=== PATIENT | male | born 1940 | race Caucasian/White ===

== ENCOUNTER 2019-10-05 22:07 | Observation (INO) ==
[2019-10-05] MEDS ORDERED: methylPREDNISolone 125 MG/2 ML VIAL IV STA (22:33)
[2019-10-05 22:54] LABS: Basophils # (auto) 0.03 K/uL (0-0.2); Basophils % (auto) 0.4 %; Eosinophils # (auto) 0.34 K/uL (0-0.5); Eosinophils % (auto) 4.2 %; Hematocrit (blood only) 42.7 % (42-52); Hemoglobin 13.8 g/dL (14.0-18.0); Immature Granulocytes # (auto) 0.03 K/uL (0.00-0.02); Immature Granulocytes % (auto) 0.4 %; Lymphocytes # (auto) 1.37 K/uL (1.2-3.4); Mean Corpuscular Hemoglobin 30.4 pg (25-34); Mean Corpuscular Hgb Conc 32.3 g/dL (32-36); Mean Corpuscular Volume 94.1 fL (80-100); Mean Platelet Volume 9.2 fL (7.4-10.4); Monocytes # (auto) 0.46 K/uL (0.11-0.59); Monocytes % (auto) 5.7 %; Neutrophils # (auto) 5.81 K/uL (1.4-6.5); Neutrophils % (auto) 72.3 %; Platelet Count 314 K/uL (130-400); RDW Coefficient of Variation 13.2 % (11.5-14.5); RDW Standard Deviation 45.2 fL (36.4-46.3); Red Blood Count 4.54 M/uL (4.7-6.1); White Blood Count 8.04 K/uL (4.8-10.8)
--- NOTE | 2019-10-05 23:06 | XRay Report ---
XR chest 1V portable CLINICAL HISTORY: Chest pain. COMPARISON STUDY: No previous studies for comparison. FINDINGS: Note is made of mild cardiomegaly. There is mild interstitial thickening. Right hilar promi nence is noted. A 1.1 cm nodular opacity within the left lower lung is noted. Multiple old right rib fractures are present. No consolidation is identified. There is suspected underlying emphysema. Multi level vertebroplasty within the thoracic spine is present. IMPRESSION: 1. Interstitial thickening. This may reflect mild pulmonary edema superimposed upon emphysema. 2. 1.1 cm nodular opacity within the left lower lung. PA and lateral chest radiographs are recommend ed. 3. Right hilar prominence, likely due to pulmonary vessels. However, this can be assessed on follow-u p chest radiograph. ACT 112: Negative or not required by law. Electronically signed by: Duglas Villafuerte M.D. 10/05/2019 11:05 PM
[2019-10-05 23:40] LABS: Partial Thromboplastin Time 25.8 Seconds (21.0-31.0); Prothrombin Time 10.4 Seconds (9.0-12.0)
[2019-10-05] MEDS ORDERED: SODIUM CHLORIDE 0.9% 1000ML 250 ML IV ONE (23:44)
[2019-10-05 23:49] LABS: Alanine Aminotransferase 25 U/L (12-78); Albumin Globulin Ratio 0.9 (0.9-2); Albumin Level 3.6 gm/dl (3.4-5.0); Alkaline Phosphatase 84 U/L (45-117); BUN Creatinine Ratio 16.9 (10-20); Bilirubin,Total 0.4 mg/dl (0.2-1); Blood Urea Nitrogen 22 mg/dl (7-18); Calcium 8.7 mg/dl (8.5-10.1); Carbon Dioxide 29 mmol/L (21-32); Chloride 106 mmol/L (98-107); Est GFR (African American) 62.2; Est GFR (Non-African American) 53.6; Globulin 4.1 gm/dl (2.5-4.0); Glucose 168 mg/dl (70-99); Lipase 90 U/L (73-393); Sodium 142 mmol/L (136-145); Total Protein 7.7 gm/dl (6.4-8.2); Troponin I < 0.015 ng/ml (0-0.045)
--- NOTE | 2019-10-05 23:57 | Emergency Department Note ---
Entered by Paras Kay acting as a scribe for History of Present Illness General Chief complaint: Shortness of Breath/Dyspnea Stated complaint: SOB Time Seen by Provider: 10/05/19 22:16 Source: patient History of Present Illness Onset (ago): hour(s) (this evening) Location: chest Pain Consistency: + constant Quality: + other (SOB) Relieved By: + other (steroids and breathing treatments) Associated symptoms: + denies other symptoms (diarrhea, pain or swelling to his legs, weight gain, trouble eating or drinking) and + other (bloated); no chest pain, no cough and no nausea/vomiting The patient is a 79 y/o male who presents to the ED w/ CC of constant shortness of breath beginning just after dinner this evening. The patient states he has a history of being short of breath, but it has never been this severe. He reports he felt baseline today, and he wears oxygen all the time for his history of COPD and possibly emphysema. The patient notes he ate more today than he normally does, and he feels very bloated. He states he uses an inhaler for his lung history, and he tried it today without relief. The patient reports he normally feels better after having steroids. He notes he came to the ED via EMS and was given two nebulizers in route, and it helped him. The patient states he has had his asthma since he was a child, and he has taken Metoprolol for a while. He reports he also has a history of a-fib and does not know when he is in a-fib. He notes he was evaluated in the [place] ED about a week ago for shortness of breath and a rapid heart rate. He states his symptoms were controlled and attributed to his a-fib at the time. The patient notes he also has a history of a leaky valve. He denies a history of CHF, DM, blood clots, and an [place]. He also denies coughing, chest pain, pain or swelling to his legs, weight gain, trouble eating or drinking, nausea, vomiting, and diarrhea. Home Medications Home Medications Medication Instructions Recorded Confirmed Type alprazolam 0.25 mg PO BID 10/05/19 10/05/19 History amitriptyline 0 mg PO DAILY 10/05/19 10/05/19 History aspirin [Aspirin Low Dose] 81 mg PO DAILY 10/05/19 10/05/19 History cyanocobalamin-cobamamide [B12] 1 kameron SUBLINGUAL DAILY 10/05/19 10/05/19 History fluticasone propionate [Flonase 1 spray INTRANASAL DAILY 10/05/19 10/05/19 History Allergy Relief] hydrochlorothiazide 12.5 mg PO DAILY 10/05/19 10/05/19 History lisinopril 0 mg PO DAILY 10/05/19 10/05/19 History metoprolol tartrate 50 mg PO BID 10/05/19 10/05/19 History mometasone [Asmanex Twisthaler] 2 inh INHALATION BID 10/05/19 10/05/19 History multivitamin 1 cap PO DAILY 10/05/19 10/05/19 History nitroglycerin [Nitrostat] 0.4 mg SUBLINGUAL DAILY PRN 10/05/19 10/05/19 History oxycodone-acetaminophen [Percocet] 1 tab PO TID 10/05/19 10/05/19 History pantoprazole [Protonix] 40 mg PO BID 10/05/19 10/05/19 History tamsulosin 0.4 mg PO DAILY 10/05/19 10/05/19 History tiotropium-olodaterol [Stiolto 2 puff INHALATION DAILY 10/05/19 10/05/19 History Respimat] Allergies Allergy/AdvReac Type Severity Reaction Status Date / Time No Known Allergies Allergy Unverified 10/05/19 22:53 Past Med/Surg History Medical History A-fib Asthma COPD (chronic obstructive pulmonary disease) Emphysema of lung Leaky heart valve Surgical History No pertinent past surgical history Family History Other Family history non-contributory Social History Feels Safe at Home: Yes Smoking Status: Never smoker Review of Systems See HPI for pertinent positives & negatives. and A total of 10 systems reviewed and were otherwise negative Physical Exam Vital Signs Vital Signs - 24 hr 10/05/19 22:11 10/05/19 22:15 10/05/19 22:34 Temperature 37.1 C Temperature Source Oral Pulse Rate 123 H Pulse Rate [Apical] Respiratory Rate Blood Pressure 173/104 H Blood Pressure [Right Arm] Blood Pressure Mean 127 Blood Pressure Mean [Right Arm] Pulse Oximetry 96 98 93 Oxygen Delivery Method Nasal Cannula Nasal Cannula Nasal Cannula Oxygen Flow Rate 5 5 5 Sepsis Recent Fever Within 48 Hours No Sepsis Action Taken by Nursing No Action Required 10/05/19 23:18 10/05/19 23:32 10/06/19 00:51 Temperature Temperature Source Pulse Rate Pulse Rate [Apical] 122 H 125 H 126 H Respiratory Rate 20 15 15 Blood Pressure Blood Pressure [Right Arm] 141/89 H 160/96 H 174/91 H Blood Pressure Mean Blood Pressure Mean [Right Arm] 106 117 118 Pulse Oximetry 96 98 95 Oxygen Delivery Method Nasal Cannula Nasal Cannula Nasal Cannula Oxygen Flow Rate 5 5 Sepsis Recent Fever Within 48 Hours Sepsis Action Taken by Nursing General: Non-ill appearing older male on supplemental oxygen. HEENT: Normal cephalic atraumatic. Pupils are equal round and reactive to light. Extraocular movements are intact. Oropharynx is pink with moist mucous membranes. No swelling of the mouth lips or tongue. Neck: Supple with a midline trachea. No meningeal signs or stiffness, no JVD or bruits. No Stridor. Chest: Clear to auscultation bilaterally. No wheezes or rhonchi. No increased work of breathing. Heart: Mildly tachycardic in the 120s with frequent ectopy. Abdomen: Soft nontender, nondistended without rebound guarding or rigidity. Extremities: No cyanosis clubbing or edema. No calf tenderness or asymmetry Spine/Back. Non tender to palpation. No CVA tenderness Skin: Good turgor without rashes. Neurologic exam: Cranial nerves two through 12 are intact. Motor and sensation are intact and symmetrical throughout. Course Course 2216: The patient was evaluated in room C10. A complete history and physical exam was performed. 2341: I reevaluated the patient. He is feeling slightly dizzy. His repeat EKG shows sinus rhythm. His vital signs are stable. His labs hemolyzed and are being redrawn. 0004: The patient is still tachycardic but feeling okay. I ordered a CT scan of the chest. 0054: Upon reevaluation, the patient is resting comfortably. I discussed laboratory and radiographic results with him. He verbalized agreement of the treatment plan. The patient will be evaluated for further management and care. 0100: I reviewed the patient's case with Dr. Allred, [facility]. He will evaluate the patient for further management. Administered Medications Ioversol (Optiray 320 125ml) 125 ml IV ONCE PRN PRN Reason: Interaction Checking Stop: 10/10/19 00:23 Last Admin: 10/06/19 00:25 Dose: 94 ml Documented by: [id number] Discontinued Medications Sodium Chloride (Nss 1000ml) 250 mls @ 999 mls/hr IV .Q16M ONE Stop: 10/05/19 23:59 Last Infusion: 10/06/19 00:28 Dose: 0 mls/hr Documented by: [id number] Admin: 10/05/19 23:53 Dose: 999 mls/hr Documented by: [id number] Methylprednisolone (Solumedrol) 125 mg IV NOW STA Stop: 10/05/19 22:34 Last Admin: 10/05/19 22:47 Dose: 125 mg Documented by: [id number] Medical Decision Making Differential Diagnosis Differential diagnosis includes: COPD exacerbation, CHF, arrhythmia, a-fib, infection, electrolyte or metabolic abnormalities. Medical Records Attestation: I reviewed the patient's medical records. Home Medications Current Medication List: was personally reviewed by me Laboratory Data Attestation: I reviewed the patient's lab results. Result diagrams: 10/05/19 22:45 10/05/19 23:15 Lab Results 10/05/19 10/05/19 10/05/19 Range/Units 22:45 22:45 22:45 WBC 8.04 (4.8-10.8) K/uL RBC 4.54 L (4.7-6.1) M/uL Hgb 13.8 L (14.0-18.0) g/dL Hct 42.7 (42-52) % MCV 94.1 (80-100) fL MCH 30.4 (25-34) pg MCHC 32.3 (32-36) g/dL RDW Std Deviation 45.2 (36.4-46.3) fL RDW Coeff of Nithya 13.2 (11.5-14.5) % Plt Count 314 (130-400) K/uL MPV 9.2 (7.4-10.4) fL Immature Gran % (Auto) 0.4 % Neut % (Auto) 72.3 % Lymph % (Auto) 17.0 % [place] % (Auto) 5.7 % Eos % (Auto) 4.2 % Baso % (Auto) 0.4 % Immature Gran # (Auto) 0.03 H (0.00-0.02) K/uL Neut # (Auto) 5.81 (1.4-6.5) K/uL Lymph # (Auto) 1.37 (1.2-3.4) K/uL [place] # (Auto) 0.46 (0.11-0.59) K/uL Eos # (Auto) 0.34 (0-0.5) K/uL Baso # (Auto) 0.03 (0-0.2) K/uL PT Cancelled INR Cancelled APTT Cancelled PTT Ratio Cancelled Sodium Cancelled Potassium Cancelled Chloride Cancelled Carbon Dioxide Cancelled Anion Gap Cancelled BUN Cancelled Creatinine Cancelled Est Cr Clr Drug Dosing Cancelled Est GFR ( Amer) Cancelled Est GFR (Non-Af Amer) Cancelled BUN/Creatinine Ratio Cancelled Glucose Cancelled Calcium Cancelled Magnesium Cancelled Total Bilirubin Cancelled AST Cancelled ALT Cancelled Alkaline Phosphatase Cancelled Troponin I Cancelled Total Protein Cancelled Albumin Cancelled Globulin Cancelled Albumin/Globulin Ratio Cancelled Lipase Cancelled 10/05/19 10/05/19 10/05/19 Range/Units 22:45 23:15 23:15 WBC (4.8-10.8) K/uL RBC (4.7-6.1) M/uL Hgb (14.0-18.0) g/dL Hct (42-52) % MCV (80-100) fL MCH (25-34) pg MCHC (32-36) g/dL RDW Std Deviation (36.4-46.3) fL RDW Coeff of Nithya (11.5-14.5) % Plt Count (130-400) K/uL MPV (7.4-10.4) fL Immature Gran % (Auto) % Neut % (Auto) % Lymph % (Auto) % [place] % (Auto) % Eos % (Auto) % Baso % (Auto) % Immature Gran # (Auto) (0.00-0.02) K/uL Neut # (Auto) (1.4-6.5) K/uL Lymph # (Auto) (1.2-3.4) K/uL [place] # (Auto) (0.11-0.59) K/uL Eos # (Auto) (0-0.5) K/uL Baso # (Auto) (0-0.2) K/uL PT 10.4 INR 1.0 APTT 25.8 PTT Ratio 1.0 Sodium 142 Potassium Chloride 106 Carbon Dioxide 29 Anion Gap 7.0 BUN 22 H Creatinine 1.28 Est Cr Clr Drug Dosing 38.0 Est GFR ( Amer) 62.2 Est GFR (Non-Af Amer) 53.6 BUN/Creatinine Ratio 16.9 Glucose 168 H Calcium 8.7 Magnesium Cancelled Total Bilirubin 0.4 AST ALT 25 Alkaline Phosphatase 84 Troponin I < 0.015 Total Protein 7.7 Albumin 3.6 Globulin 4.1 H Albumin/Globulin Ratio 0.9 Lipase 90 Imaging Data Radiologist's Impression: Radiology results as stated below per my review and the [facility] radiologist's interpretation: CTA CHEST: Soft tissues: Thoracic inlet, bilateral axilla are unremarkable. Severe kyphosis of the mid thoracic spine. Vertebroplasty/kyphoplasty changes are noted. Residual compression deformities of the lower thoracic and upper lumbar levels. Negative for any significant mediastinal lymphadenopathy. Small left and right hilar nodes are seen. There is atherosclerotic changes of the mitral valve, left greater than right coronary calcifications. Normal caliber of the pulmonary artery. Negative for pulmonary embolism. Negative for right ventricular strain. Upper abdomen: Normal Lungs: Extensive upper lung bullous and centrilobular emphysematous changes. 8 mm nodular opacity with small cavitation seen in the posterior right upper lobe and another 4 mm in the mid right upper lobe. Additional nodular scarring in the anterolateral periphery of the right middle lobe. Bilateral peripheral parenchymal pleural tags including in the right posterior upper lung. Left apical scarring is seen. Impression: 1. Negative for pulmonary embolism. 2. Extensive bilateral lung emphysematous changes with areas of nodular scarring. Right upper lung small nodular opacities are seen. Follow-up is suggested. 3. Severe kyphosis of the thoracolumbar spine with vertebroplasty/kyphoplasty changes. Residual compression deformities. Radiologist: Anita Chacon MD Study ready at 00:27 and initial results transmitted at 00:53 ECG Data Attestation: I personally reviewed and interpreted this ECG as follows: Indication: + SOB/dyspnea Rate (beats per minute): 123 Rhythm: + sinus tachycardia ECG ST segments: + Nonspecific ST abnormalities ECG Findings: + PVCs (Occasional), + LVH and + Other (Poor baseline, nonspecific T wave abnormalities) Comparison ECG Date: no prior available Additional Comments: REPEAT EKG IN THE SAME VISIT: Sinus tachycardia with a rate of 119. LVH. No ST elevation or ST depression. No change from the patient's initial EKG. Blood Pressure Blood Pressure Findings: Elevated blood pressure Blood Pressure Disposition: further management by hospitalist [facility] Narrative This patient comes in as described above. He has had some shortness of breath. He did receive albuterol nebs prior to arrival and was feeling quite a bit better. He still remains tachycardic. He denies any chest pain. He does have history of A. fib. On the monitor is difficult to say initially because he has a lot of ectopy but it appears to be's normal sinus rhythm. He has stable vital signs is normotensive with exception of some sinus tachycardia. He has had no swelling in his legs. He has no crackles on his lungs and if anything the lungs are diminished he was offered further nebs and declined he had 2 on route that could be causing some of his tachycardia chest x-ray shows some chronic changes he may have a mild congestive component. He has no pneumonia. EKG when repeated shows sinus tachycardia without any changes compared to EKG #1. He has no white count or fever to suggest infection. He is not anemic. He has no acute electrolyte or metabolic abnormalities. Troponin is negative. I did do a chest CTA there is no PE, there is no pneumonia. There is some chronic emphysematous changes. There is some small apical lesions in the body the report they do report a small cavitary component. I do not think this is likely TB but did put him on respiratory/airborne isolation. I have consulted Dr. Allred who to see him in the ER for further treatment and evaluation and admission/observation. Impression & Plan Acute exacerbation of chronic obstructive airways disease, Shortness of breath, Tachycardia, Lung nodule Discharge Plan Visit Data Chief Complaint: Shortness of Breath/Dyspnea Stated Complaint: SOB ED Provider: [place] D Discharge Problem: Acute exacerbation of chronic obstructive airways disease, Shortness of breath, Tachycardia, Lung nodule Patient Disposition: Being Evaluated by Hospitalist Forms Stand Alone Forms: My [facility] Prescriptions Prescriptions: No Action aspirin [Aspirin Low Dose] 81 mg Tablet,Delayed Release (Dr/Ec) 81 mg PO DAILY RF: 0 oxycodone-acetaminophen [Percocet] 5-325 mg Tablet 1 tab PO TID RF: 0 alprazolam 0.25 mg Tablet 0.25 mg PO BID RF: 0 tamsulosin 0.4 mg Capsule 0.4 mg PO DAILY RF: 0 amitriptyline 10 mg Tablet 0 mg PO DAILY RF: 0 pantoprazole [Protonix] 40 mg Tablet,Delayed Release (Dr/Ec) 40 mg PO BID RF: 0 metoprolol tartrate 50 mg Tablet 50 mg PO BID RF: 0 hydrochlorothiazide 12.5 mg Capsule 12.5 mg PO DAILY RF: 0 nitroglycerin [Nitrostat] 0.4 mg Tablet, Sublingual 0.4 mg sublingual DAILY PRN (Reason: Chest Pain) RF: 0 lisinopril 5 mg Tablet 0 mg PO DAILY RF: 0 multivitamin Capsule 1 cap PO DAILY RF: 0 fluticasone propionate [Flonase Allergy Relief] 50 mcg/actuation [place],Suspension 1 spray INTRANASAL DAILY RF: 0 Asmanex Twisthaler 110 mcg/ actuation (30) Aerosol Powdr Breath Activated 2 inh INHALATION BID RF: 0 B12 5,000-100 mcg Lozenge 1 kameron SUBLINGUAL DAILY RF: 0 Stiolto Respimat 2.5-2.5 mcg/actuation Mist 2 puff INHALATION DAILY RF: 0 Referrals Referrals: PCP,NO [Primary Care Provider] - The juvenalibe's documentation has been prepared under my direction and personally reviewed by me in its entirety. I confirm that the note above accurately reflects all work, treatment, procedures, and medical decision making performed by me.
[2019-10-06] MEDS ORDERED: OPTIRAY 320 125ml IV PRN (00:24)
[2019-10-06] MEDS ORDERED: FLUTICASONE PROPIONATE NA SPR 16 GM BTL STA (01:46)
[2019-10-06] MEDS ORDERED: NITROGLYCERIN SL 0.4 MG/TAB TAB SL PRN ×2 (02:59)
[2019-10-06] MEDS ORDERED: ACETAMINOPHEN 325 MG TAB PO PRN (02:59)
[2019-10-06] MEDS ORDERED: LEVALBUTEROL 1.25MG/0.5ML NEB INH PRN (02:59)
[2019-10-06] MEDS ORDERED: ONDANSETRON INJ 2 MG/ML 2 ML VIAL IV PRN (02:59)
[2019-10-06] MEDS ORDERED: IPRATROPIUM BROMIDE NEB SOLN 0.02% 2.5 ML VIAL INH PRN (02:59)
[2019-10-06] MEDS ORDERED: XOPENEX/ATROVENT 1.25mg/0.5MG NEB COMBO NEB PRN (02:59)
[2019-10-06] MEDS ORDERED: POLYETHYLENE (MIRALAX) 17 GM PACK PO PRN (02:59)
[2019-10-06] MEDS ORDERED: OXYCODONE/ACETAMINOPHEN 5mg/325mg TAB PO STA (03:14)
--- NOTE | 2019-10-06 04:16 | History and Physical Report ---
DATE OF ADMISSION: 10/06/2019 CHIEF COMPLAINT: Shortness of breath. HISTORY OF PRESENT ILLNESS: A 79-year-old male with past medical history significant for COPD, chronic respiratory failure on 5 liters oxygen all the time, recently found to have a leaky heart valve, history of atrial fibrillation, not on anticoagulation except for aspirin secondary to history of gastric ulcers, history of asthma, comes with shortness of breath. The patient from [facility], visiting the [facility], here for last couple of days. On the day after dinner, started feeling short of breath, this got progressively worse that is why he came to the ER. Currently, is saturating okay on his baseline 5 liters though he seems to be somewhat tachypneic. He was tachycardic and EKG shows sinus tachycardia. Denies any chest pain. Currently feeling better. Denies any cough, no headaches, felt dizzy. No blurred visions. No earache. Has some stuffed nose. No sore throat, no difficulty swallowing, no chest pain, no nausea, no vomiting, no abdominal pain. Normal bowel and bladder movements. No blood in the stools or black stools, no hematuria, no burning micturition, no swelling of the legs, no rash. Ambulates okay. Denies any exposure to TB or any outside travelling out of the country. ALLERGIES: No known drug allergies. PAST MEDICAL HISTORY: As mentioned above. PAST SURGICAL HISTORY: He has 2 lumbar laminectomies and one kyphoplasty, right hip surgery. MEDICATIONS: The patient is on alprazolam 0.25 mg b.i.d., amitriptyline 25 mg p.o. daily, aspirin 81 mg p.o. daily, cyanocobalamin 1000mcg sublingual daily, Flonase 1 spray daily, hydrochlorothiazide 12.5 daily, lisinopril 5 mg daily, metoprolol 50 mg p.o. b.i.d., Asmanex 2 inhalations b.i.d., multivitamin 1 capsule daily, nitroglycerin 0.4 mg sublingual p.r.n., Percocet 1 tablet p.o. t.i.d., Protonix 40 mg p.o. b.i.d., Flomax 0.4 mg daily, Stiolto Respimat 2 inhalation daily. FAMILY HISTORY: Noncontributory. SOCIAL HISTORY: Quit smoking 8 years ago. Prior to that smoked 1 pack a day. Alcohol rarely. Lives with his mother and the daughter. REVIEW OF SYMPTOMS: As per HPI. Rest of review of symptoms negative. PHYSICAL EXAMINATION: GENERAL: The patient is of moderate build, not in acute distress. VITAL SIGNS: Temperature 37.1, pulse 117, respiratory rate 20, blood pressure 148/75, oxygen 98% on 5 liters. HEENT: Pupils equal, round, reactive to light. Extraocular muscles intact. NECK: No JVD, no neck masses, no carotid bruits. CARDIOVASCULAR: S1, S2 heard. Tachycardia. No murmurs. RESPIRATORY SYSTEM: Normal AP diameter, tachypnea. Diminished breath sounds. No wheezing, no crackles. ABDOMEN: Soft, bowel sounds present. No distention. CENTRAL NERVOUS SYSTEM: Cranial nerves II-XII grossly intact. Nonfocal. EXTREMITIES: No edema, no erythema. LABORATORY DATA: WBC 8, hemoglobin 13.8, hematocrit 42.7, platelets 314. PT 10.4, INR 1, APTT 25.8. Sodium 142, chloride 106, [id number], BUN 22, creatinine 1.2, serum glucose 168, calcium 8.7, total bilirubin 0.4, ALT 25, alkaline phosphatase 84. Troponin I less than 0.015. Lipase 90. Chest x-ray, interstitial thickening is noted with mild pulmonary edema, superimposed on emphysema, 1.1 cm nodular opacity with left lung, PA and lateral chest radiographs are recommended, right hilar prominence likely due to pulmonary vessels, followup with repeat chest x-ray. CTA chest stat read negative for pulmonary embolism, extensive bilateral lung emphysematous changes with areas of nodular scarring, right upper lung small nodular opacities are seen. severe kyphosis of the thoracolumbar spine with vertebroplasty, kyphoplasty changes with compression deformities. EKG: Sinus tachycardia. PACs at the rate of 119. Left ventricular hypertrophy with repolarization abnormality. ASSESSMENT AND PLAN: This is a 79-year-old male with history of chronic obstructive pulmonary disease, chronic respiratory failure, presents with shortness of breath. 1. Shortness of breath: chronic obstructive pulmonary disease exacerbation: CTA negative for pulmonary embolism but showed nodular lesions, nebs and steroids given in the ER, will continue with IV Solu-Medrol 40 t.i.d., nebs with Xopenex, nebs around the clock and p.r.n. and p.o. doxycycline. We will consult pulmonary for nodular lesions with cavitations and follow the final report of the CAT scan. On isolation precautions. Monitor in tele floor. 2. History of atrial fibrillation: Currently in sinus rhythm. He says he follows with cardiology. He was not put on anticoagulation secondary to history of gastric ulcers. Currently on metoprolol 50 b.i.d. which we will continue and aspirin 81 mg p.o. daily. We will monitor. 3. Hypertension: Continue his lisinopril hydrochlorothiazide and Lopressor. Monitor the blood pressure. 4. Gastroesophageal reflux disease: Continue PPI. 5. BPH: Continue Flomax. 6. Deep venous thrombosis prophylaxis: SCDs. DISPOSITION: Monitor in tele floor. Level 1 full code, only if there is chance of recovery as per my discussion with the patient. PT and OT per discharge. Social Service to help with discharge planning. MITCH
--- NOTE | 2019-10-06 06:49 | CT Scan Report ---
CT ANGIOGRAM OF THE CHEST CLINICAL HISTORY: Atypical chest pain and shortness of breath. Possible pulmonary embolism. COMPARISON STUDY: Chest x-ray dated 10/05/2019 TECHNIQUE: Following the IV administration of 94 mL of Optiray-320, CT angiogram of the thorax was pe rformed from the thoracic inlet to the lung bases utilizing the pulmonary embolus protocol. Images ar e reviewed in the axial, sagittal, and coronal planes. IV contrast was administered without complicat ion. MIP imaging was performed. A dose lowering technique was utilized adhering to the principles of ALARA. CT DOSE: 323.73 mGy.cm FINDINGS: Hilar lymph nodes are the upper limits of normal in size. There is no pathologic mediastinal or axill perez lymphadenopathy There was no evidence of thoracic aortic dilatation. There were no pulmonary artery filling defects to indicate acute pulmonary embolism. No pleural effusions are visualized. There is severe pulmonary emphysema. There is a 1 cm pleural-based density within the lingula which c orresponds to the abnormality described on the recent chest x-ray. There is a 1 cm right upper lobe p ulmonary nodule. There is a 17 x 8 mm pleural-based opacity within the right lower lobe. There is no lobar consolidation. There are additional subpleural nodular parenchymal opacities, statistically rep resenting atelectasis or scar. A six-month follow-up CT scan is recommended. There are multiple thora cic vertebral body compression deformities. The patient is status post 3 level vertebroplasty. IMPRESSION: 1. No evidence of acute pulmonary embolism 2. Severe pulmonary emphysema 3. Multifocal subpleural nodular opacities, likely represent areas of atelectasis or scarring. Given the nonspecificity of the findings, a six-month follow-up CT scan is recommended. ACT 112: Negative or not required by law. Electronically signed by: Giovanni Vaca M.D. 10/06/2019 6:48 AM
[2019-10-06] MEDS ORDERED: IPRATROPIUM BROMIDE NEB SOLN 0.02% 2.5 ML VIAL INH SCH (07:00)
[2019-10-06] MEDS ORDERED: XOPENEX/ATROVENT 1.25mg/0.5MG NEB COMBO NEB SCH (07:00)
[2019-10-06] MEDS ORDERED: LEVALBUTEROL 1.25MG/0.5ML NEB INH SCH (07:00)
[2019-10-06 07:10] LABS: Hemoglobin 13.1 g/dL (14.0-18.0); Immature Granulocytes # (auto) 0.03 K/uL (0.00-0.02); Immature Granulocytes % (auto) 0.5 %; Lymphocytes # (auto) 0.31 K/uL (1.2-3.4); Lymphocytes % (auto) 4.8 %; Mean Corpuscular Hemoglobin 29.8 pg (25-34); Mean Corpuscular Volume 93.2 fL (80-100); Mean Platelet Volume 9.2 fL (7.4-10.4); Monocytes # (auto) 0.02 K/uL (0.11-0.59); Monocytes % (auto) 0.3 %; Neutrophils # (auto) 6.04 K/uL (1.4-6.5); Neutrophils % (auto) 94.4 %; Platelet Count 343 K/uL (130-400); RDW Coefficient of Variation 13.1 % (11.5-14.5); RDW Standard Deviation 44.9 fL (36.4-46.3)
[2019-10-06 07:30] LABS: BUN Creatinine Ratio 17.9 (10-20); Calcium 9.1 mg/dl (8.5-10.1); Creatinine Clr Calc Pharmacy 37.7 ml/min; Est GFR (African American) 67.2; Magnesium 1.9 mg/dl (1.8-2.4); Potassium 4.2 mmol/L (3.5-5.1)
[2019-10-06] MEDS ORDERED: STIOLTO~ORDER AWAITING ACTION SCH (08:00)
[2019-10-06] MEDS ORDERED: ASPIRIN 81 MG ECTAB PO SCH (09:00)
[2019-10-06] MEDS ORDERED: METOPROLOL TARTRATE 50 MG TAB PO SCH (09:00)
[2019-10-06] MEDS ORDERED: methylPREDNISolone 40 MG in SYRINGE 0 ML IV SCH (09:00)
[2019-10-06] MEDS ORDERED: DOXYCYCLINE HYCLATE 100 MG CAP PO SCH (09:00)
[2019-10-06] MEDS ORDERED: OXYCODONE/ACETAMINOPHEN 5mg/325mg TAB PO SCH (09:00)
[2019-10-06] MEDS ORDERED: ALPRAZolam 0.25 MG TABLET PO SCH (09:00)
[2019-10-06] MEDS ORDERED: MULTIVITAMIN TAB PO SCH (09:00)
[2019-10-06] MEDS ORDERED: hydroCHLOROthiazide 25 MG TAB PO SCH (09:00)
[2019-10-06] MEDS ORDERED: PANTOprazole 40 MG TAB PO SCH (09:00)
[2019-10-06] MEDS ORDERED: TAMSULOSIN HCL 0.4 MG CAP PO SCH (09:00)
[2019-10-06] MEDS ORDERED: CYANOCOBALAMIN (VITAMIN B-12) 2,500 MCG TAB.SUBL SL SCH (09:00)
[2019-10-06 09:18] LABS: Base Excess ABG 1.1 mEq/L (-9-1.8); HCO3 ABG 24 mmol/L (19-24); Oxygen Saturation ABG 92.5 % (90-95); PCO2 ABG 31 mmHg (35-46); PO2 ABG 58 mm/Hg (80-95)
[2019-10-06 09:20] LABS: Allen Test Pos (Pos)
--- NOTE | 2019-10-06 10:47 | Pulmonary Consultation ---
Date of Consultation October 06, 2019 Assessment & Plan (1) Acute exacerbation of chronic obstructive airways disease: --Acute on chronic hypoxic respiratory failure Likely secondary to COPD exacerbation Currently patient is not wheezing, and seems to be very comfortable back to his baseline Can transition IV Solu-Medrol to p.o. prednisone 40 mg for 3 days followed by 20 mg for 2 days. Continue with inhaled bronchodilators, Mucomyst, continue with doxycycline for total of 5 days. Patient does not need to be on respiratory isolation. At the time of discharge patient is to be on LAMA and Labe/ICS inhaler which she is already on. --Pulmonary nodule Right upper lobe To me this is most likely looks like atelectasis/scarring There is no previous CAT scan to compare The best thing will be to repeat a CAT scan in 3 to 6 months. CTA chest personally reviewed: There is no mediastinal lymphadenopathy, there is severe emphysema appreciated bilaterally. From pulmonary perspective patient is back to his baseline. Patient is to follow-up with his pulmonary doctor within 2 weeks of discharge. Pulmonary rehab will be beneficial for the patient. No further pulmonary recommendations. Recall if needed. (2) Shortness of breath: (3) Pulmonary nodule: History of Present Illness Attending Physician: Tania Griffith MD History of Present Illness 79-year-old pleasant male with past medical history of severe COPD on home oxygen 5 L nasal cannula, history of A. fib only on aspirin, GERD, BPH came to the hospital with complaints of shortness of breath that started after having a large meal. Patient states that usually he has small portion of meals and he knows that whenever he eats large meals he gets short of breath. He had a large meal on the [employer] dinner leading to shortness of breath. Patient has chronic cough but it has not changed in intensity or frequency. Patient brings up clear phlegm. Patient denies any chest pain, no dysuria, no diarrhea. No recent upper respiratory tract infection. No runny nose, no tearing from the eyes. No headache, no dizziness, no nausea or vomiting. Patient states that he is compliant with his inhalers at home. Patient denies any night sweats. No unintentional weight loss. No recent travel history. No history of exposure to TB. No personal history of TB. At the time of examination patient was saturating 93% on 3 L nasal cannula with a heart rate of 103 at rest. Social history: Greater than [id number] smoking history quit approximately 8 years ago, daily a glass of whiskey in the afternoon, no illicit drug use. 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 Has a dog and cat at home which he is not allergic to. Unsure whether he has exposure to asbestos. Denies any prior intubations for shortness of breath. No family history of lung cancer. Allergies Allergy/AdvReac Type Severity Reaction Status Date / Time No Known Allergies Allergy Unverified 10/05/19 22:53 Home Medications Home Medications Medication Instructions Recorded Confirmed Type alprazolam 0.25 mg PO BID 10/05/19 10/05/19 History amitriptyline 0 mg PO DAILY 10/05/19 10/05/19 History aspirin [Aspirin Low Dose] 81 mg PO DAILY 10/05/19 10/05/19 History cyanocobalamin-cobamamide [B12] 1 kaemron SUBLINGUAL DAILY 10/05/19 10/05/19 History fluticasone propionate [Flonase 1 spray INTRANASAL DAILY 10/05/19 10/05/19 History Allergy Relief] hydrochlorothiazide 12.5 mg PO DAILY 10/05/19 10/05/19 History lisinopril 0 mg PO DAILY 10/05/19 10/05/19 History metoprolol tartrate 50 mg PO BID 10/05/19 10/05/19 History mometasone [Asmanex Twisthaler] 2 inh INHALATION BID 10/05/19 10/05/19 History multivitamin 1 cap PO DAILY 10/05/19 10/05/19 History nitroglycerin [Nitrostat] 0.4 mg SUBLINGUAL DAILY PRN 10/05/19 10/05/19 History oxycodone-acetaminophen [Percocet] 1 tab PO TID 10/05/19 10/05/19 History pantoprazole [Protonix] 40 mg PO BID 10/05/19 10/05/19 History tamsulosin 0.4 mg PO DAILY 10/05/19 10/05/19 History tiotropium-olodaterol [Stiolto 2 puff INHALATION DAILY 10/05/19 10/05/19 History Respimat] Patient History Medical History A-fib Asthma COPD (chronic obstructive pulmonary disease) Emphysema of lung Leaky heart valve Surgical History No pertinent past surgical history Family History Other Family history non-contributory Social History Preferred Language: Italian Communication Ability: Effective 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 Required: No Beliefs That Will Affect Care: None Current Living Situation: Family Other Information That Helps Us Care for You: No Feels Safe at Home: Yes Safety Concerns: Feels Safe At This Time Smoking Status: Former smoker Tobacco Cessation Education Requested by Patient: No Hx Alcohol Use: Yes Alcohol type: hard liquor Hx Substance Use: No Review of Systems Review of Systems: All systems reviewed & are unremarkable except as noted in HPI & below Physical Exam Physical Exam: Constitutional: No acute distress HEENT: EOMI, PERRLA, Mallam Delphine 3 Respiratory system: Decreased air entry bilaterally, mild bilateral lower lobe crackles, no wheeze, no rhonchi CVS: S1-S2 positive, distant heart sounds Abdomen: Soft, nontender, nondistended, positive bowel sounds x4 Extremities: +2 pulses bilaterally radialis/ dorsalis pedis, no cyanosis, no edema Neuro: Awake alert oriented x3 Psych: Normal mood and affect G/U: No Parada Skin: no rashes, warm and dry Lymphatic: no cervical or axillary lymphadenopathy Results & Data Vital Signs (Past 12 Hours) Vital Signs Temp Pulse Pulse Resp BP Pulse Ox 10/06/19 07:52 108 H 18 97 10/06/19 07:41 36.5 C 111 H 108 H 20 151/60 H 97 10/06/19 03:12 36.5 C 105 H 18 196/93 H 100 10/06/19 02:16 114 H 20 169/97 H 100 10/06/19 01:40 117 H 20 148/75 H 98 10/06/19 00:51 126 H 15 174/91 H 95 10/05/19 23:32 125 H 15 160/96 H 98 10/05/19 23:18 122 H 20 141/89 H 96 10/06/19 06:51 10/06/19 06:51 10/06/19 08:59 ABG pH 7.50 H ABG pCO2 31 L ABG pO2 58 L ABG HCO3 24 ABG O2 Saturation 92.5 ABG Base Excess 1.1 PG Care Time/CCT Total # of Minutes Spent Total Time Spent with Patient: Total time spent is greater than 50% in coordination of care (as documented) at patient's floor/unit and/or counseling patient:
--- NOTE | 2019-10-06 12:46 | Discharge Summary ---
Date of Service October 06, 2019 Admission HPI Per Admitting Provider [facility], [place] History and Physical Report Signed Patient: HERMILO FARAH IVAdmit Date: 10/06/19 MR#: [id number] Phy: Tania Griffith MD Acct ID:[id number] Phy: PCP,NO Date: 1940Fam Phy: Age: 79Location: 2S Sex: M Room/Bed: [facility] cc: ~ DICTATED BY: Jose Guadalupe Allred MD DATE OF ADMISSION: 10/06/2019 CHIEF COMPLAINT: Shortness of breath. HISTORY OF PRESENT ILLNESS: A 79-year-old male with past medical history significant for COPD, chronic respiratory failure on 5 liters oxygen all the time, recently found to have a leaky heart valve, history of atrial fibrillation, not on anticoagulation except for aspirin secondary to history of gastric ulcers, history of asthma, comes with shortness of breath. The patient from [facility], visiting the [facility], here for last couple of days. On the day after dinner, started feeling short of breath, this got progressively worse that is why he came to the ER. Currently, is saturating okay on his baseline 5 liters though he seems to be somewhat tachypneic. He was tachycardic and EKG shows sinus tachycardia. Denies any chest pain. Currently feeling better. Denies any cough, no headaches, felt dizzy. No blurred visions. No earache. Has some stuffed nose. No sore throat, no difficulty swallowing, no chest pain, no nausea, no vomiting, no abdominal pain. Normal bowel and bladder movements. No blood in the stools or black stools, no hematuria, no burning micturition, no swelling of the legs, no rash. Ambulates okay. Denies any exposure to TB or any outside travelling out of the country. Principal Diagnosis COPD exacerbation Discharge Exam Constitutional WD/WN, vitals as above no acute distress Eyes PERRL, conjunctivae normal, anicteric sclerae ENMT external ear and nose normal, oropharynx normal Neck trachea midline, no thyromegaly Respiratory no cough Auscultation: + diminished lung sounds; no rales and no wheezes Cardiovascular RRR, no murmur, no edema Gastrointestinal (Abdomen) normal bowel sounds, soft, nontender, no hepatosplenomegaly Musculoskeletal no cyanosis or clubbing, extremities motor strength 5/5 Skin no rashes, warm and dry Neurologic PERRL, EOMI, accommodation nl, no face palsy, no dysarthria Psychiatric A+Ox3, euthymic affect Discharge Data Allergies Allergy/AdvReac Type Severity Reaction Status Date / Time No Known Allergies Allergy Unverified 10/05/19 22:53 Consultations 10/06/19 00:59 ED Decision to Admit Stat 10/06/19 02:59 Consult Case Management - Discharge Planning Routine 10/06/19 08:00 Consult Pulmonology Routine Ordered Studies 10/06/19 00:04 CT angio chest PE protocol Urgent Hospital Course (1) Acute exacerbation of chronic obstructive airways disease: At baseline patient has advanced COPD/chronic respiratory failure on 5 L home oxygen continuous Admitted with hypoxia, shortness of breath Respiratory status improved to baseline after nebulizer treatment IV steroids Chest x-ray: interstitial thickening is noted with mild pulmonary edema, superimposed on emphysema, 1.1 cm nodular opacity with left lung, CTA chest :negative for pulmonary embolism, extensive bilateral lung emphysematous changes with areas of nodular scarring, right upper lung small nodular opacities are seen. Outpatient repeat surveillance CT chest in 3 to 6 months recommended Patient input from pulmonology And appears to be at his baseline respiratory status, okay to be discharged from hospital, with prednisone taper Patient will be continuing to use his home inhalers, [facility] copy of the chart given to patient on discharge To be discharged home Hypertension: BP stable patient is continued with lisinopril hydrochlorothiazide and Lopressor: Home meds (2) Pulmonary nodule: Incidental finding in CT chest with contrast: 1 cm right upper lobe pulmonary nodule. There is a 17 x 8 mm pleural-based opacity within the right lower lobe. There is no lobar consolidation. There are additional subpleural nodular parenchymal opacities, statistically representing atelectasis or scar. A six-month follow-up CT scan is recommended. CODE STATUS: Full code Disposition: Stable to be discharged home today Total Time Total Time Spent Total Time Spent (In Minutes): Approximately 35 minutes Total Time Includes: Examination of the Patient, Discharge Planning and Medication Reconciliation Discharge Plan Discharge Items Patient Disposition: Home - Self-Care Reason For Visit: SOB Discharge Diagnosis: COPD exacerbation Activity: Resume your previous activity Non-emergency contact: Primary Care Provider Call non-emergency contact if: you have any medication questions Follow-up/Referrals: PCP,NO [Primary Care Provider] - Diet: Heart Healthy Addtl Attending Provider Instructions: HOSPITAL FOLLOW UP WITH FAMILY PHYSICIAN [facility] [place] WITH IN A WEEK PLEASE CALL TO MAKE AN APPOINTMENT CT CHEST WITH CONTRAST DONE AT [facility] SHOWS PLEURAL BASED NODULE , REPEAT CT CHEST IN 3-6 MONTHS IS RECOMMENDED FOR SURVILLANCE Pending Studies at Discharge: Yes Studies:: CT CHEST WITH CONTRAST IN 3-6 MONTHS FOR EVALUATION OF PULMONARY NODULE Stand-Alone Forms: My [facility] [email or web address], Smoking Cessation Medications and DC Order Prescriptions: New doxycycline hyclate 100 mg Capsule 100 mg PO BID 4 Days Qty: 8 RF: 0 prednisone 20 mg tablet 40 mg PO DAILY 5 Days Qty: 8 RF: 0 Continued aspirin [Aspirin Low Dose] 81 mg Tablet,Delayed Release (Dr/Ec) 81 mg PO DAILY RF: 0 oxycodone-acetaminophen [Percocet] 5-325 mg Tablet 1 tab PO TID RF: 0 alprazolam 0.25 mg Tablet 0.25 mg PO BID RF: 0 tamsulosin 0.4 mg Capsule 0.4 mg PO DAILY RF: 0 amitriptyline 10 mg Tablet 0 mg PO DAILY RF: 0 pantoprazole [Protonix] 40 mg Tablet,Delayed Release (Dr/Ec) 40 mg PO BID RF: 0 metoprolol tartrate 50 mg Tablet 50 mg PO BID RF: 0 hydrochlorothiazide 12.5 mg Capsule 12.5 mg PO DAILY RF: 0 nitroglycerin [Nitrostat] 0.4 mg Tablet, Sublingual 0.4 mg sublingual DAILY PRN (Reason: Chest Pain) RF: 0 lisinopril 5 mg Tablet 0 mg PO DAILY RF: 0 multivitamin Capsule 1 cap PO DAILY RF: 0 fluticasone propionate [Flonase Allergy Relief] 50 mcg/actuation [place],Suspension 1 spray INTRANASAL DAILY RF: 0 Asmanex Twisthaler 110 mcg/ actuation (30) Aerosol Powdr Breath Activated 2 inh INHALATION BID RF: 0 B12 5,000-100 mcg Lozenge 1 kameron SUBLINGUAL DAILY RF: 0 Stiolto Respimat 2.5-2.5 mcg/actuation Mist 2 puff INHALATION DAILY RF: 0 Discharge Orders: Discharge Order (Routine); Ordered 10/06/19 Ordered By: Tania Griffith Admission Data Admit Date/Time: 10/06/19 01:44 Attending Provider: Tania Griffith Admit Provider: Jose Guadalupe Allred Primary Care Provider: PCP,NO Other Providers: Jose Guadalupe Allred ; Ethan Magaña Other Interventions: Discharge Summary Assessment (RN) Last Done: 10/06/19 13:36 DC Date/Time DO NOT enter until pt leaves facility: 10/06/19 14:18
[2019-10-07] MEDS ORDERED: FLUTICASONE PROPIONATE NA SPR 16 GM BTL SCH (09:00)
--- NOTE | 2019-10-14 13:27 | Coding Query ---
To promote full compliance with coding requirements relating to patient care, provider participation is requested in all cases of special education director uncertainty. Please assist us with the question(s) below: Coding Question(s): The diagnosis(es) below was documented in the Pulmonary Consultation, then subsequently fell off all further documentation. Please indicate if it is still a possible diagnosis or ruled out. Physician's Response(s): ACUTE ON CHRONIC HYPOXIC RESPIRATORY FAILURE (regarding the Acute part) ( ) Diagnosed and POA ( ) Diagnosed and not POA ( ) Ruled out ( ) Other (please specify) MTDD
== END 2019-10-06 14:18 | disposition home or self-care (01) ==
LOC: ED 22:07 → 2S 10-06 01:44 → INTOOBSV 10-06 01:44 → 2S 10-06 02:17

== ENCOUNTER 2022-02-02 18:31 | Inpatient (IN) ==
--- NOTE | 2022-02-02 18:40 | Emergency Department Note ---
Impression & Plan Hypoxemia, Abdominal pain, Acute dyspnea, Nausea & vomiting, Closed L1 vertebral fracture ED Provider Note NAME: HERMILO FARAH IV AGE: 81 SEX: M : 1940 ARRIVES VIA: Walk-In INFORMANT: Patient, ED PROVIDER(S): Ian Alanis MD Chief Complaint: Abdominal pain, vomiting HPI: Patient presents with complaint of upper abdominal pain associated vomiting. The patient has also had associated shortness of breath and does have a history of COPD. Patient placement 15 years ago and does wear chronic oxygen therapy. Patient does take his inhalers in the morning but this did not much improve his shortness of breath. Patient has no chest pain or cough. Patient denies any leg swelling. Patient denies any recent changes in medications or trauma to the abdomen. Patient states he had a recent bowel movement denies any dysuria hematuria. Patient denies any known sick contacts or recent travel. Patient had an echo completed in January 2021 which showed slightly decreased EF at 40% with normal LV cavity and wall thickness. Mild dilatation of the left and right atrium with normal aortic root. There was moderate mitral regurg. Aortic valve is mildly thickened with mild aortic insufficiency. ROS: See HPI for pertinent positives and negatives. A total of 10 systems were reviewed and otherwise negative. Past medical history: See below Surgical history: See below Social history: See below Physical Exam: GENERAL: Tachypneic, mildly ill in appearance, wearing glasses, nasal cannula in place. EYE EXAM: Normal conjunctiva. PERRL, no anisocoria and EOM's grossly intact w/o pain. OROPHARYNX: Dry mucus membranes. Grossly normal dentition. NECK: Supple, no nuchal rigidity, no adenopathy, non-tender. No signs of meningismus. LUNGS: Decreased breath sounds throughout, tachypnea noted with accessory muscle use. HEART: Tachycardic and regular, no MRG. ABDOMEN: Abdomen soft, epigastric pain without lower abdominal pain, normo- active bowel sounds, no masses, no rebound or guarding. BACK: No CVA TTP. SKIN: No rashes and no bruising. UPPER EXTREMITIES: Upper extremities are grossly normal. LOWER EXTREMITIES: Grossly normal, no edema. Negative Homans' sign bilaterally. NEURO EXAM: A&O x3, cranial nerves II-XII grossly intact, normal speech, moves all 4 extremities on command w/o issue. Differential diagnoses: Reactive airway disease, pneumonia, pneumothorax, COPD, CHF, infections, cardiac ischemia, pulmonary embolism, musculoskeletal, gastrointestinal, as well as other pathologies. Appendicitis, testicular torsion, infections, diverticulitis, UTI, obstruction, mesenteric ischemia, ao rtic pathology, inflammatory bowel disease, renal colic, PUD, pancreatitis, biliary pathology, hernia, volvulus, constipation, as well as other pathologies. Course: Patient was seen and evaluated the bedside. Full history physical exam was performed. Imaging Studies: See Below CT abdomen pelvis did show an L1 fracture. Cardiac monitoring: An order was placed for continuous cardiac monitoring. The monitor shows a rate of 105 with tachycardic and regular rhythm. MDM: Patient had blood work routine obtained along with CT abdomen pelvis. I did place patient on BiPAP as patient had significant respiratory difficulty and was hypoxemic on his baseline 5 L. Blood work showed mild leukopenia with anemia and thrombocytopenia. Patient's kidney function unremarkable. VBG showed chronic hypercarbia with normal pH. Patient's BNP was elevated. Patient did go to CAT scan and did receive some fentanyl for some back discomfort. The patient's troponin was not elevated. MRSA screen negative COVID flu and RSV negative. Pro-Reymundo is not elevated. The patient did receive an empiric dose of antibiotics as a precaution. The patient CT did show L1 fracture which may be contributory to her symptoms. The patient did have improvement in his overall symptoms. Patient was eventually taken off BiPAP as he was not tolerating it well. The patient states that he was feeling improved. I did speak with the on-call hospitalist JACKSON Kent and the patient was admitted by Dr. Kinney. Critical Care: I have personally spent 37 minutes of critical care time in direct management of this patient. This includes bedside care, interpretation of diagnostic studies, and testing, discussion with consultants, patient, and family members, and other require inpatient management activities. This 37 minutes is in excess of all separately billable procedures. Past Med/Surg History Medical History A-fib Anxiety and depression BPH (benign prostatic hyperplasia) Chronic kidney disease STAGE 3 COPD (chronic obstructive pulmonary disease) Degenerative disc disease Emphysema of lung Glaucoma History of restless legs syndrome Hx of gastric ulcer Hypertension Leaky heart valve FOLLOWS DR. Layne ([facility]) On home oxygen therapy 4-5L NC O2 CONT. Pernicious anemia HX OF Poor circulation "IN FINGERS" PER DAUGHTER Rheumatoid arthritis Sciatica Surgical History H/O eye surgery LASER FOR GLAUCOMA History of colonoscopy History of esophagogastroduodenoscopy (EGD) History of herniorrhaphy History of kyphoplasty History of lumbar laminectomy History of nasal septoplasty History of tonsillectomy and adenoidectomy History of tooth extraction Family History Other Family history non-contributory No family history of adverse response to anesthesia Denies family history of Kidney disease Social History Smoking Status: Former smoker Second Hand Exposure: Yes (IN THE PAST); Hx Alcohol Use: Yes Alcohol type: hard liquor Hx Substance Use: No Preferred Language: Arabic Communication Ability: Effective Oncology Social Worker Required: No Beliefs That Will Affect Care: None Current Living Situation: Family Current Living Situation Comment: Moved from [facility] to live w/ daughter 07/01 current occupational status: 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 Feels Safe at Home: Yes Assistive Devices: Oxygen - Continuous Allergies Allergies Allergy/AdvReac Type Severity Reaction Status Date / Time No Known Allergies Allergy Verified 02/02/22 19:12 Home Meds Home Medications Medication Instructions Recorded Confirmed calcium carbonate 500 mg-vitamin 1 tab PO QAM 01/16/21 02/02/22 D3 5 mcg (200 unit) tablet (Calcium 500 + D) furosemide 20 mg tablet 20 mg PO QAM 01/16/21 02/02/22 hydroxychloroquine 200 mg tablet 200 mg PO QAM 01/16/21 02/02/22 hydroxyzine HCl 10 mg tablet 10 mg PO BID PRN 01/16/21 02/02/22 metoprolol succinate 100 mg 100 mg PO HS 01/16/21 02/02/22 tablet,extended release 24 hr mometasone 1 inh INHALATION PM 01/16/21 02/02/22 oxycodone-acetaminophen 5 mg-325 1 tab PO QID PRN 01/16/21 02/02/22 mg tablet (Percocet) pantoprazole 40 mg tablet,delayed 40 mg PO QAM 01/16/21 02/02/22 release prednisone 5 mg tablet 5 mg PO QAM 01/16/21 02/02/22 tamsulosin 0.4 mg capsule 0.4 mg PO HS 01/16/21 02/02/22 multivitamin 1 tab PO QAM 03/15/21 02/02/22 tiotropium 2.5 mcg-olodaterol 2.5 2 puff INHALATION DAILY 03/15/21 02/02/22 mcg/actuation mist for inhalation (Stiolto Respimat) azithromycin 250 mg tablet 250 mg PO 3XWK 05/09/21 02/02/22 cyanocobalamin (vitamin B-12) 1,000 mcg PO QAM 05/09/21 02/02/22 1,000 mcg capsule naloxone 4 mg/actuation nasal 4 mg INTRANASAL UD PRN 05/09/21 02/02/22 spray (Narcan) nitroglycerin 0.4 mg sublingual 0.4 mg SUBLINGUAL UD PRN 05/09/21 02/02/22 tablet magnesium oxide 420 mg tablet 420 mg PO QAM 09/11/21 02/02/22 olodaterol 2.5 mcg/actuation mist 2.5 mcg INHALATION DAILY PRN 02/02/22 02/02/22 for inhalation Results & Data (ED) Vital Signs Vital Signs - 24 hr 02/02/22 18:34 02/02/22 19:32 02/02/22 19:44 Temperature 37.9 C H Temperature Source Oral Pulse Rate 106 H 95 H 98 H Pulse Rate [Apical] 96 H Pulse Rhythm Regular Regular Pulse Rhythm [Apical] Regular Pulse Strength Normal Pulse Strength [Apical] Normal Respiratory Rate 20 22 16 Respiratory Effort / Characteristics Non-Labored Spontaneous Non-Labored Spontaneous Non-Labored Spontaneous Respiratory Depth Normal Normal Normal Respiratory Pattern Regular Regular Regular Blood Pressure 128/68 Blood Pressure [Right Arm] 146/87 H Blood Pressure Mean 88 Blood Pressure Mean [Right Arm] 106 Blood Pressure Position Sitting Blood Pressure Position [Right Arm] Lying Pulse Oximetry 95 100 100 Oxygen Delivery Method Nasal Cannula BiPAP Oxygen Flow Rate 5 Fraction of Inspired Oxygen 50 Sepsis Recent Fever Within 48 Hours No Sepsis New/Unexplained Change in Mental Status No Sepsis Action Taken by Nursing No Action Required 02/02/22 20:03 02/02/22 21:00 02/02/22 22:00 Temperature 37.2 C Temperature Source Oral Pulse Rate Pulse Rate [Apical] 92 H 105 H Pulse Rhythm Pulse Rhythm [Apical] Regular Pulse Strength Pulse Strength [Apical] Normal Respiratory Rate 16 20 Respiratory Effort / Characteristics Non-Labored Spontaneous Non-Labored Spontaneous Respiratory Depth Normal Respiratory Pattern Regular Blood Pressure Blood Pressure [Right Arm] 125/77 Blood Pressure Mean Blood Pressure Mean [Right Arm] 93 Blood Pressure Position Blood Pressure Position [Right Arm] Lying Pulse Oximetry 94 100 Oxygen Delivery Method BiPAP BiPAP Oxygen Flow Rate Fraction of Inspired Oxygen Sepsis Recent Fever Within 48 Hours Sepsis New/Unexplained Change in Mental Status Sepsis Action Taken by Long Term Medications Current Medication List: was personally reviewed by me Laboratory Data Attestation: I reviewed the patient's lab results. Result diagrams: 02/02/22 19:20 02/02/22 19:20 Lab Results 02/02/22 02/02/22 02/02/22 Range/Units 19:20 19:20 19:20 WBC 3.97 L (4.8-10.8) K/uL RBC 3.86 L (4.7-6.1) M/uL Hgb 12.3 L (14.0-18.0) g/dL Hct 37.3 L (42-52) % MCV 96.6 (80-100) fL MCH 31.9 (25-34) pg MCHC 33.0 (32-36) g/dL RDW Std Deviation 48.5 H (36.4-46.3) fL RDW Coeff of Nithya 13.7 (11.5-14.5) % Plt Count 127 L (130-400) K/uL MPV 10.4 (7.4-10.4) fL Immature Gran % (Auto) 0.3 % Neut % (Auto) 79.5 % Lymph % (Auto) 7.6 % [place] % (Auto) 11.8 % Eos % (Auto) 0.3 % Baso % (Auto) 0.5 % Neut # (Auto) 3.16 (1.4-6.5) K/uL Lymph # (Auto) 0.30 L (1.2-3.4) K/uL [place] # (Auto) 0.47 (0.11-0.59) K/uL Eos # (Auto) 0.01 (0-0.5) K/uL Baso # (Auto) 0.02 (0-0.2) K/uL Immature Gran # (Auto) 0.01 (0.00-0.02) K/uL VBG pH VBG pCO2 VBG pO2 VBG HCO3 VBG O2 Saturation VBG Base Excess Barometric Pressure Sodium 135 L (136-145) mmol/L Potassium 4.0 (3.5-5.1) mmol/L Chloride 97 L (98-107) mmol/L Carbon Dioxide 28 (21-32) mmol/L Anion Gap 10 (3-11) BUN 28 H (6-23) mg/dl Creatinine 1.28 (0.6-1.4) mg/dl Est Cr Clr Drug Dosing Not Reportable Est GFR ( Amer) 61.3 ml/min Est GFR (Non-Af Amer) 52.9 ml/min BUN/Creatinine Ratio 21.9 H (10-20) Glucose 84 (70-99(Fasting)) mg/dl Lactate 1.7 (0.4-2.0) mmol/L Calcium 9.1 (8.5-10.1) mg/dl Total Bilirubin 0.7 (0.2-1.0) mg/dl AST 28 (13-39) U/L ALT 18 (7-52) U/L Alkaline Phosphatase 38 (34-104) U/L Troponin I High Sens 17.5 (0-20) pg/ml B-Natriuretic Peptide (0-100) pg/ml Total Protein 6.6 (6.0-8.3) gm/dl Albumin 4.1 (3.4-5.0) gm/dl Globulin 2.5 (2.5-4.0) gm/dl Albumin/Globulin Ratio 1.6 (0.9-2) Lipase 11 (11-82) U/L Procalcitonin (0-0.5) ng/ml Nasal Screen MRSA (PCR) (Negative) SARS-CoV-2 (PCR) (Negative) Influenza Type A (PCR) (Neg) Influenza Type B (PCR) (Neg) RSV (RT-PCR) (Neg) 02/02/22 02/02/22 02/02/22 Range/Units 19:20 19:20 19:20 WBC (4.8-10.8) K/uL RBC (4.7-6.1) M/uL Hgb (14.0-18.0) g/dL Hct (42-52) % MCV (80-100) fL MCH (25-34) pg MCHC (32-36) g/dL RDW Std Deviation (36.4-46.3) fL RDW Coeff of Nithya (11.5-14.5) % Plt Count (130-400) K/uL MPV (7.4-10.4) fL Immature Gran % (Auto) % Neut % (Auto) % Lymph % (Auto) % [place] % (Auto) % Eos % (Auto) % Baso % (Auto) % Neut # (Auto) (1.4-6.5) K/uL Lymph # (Auto) (1.2-3.4) K/uL [place] # (Auto) (0.11-0.59) K/uL Eos # (Auto) (0-0.5) K/uL Baso # (Auto) (0-0.2) K/uL Immature Gran # (Auto) (0.00-0.02) K/uL VBG pH Cancelled VBG pCO2 Cancelled VBG pO2 Cancelled VBG HCO3 Cancelled VBG O2 Saturation Cancelled VBG Base Excess Cancelled Barometric Pressure Cancelled Sodium (136-145) mmol/L Potassium (3.5-5.1) mmol/L Chloride (98-107) mmol/L Carbon Dioxide (21-32) mmol/L Anion Gap (3-11) BUN (6-23) mg/dl Creatinine (0.6-1.4) mg/dl Est Cr Clr Drug Dosing Est GFR ( Amer) ml/min Est GFR (Non-Af Amer) ml/min BUN/Creatinine Ratio (10-20) Glucose (70-99(Fasting)) mg/dl Lactate (0.4-2.0) mmol/L Calcium (8.5-10.1) mg/dl Total Bilirubin (0.2-1.0) mg/dl AST (13-39) U/L ALT (7-52) U/L Alkaline Phosphatase (34-104) U/L Troponin I High Sens (0-20) pg/ml B-Natriuretic Peptide 793 H (0-100) pg/ml Total Protein (6.0-8.3) gm/dl Albumin (3.4-5.0) gm/dl Globulin (2.5-4.0) gm/dl Albumin/Globulin Ratio (0.9-2) Lipase (11-82) U/L Procalcitonin 0.17 (0-0.5) ng/ml Nasal Screen MRSA (PCR) (Negative) SARS-CoV-2 (PCR) (Negative) Influenza Type A (PCR) (Neg) Influenza Type B (PCR) (Neg) RSV (RT-PCR) (Neg) 02/02/22 02/02/22 02/02/22 Range/Units 19:20 19:35 20:03 WBC (4.8-10.8) K/uL RBC (4.7-6.1) M/uL Hgb (14.0-18.0) g/dL Hct (42-52) % MCV (80-100) fL MCH (25-34) pg MCHC (32-36) g/dL RDW Std Deviation (36.4-46.3) fL RDW Coeff of Nithya (11.5-14.5) % Plt Count (130-400) K/uL MPV (7.4-10.4) fL Immature Gran % (Auto) % Neut % (Auto) % Lymph % (Auto) % [place] % (Auto) % Eos % (Auto) % Baso % (Auto) % Neut # (Auto) (1.4-6.5) K/uL Lymph # (Auto) (1.2-3.4) K/uL [place] # (Auto) (0.11-0.59) K/uL Eos # (Auto) (0-0.5) K/uL Baso # (Auto) (0-0.2) K/uL Immature Gran # (Auto) (0.00-0.02) K/uL VBG pH 7.37 VBG pCO2 52 H VBG pO2 22 VBG HCO3 30 VBG O2 Saturation < 60.0 VBG Base Excess 3.4 Barometric Pressure 732.6 Sodium (136-145) mmol/L Potassium (3.5-5.1) mmol/L Chloride (98-107) mmol/L Carbon Dioxide (21-32) mmol/L Anion Gap (3-11) BUN (6-23) mg/dl Creatinine (0.6-1.4) mg/dl Est Cr Clr Drug Dosing Est GFR ( Amer) ml/min Est GFR (Non-Af Amer) ml/min BUN/Creatinine Ratio (10-20) Glucose (70-99(Fasting)) mg/dl Lactate (0.4-2.0) mmol/L Calcium (8.5-10.1) mg/dl Total Bilirubin (0.2-1.0) mg/dl AST (13-39) U/L ALT (7-52) U/L Alkaline Phosphatase (34-104) U/L Troponin I High Sens (0-20) pg/ml B-Natriuretic Peptide (0-100) pg/ml Total Protein (6.0-8.3) gm/dl Albumin (3.4-5.0) gm/dl Globulin (2.5-4.0) gm/dl Albumin/Globulin Ratio (0.9-2) Lipase (11-82) U/L Procalcitonin (0-0.5) ng/ml Nasal Screen MRSA (PCR) Negative (Negative) SARS-CoV-2 (PCR) NEGATIVE (Negative) Influenza Type A (PCR) Negative (Neg) Influenza Type B (PCR) Negative (Neg) RSV (RT-PCR) Negative (Neg) Administered Medications Discontinued Medications Albuterol (Albut/Ipratrop 3mg/0.5mg Neb 3 Ml Vial) 12 ml INH ONE STA Stop: 02/02/22 18:47 Last Admin: 02/02/22 20:01 Dose: 12 ml Documented by: [id number] Fentanyl Citrate (Fentanyl Citrate 100 Mcg/2 Ml Vial) 25 mcg IV NOW STA Stop: 02/02/22 20:35 Last Admin: 02/02/22 20:40 Dose: 25 mcg Documented by: [id number] Sodium Chloride (Nss 1000ml) 1,000 mls @ 999 mls/hr IV .Q1H1M STA Stop: 02/02/22 19:46 Last Infusion: 02/02/22 20:58 Dose: 0 mls/hr Documented by: [id number] Admin: 02/02/22 19:45 Dose: 999 mls/hr Documented by: [id number] Piperacillin Sod/Tazobactam Sod (Zosyn) 4.5 gm in 120 mls @ 240 mls/hr IV NOW ONE Stop: 02/02/22 19:15 Last Infusion: 02/02/22 20:57 Dose: 0 mls/hr Documented by: [id number] Admin: 02/02/22 20:10 Dose: 240 mls/hr Documented by: [id number] Acetaminophen (Ofirmev) 1,000 mg in 100 mls @ 400 mls/hr IV NOW STA Stop: 02/02/22 19:04 Last Infusion: 02/02/22 20:29 Dose: 0 mls/hr Documented by: [id number] Admin: 02/02/22 19:45 Dose: 400 mls/hr Documented by: [id number] Methylprednisolone (Methylprednisolone 125 Mg/2 Ml Vial) 125 mg IV NOW STA Stop: 02/02/22 18:47 Last Admin: 02/02/22 19:45 Dose: 125 mg Documented by: [id number] Imaging Data Radiologist's Impression: Chest X-Ray 02/02/22 18:47 XR chest 1V portable CLINICAL HISTORY: SOB, decreased air movement b/l COMPARISON STUDY: Chest radiograph and chest CT January 16, 2021. FINDINGS: There is no pneumothorax or pleural effusion. Mild cardiomegaly is unchanged. No evidence for pulmonary edema. No consolidation to suggest pneumonia. Multiple old right rib fractures are present. There is emphysema. Multilevel vertebroplasties within the thoracic are present. IMPRESSION: No acute cardiopulmonary findings. No change in appearance of the chest. ACT 112: Negative or not required by law. Electronically signed by: Duglas Villafuerte M.D. 02/02/2022 7:18 PM Discharge Plan Visit Data Chief Complaint: Vomiting Stated Complaint: VOMITING, FEVER, CHEST DISCOMFORT ED Provider: Ian Alanis Discharge Problem: Hypoxemia, Abdominal pain, Acute dyspnea, Nausea & vomiting, Closed L1 vertebra l fracture Discharge Problem: Abdominal pain Qualifiers: Abdominal location: epigastric Qualified Code(s): R10.13 - Epigastric pain Nausea & vomiting Qualifiers: Vomiting type: unspecified Qualified Code(s): R11.2 - Nausea with vomiting, unspecified Closed L1 vertebral fracture Qualifiers: Encounter type: initial encounter Fracture morphology: unspecified fracture morphology Qualified Code(s): S32.019A - Unspecified fracture of first lumbar vertebra, initial encounter for closed fracture
[2022-02-02] MEDS ORDERED: methylPREDNISolone 125 MG/2 ML VIAL IV STA (18:46)
[2022-02-02] MEDS ORDERED: PIPERACILLIN/TAZOBACTAM 4.5 GM/120 ML BAG IV ONE (18:46)
[2022-02-02] MEDS ORDERED: ALBUT/IPRATROP 3MG/0.5MG NEB 3 ML VIAL INH STA (18:46)
[2022-02-02] MEDS ORDERED: PIPERACILL/TAZOBAC CONSULT ACTIVE PRN (18:46)
[2022-02-02] MEDS ORDERED: SODIUM CHLORIDE 0.9% 1000ML 1,000 ML IV STA (18:46)
[2022-02-02] MEDS ORDERED: ACETAMINOPHEN 1,000 MG/100 ML VIAL IV STA (18:50)
--- NOTE | 2022-02-02 19:21 | XRay Report ---
XR chest 1V portable CLINICAL HISTORY: SOB, decreased air movement b/l COMPARISON STUDY: Chest radiograph and chest CT January 16, 2021. FINDINGS: There is no pneumothorax or pleural effusion. Mild cardiomegaly is unchanged. No evidence f or pulmonary edema. No consolidation to suggest pneumonia. Multiple old right rib fractures are prese nt. There is emphysema. Multilevel vertebroplasties within the thoracic are present. IMPRESSION: No acute cardiopulmonary findings. No change in appearance of the chest. ACT 112: Negative or not required by law. Electronically signed by: Duglas Villafuerte M.D. 02/02/2022 7:18 PM
[2022-02-02 19:38] LABS: Basophils # (auto) 0.02 K/uL (0-0.2); Basophils % (auto) 0.5 %; Eosinophils # (auto) 0.01 K/uL (0-0.5); Eosinophils % (auto) 0.3 %; Hematocrit (blood only) 37.3 % (42-52); Hemoglobin 12.3 g/dL (14.0-18.0); Immature Granulocytes # (auto) 0.01 K/uL (0.00-0.02); Immature Granulocytes % (auto) 0.3 %; Lymphocytes % (auto) 7.6 %; Mean Corpuscular Hemoglobin 31.9 pg (25-34); Mean Corpuscular Volume 96.6 fL (80-100); Mean Platelet Volume 10.4 fL (7.4-10.4); Monocytes # (auto) 0.47 K/uL (0.11-0.59); Monocytes % (auto) 11.8 %; Neutrophils # (auto) 3.16 K/uL (1.4-6.5); Neutrophils % (auto) 79.5 %; Platelet Count 127 K/uL (130-400); RDW Coefficient of Variation 13.7 % (11.5-14.5); RDW Standard Deviation 48.5 fL (36.4-46.3); Red Blood Count 3.86 M/uL (4.7-6.1); White Blood Count 3.97 K/uL (4.8-10.8)
[2022-02-02 20:16] LABS: Base Excess VBG 3.4 mEq/L; HCO3 VBG 30 mmol/L; PCO2 VBG 52 mmHg (38-50); PO2 VBG 22 mmHg; pH VBG 7.37 (7.36-7.41)
[2022-02-02 20:18] LABS: Oxygen Saturation VBG < 60.0 %
[2022-02-02] MEDS ORDERED: fentaNYL citrate 100 MCG/2 ML VIAL IV STA (20:34)
[2022-02-02 20:37] LABS: Alanine Aminotransferase 18 U/L (7-52); Albumin Globulin Ratio 1.6 (0.9-2); Albumin Level 4.1 gm/dl (3.4-5.0); Alkaline Phosphatase 38 U/L (34-104); Anion Gap 10 (3-11); Aspartate Aminotransferase 28 U/L (13-39); BUN Creatinine Ratio 21.9 (10-20); Bilirubin,Total 0.7 mg/dl (0.2-1.0); Blood Urea Nitrogen 28 mg/dl (6-23); Calcium 9.1 mg/dl (8.5-10.1); Carbon Dioxide 28 mmol/L (21-32); Chloride 97 mmol/L (98-107); Est GFR (African American) 61.3 ml/min; Est GFR (Non-African American) 52.9 ml/min; Globulin 2.5 gm/dl (2.5-4.0); Glucose 84 mg/dl (70-99(Fasting)); Lipase 11 U/L (11-82); Sodium 135 mmol/L (136-145); Total Protein 6.6 gm/dl (6.0-8.3); Troponin I High Sensitivity 17.5 pg/ml (0-20)
[2022-02-02 21:06] LABS: Influenza A virus by PCR Negative (Neg); Influenza B virus by PCR Negative (Neg); RSV by PCR Negative (Neg); SARS CoV2 RNA(COVID-19) InHosp NEGATIVE (Negative)
--- NOTE | 2022-02-02 22:24 | History & Physical Report ---
Date of Service February 02, 2022 Assessment & Plan (1) Aspiration pneumonitis: Plan: With patient presentation and history prior to feeling dyspneic is consistent with aspiration pneumonitis - Will hold on further antibiotics as PCT is normal - oxygen requirement back to baseline and no opacities on CXR - Continue with nebulizers- will add flutter valve - Short course of biPAP likely related to atelectasis from shallow breathing - Follow CBC and fever curve overnight (2) COPD (chronic obstructive pulmonary disease): Plan: End-stage COPD on home oxygen - [facility] - Albuterol added-- not on home rec - Continue Respimat - Continue Spiriva - Azithromycin 250mg PO 3X week (3) CHF (congestive heart failure): Plan: HFrEF [facility] - Continue Metoprolol 100mg PO nightly- dose now - ECHO review from cardiology note 12/30 - notes EF 35% - Continue diuretic therapy - Not on DENVER/ARB as by report could not tolerate lisnipril and possibly to add Cozaar- defer to primary machine installer/PCP (4) Chronic kidney disease: Plan: Stable no acute needs - follow volume status (5) Compression fracture: Plan: L1 stable appearing compression fracture interpreted - Likely osteopenic fracture - Pain controlled and has not caused him any increase but he does note pain there - If pain uncontrolled or changes can consider calcitonin nasal spray for such - PT/OT consultation placed (6) Chronic lumbar pain: Plan: With chronic narcotic PRN - continue as needed (7) A-fib: Plan: History of - not in Afib currently- he also endorses that he has never been on anticoagulation - follow - ECG pending on admission - Keep K ~4.0 and Mag ~ 2.0 (8) BPH (benign prostatic hyperplasia): Plan: Continue with Flomax - patient voided without difficulty - bladder scan prn retention (9) Rheumatoid arthritis: Plan: Continue with prednisone and Hydrochloroquine History of Present Illness Primary Care Provider: Paulette Johnson PA-C 81 YOM with medical history of: COPD (emphysema on 5L home oxygen therapy), diverticulosis, multiple back surgeries- laminectomy and kyphoplasty, DJD, afib, aortic stenosis, anxiety, insomnia, CKD III, GERD, BPH, Osteopetrosis, RA (hydrochloroquine) normally follows at the NH. Patient came to the EMD today secondary to increase in dyspnea, this started yesterday evening. Patient reports having stir-short yesterday that was cooked at home- then about 1 hour after eating he started to feel achy, tired, and having some abdominal discomfort followed by nausea. This progressed to vomiting x2 about 1.5-2 hours after eating. It was after this that he noted himself to start feeling a bit more dyspneic and increased his oxygen at home - he normally wears between 3-5 liters- he took it to 5. Today his abdomen felt better, but was noted by his daughter to have temperature of 101 and remained with feeling fatigued and dyspneic. He also reports 1 episode of diarrhea. In the EMD he was noted to be tachypneic and increased work of breathing, he was put on BiPAP for two hours, and then was titrated back down to his normal home oxygen level. He had a CXR done, routine labs, CT scan of his abdomen and pelvis performed. CXR was noted to have no acute process, abdomen and CT scan noting a L1 compression fracture and no other acute pathology. Bladder is distended. His lab work reveals mild leukopenia, PCT is negative, he was given a dose of Zosyn by EMD. For his compression fracture, the patient does not remember falling but this lower back pain started about 2 months ago, he normally has chronic SI joint pain. He endorses no known trauma, falls, or jolts to his back for the fracture and this is likely related to his osteopenia, chronic steroid use as well as his bouts of coughing. Will keep patient overnight for likely an aspiration pneumonitis, PT/OT evaluation and follow labs in morning ensuring no infectious process. Urine is pending. COVID and Influenza are: NEGATIVE Allergies Allergy/AdvReac Type Severity Reaction Status Date / Time No Known Allergies Allergy Verified 02/02/22 19:12 Home Medications Medication Instructions Recorded Confirmed Type calcium carbonate 500 mg-vitamin 1 tab PO QAM 01/16/21 02/02/22 History D3 5 mcg (200 unit) tablet (Calcium 500 + D) furosemide 20 mg tablet 20 mg PO QAM 01/16/21 02/02/22 History hydroxychloroquine 200 mg tablet 200 mg PO QAM 01/16/21 02/02/22 History hydroxyzine HCl 10 mg tablet 10 mg PO BID PRN 01/16/21 02/02/22 History metoprolol succinate 100 mg 100 mg PO HS 01/16/21 02/02/22 History tablet,extended release 24 hr mometasone 1 inh INHALATION PM 01/16/21 02/02/22 History oxycodone-acetaminophen 5 mg-325 1 tab PO QID PRN 01/16/21 02/02/22 History mg tablet (Percocet) pantoprazole 40 mg tablet,delayed 40 mg PO QAM 01/16/21 02/02/22 History release prednisone 5 mg tablet 5 mg PO QAM 01/16/21 02/02/22 History tamsulosin 0.4 mg capsule 0.4 mg PO HS 01/16/21 02/02/22 History multivitamin 1 tab PO QAM 03/15/21 02/02/22 History tiotropium 2.5 mcg-olodaterol 2.5 2 puff INHALATION DAILY 03/15/21 02/02/22 His tory mcg/actuation mist for inhalation (Stiolto Respimat) azithromycin 250 mg tablet 250 mg PO 3XWK 05/09/21 02/02/22 History cyanocobalamin (vitamin B-12) 1,000 mcg PO QAM 05/09/21 02/02/22 History 1,000 mcg capsule naloxone 4 mg/actuation nasal 4 mg INTRANASAL UD PRN 05/09/21 02/02/22 History spray (Narcan) nitroglycerin 0.4 mg sublingual 0.4 mg SUBLINGUAL UD PRN 05/09/21 02/02/22 History tablet magnesium oxide 420 mg tablet 420 mg PO QAM 09/11/21 02/02/22 History olodaterol 2.5 mcg/actuation mist 2.5 mcg INHALATION DAILY PRN 02/02/22 02/02/22 History for inhalation Past Med/Surg History Medical History A-fib Anxiety and depression BPH (benign prostatic hyperplasia) Chronic kidney disease STAGE 3 COPD (chronic obstructive pulmonary disease) Degenerative disc disease Emphysema of lung Glaucoma History of restless legs syndrome Hx of gastric ulcer Hypertension Leaky heart valve FOLLOWS DR. Layne ([facility]) On home oxygen therapy 4-5L [place] O2 CONT. Pernicious anemia HX OF Poor circulation "IN FINGERS" PER DAUGHTER Rheumatoid arthritis Sciatica Surgical History H/O eye surgery LASER FOR GLAUCOMA History of colonoscopy History of esophagogastroduodenoscopy (EGD) History of herniorrhaphy History of kyphoplasty History of lumbar laminectomy History of nasal septoplasty History of tonsillectomy and adenoidectomy History of tooth extraction Family History Other Family history non-contributory No family history of adverse response to anesthesia Denies family history of Kidney disease Social History Smoking Status: Former smoker Second Hand Exposure: Yes (IN THE PAST); Hx Alcohol Use: Yes Alcohol type: hard liquor Hx Substance Use: No Preferred Language: [place] Communication Ability: Effective Steel Rigger Required: No Beliefs That Will Affect Care: None Current Living Situation: Family Current Living Situation Comment: Moved from [facility] to live w/ daughter 07/01 current occupational status: retired 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 Feels Safe at Home: Yes Assistive Devices: Oxygen - Continuous Review of Systems Review of Systems: REVIEW OF SYSTEMS: Constitutional: (+) fever, sweats or chills- resolved Eyes: No diplopia, no worsening or blurred vision ENT: normal hearing, no trouble swallowing Respiratory: (+) cough, sputum, dyspnea at rest or on exertion Cardiovascular: No chest pain, tightness or palpitations Abdomen: No pain, nausea, vomiting, diarrhea or constipation Musculoskeletal: (+) chronic back pain, calf pain, swelling Neurologic: No weakness, numbness/tingling, or balance problems Psychiatric: No anxiety or depression Skin: No rash or itch Physical Exam Physical Exam: PHYSICAL EXAM: General: awake, alert, no apparent distress Head: Normocephalic, atraumatic ENT: PERRL, EOMI, no pharyngeal exudate, mucous membranes moist Neuro: AAO x 3, speech clear and appropriate, strength intact bilaterally 5/5, sensation intact and equal all extremities and dermatomes, no pronator drift Chest: equal rise and fall of the chest, no accessory muscle use, no heaves or thirlls, Clear to auscultation, on room air, Cardiac: Regular rate and rhythm, telemetry reviewed- sinus tach, skin warm dry, cap refill <3 seconds, peripheral pulses +2 no JVD, systolic murmur, no edema GI: NABS x 4 quadrants, soft, nontender to palpation, no rebound, guarding or tenderness, bladder distended : Unable to void at bedside, no pain, no CVA tenderness, Extremities: Normal inspection, no peripheral edema or erythema, calfs nontender to palpation Psych: Normal mood and affect Skin: no rash or erythema Results & Data Results & Data ([facility]) Vital Signs (Past 12 Hours) Vital Signs Temp Pulse Pulse Resp BP BP Pulse Ox 02/02/22 21:00 105 H 20 125/77 100 02/02/22 20:03 92 H 16 94 02/02/22 19:44 98 H 16 100 02/02/22 19:32 95 H 96 H 22 146/87 H 100 02/02/22 18:34 37.9 C H 106 H 20 128/68 95 Laboratory Results Abnormal lab results 02/02/22 02/02/22 02/02/22 Range/Units 19:20 19:20 19:20 WBC 3.97 L (4.8-10.8) K/uL RBC 3.86 L (4.7-6.1) M/uL Hgb 12.3 L (14.0-18.0) g/dL Hct 37.3 L (42-52) % RDW Std Deviation 48.5 H (36.4-46.3) fL Plt Count 127 L (130-400) K/uL Lymph # (Auto) 0.30 L (1.2-3.4) K/uL VBG pCO2 (38-50) mmHg Sodium 135 L (136-145) mmol/L Chloride 97 L (98-107) mmol/L BUN 28 H (6-23) mg/dl BUN/Creatinine Ratio 21.9 H (10-20) B-Natriuretic Peptide 793 H (0-100) pg/ml 02/02/22 Range/Units 20:03 WBC (4.8-10.8) K/uL RBC (4.7-6.1) M/uL Hgb (14.0-18.0) g/dL Hct (42-52) % RDW Std Deviation (36.4-46.3) fL Plt Count (130-400) K/uL Lymph # (Auto) (1.2-3.4) K/uL VBG pCO2 52 H (38-50) mmHg Sodium (136-145) mmol/L Chloride (98-107) mmol/L BUN (6-23) mg/dl BUN/Creatinine Ratio (10-20) B-Natriuretic Peptide (0-100) pg/ml Diagnostic Findings Chest X-Ray 02/02/22 18:47 XR chest 1V portable CLINICAL HISTORY: SOB, decreased air movement b/l COMPARISON STUDY: Chest radiograph and chest CT January 16, 2021. FINDINGS: There is no pneumothorax or pleural effusion. Mild cardiomegaly is unchanged. No evidence for pulmonary edema. No consolidation to suggest pneumonia. Multiple old right rib fractures are present. There is emphysema. Multilevel vertebroplasties within the thoracic are present. IMPRESSION: No acute cardiopulmonary findings. No change in appearance of the chest. ACT 112: Negative or not required by law. Electronically signed by: Duglas Villafuerte M.D. 02/02/2022 7:18 PM Medications Administered Home Medications calcium carbonate 500 mg-vitamin D3 5 mcg (200 unit) tablet (Calcium 500 + D) 1 tab PO QAM 01/16/21 [History Confirmed 02/02/22] furosemide 20 mg tablet 20 mg PO QAM 01/16/21 [History Confirmed 02/02/22] hydroxychloroquine 200 mg tablet 200 mg PO QAM 01/16/21 [History Confirmed 02/02/22] hydroxyzine HCl 10 mg tablet 10 mg PO BID PRN 01/16/21 [History Confirmed 02/02/22] metoprolol succinate 100 mg tablet,extended release 24 hr 100 mg PO HS 01/16/21 [History Confirmed 02/02/22] mometasone 1 inh INHALATION PM 01/16/21 [History Confirmed 02/02/22] oxycodone-acetaminophen 5 mg-325 mg tablet (Percocet) 1 tab PO QID PRN 01/16/21 [History Confirmed 02/02/22] pantoprazole 40 mg tablet,delayed release 40 mg PO QAM 01/16/21 [History Confirmed 02/02/22] prednisone 5 mg tablet 5 mg PO QAM 01/16/21 [History Confirmed 02/02/22] tamsulosin 0.4 mg capsule 0.4 mg PO HS 01/16/21 [History Confirmed 02/02/22] multivitamin 1 tab PO QAM 03/15/21 [History Confirmed 02/02/22] tiotropium 2.5 mcg-olodaterol 2.5 mcg/actuation mist for inhalation (Stiolto Respimat) 2 puff INHALATION DAILY 03/15/21 [History Confirmed 02/02/22] azithromycin 250 mg tablet 250 mg PO 3XWK 05/09/21 [History Confirmed 02/02/22] cyanocobalamin (vitamin B-12) 1,000 mcg capsule 1,000 mcg PO QAM 05/09/21 [History Confirmed 02/02/22] naloxone 4 mg/actuation nasal spray (Narcan) 4 mg INTRANASAL UD PRN 05/09/21 [History Confirmed 02/02/22] nitroglycerin 0.4 mg sublingual tablet 0.4 mg SUBLINGUAL UD PRN 05/09/21 [History Confirmed 02/02/22] magnesium oxide 420 mg tablet 420 mg PO QAM 09/11/21 [History Confirmed 02/02/22] olodaterol 2.5 mcg/actuation mist for inhalation 2.5 mcg INHALATION DAILY PRN 02/02/22 [History Confirmed 02/02/22] Active Medications Miscellaneous Information (Piperacill/Tazobac Consult Active) 1 ea N/A UD PRN PRN Reason: Consult Stop: 03/04/22 18:45 Discontinued Medications Albuterol (Albut/Ipratrop 3mg/0.5mg Neb 3 Ml Vial) 12 ml INH ONE STA Stop: 02/02/22 18:47 Last Admin: 02/02/22 20:01 Dose: 12 ml Documented by: [id number] Fentanyl Citrate (Fentanyl Citrate 100 Mcg/2 Ml Vial) 25 mcg IV NOW STA Stop: 02/02/22 20:35 Last Admin: 02/02/22 20:40 Dose: 25 mcg Documented by: [id number] Sodium Chloride (Nss 1000ml) 1,000 mls @ 999 mls/hr IV .Q1H1M STA Stop: 02/02/22 19:46 Last Infusion: 02/02/22 20:58 Dose: 0 mls/hr Documented by: [id number] Admin: 02/02/22 19:45 Dose: 999 mls/hr Documented by: [id number] Piperacillin Sod/Tazobactam Sod (Zosyn) 4.5 gm in 120 mls @ 240 mls/hr IV NOW ONE Stop: 02/02/22 19:15 Last Infusion: 02/02/22 20:57 Dose: 0 mls/hr Documented by: [id number] Admin: 02/02/22 20:10 Dose: 240 mls/hr Documented by: [id number] Acetaminophen (Ofirmev) 1,000 mg in 100 mls @ 400 mls/hr IV NOW STA Stop: 02/02/22 19:04 Last Infusion: 02/02/22 20:29 Dose: 0 mls/hr Documented by: [id number] Admin: 02/02/22 19:45 Dose: 400 mls/hr Documented by: [id number] Methylprednisolone (Methylprednisolone 125 Mg/2 Ml Vial) 125 mg IV NOW STA Stop: 02/02/22 18:47 Last Admin: 02/02/22 19:45 Dose: 125 mg Documented by: [id number] ECG Additional Comments: Pending on admission Code Status & VTE Plan Code Status CODE: DNR/DNI VTE: SCDS, Heparin 5000 units subq q12 VTE Prophylaxis Plan VTE Prophylaxis will be ordered: Yes Supervising Physician Co-Signing Physician Notes Patient seen and examined, chart reviewed, case discussed with JACKSON Rodriguez and I agree with assessment and plan as documented above. In brief, patient is a 81-year-old male with history of COPD on 5 L home oxygen, chronic back pain with history of multiple back surgeries presenting with shortness of breath that started yesterday evening. Patient had an episode of fatigue, aches and abdominal pain followed by nausea after eating stirfry yesterday. He vomited twice and subsequently had worsening dyspnea. Patient transiently placed on BiPAP in the ER then placed back on home level of oxygen On exam he is afebrile, hemodynamically stable, nontoxic in appearance. Awake alert and answering questions appropriately Skinwarm, dry, intact, no rashes or lesions HEENTnormocephalic/atraumatic, pupils equal round and reactive to light, moist mucous membranes, neck supple Heart+ S1, S2, regular, no murmurs/rubs/gallops Lungsno rales/rhonchi/wheezes Abdomenpositive bowel sounds, soft, nontender, nondistended Extremitieswarm, well-perfused, no clubbing/cyanosis/edema Labs and images reviewed. Assessment/Plan -Monitor O2 requirement - may need antibiotics -Continue home COPD management -Monitor UOP -Pain management of L1 fracture -Remainder as above PG Care Time/CCT Total # of Minutes Spent Total Time Spent with Patient: Total time spent is greater than 50% in coordination of care (as documented) at patient's floor/unit and/or counseling patient: Coding Level of Care Code 34860 Initial Inpt Care Lvl 2 Diagnoses Aspiration pneumonitis J69.0 Chronic kidney disease N18.9 Chronic lumbar pain M54.5; G89.29 A-fib I48.91 COPD (chronic obstructive pulmonary disease) J44.1 COPD type: COPD with acute exacerbation BPH (benign prostatic hyperplasia) N40.0 Rheumatoid arthritis M06.9 Compression fracture CHF (congestive heart failure) I50.9 (1) COPD (chronic obstructive pulmonary disease) COPD type: COPD with acute exacerbation Qualified Code(s): J44.1 - Chronic obstructive pulmonary disease with (acute) exacerbation
[2022-02-02] MEDS ORDERED: ALBUTEROL HFA 8 GM INHALER INH PRN (22:59)
[2022-02-02] MEDS ORDERED: ALBUT/IPRATROP 3MG/0.5MG NEB 3 ML VIAL NEB PRN (22:59)
[2022-02-02] MEDS ORDERED: hydrOXYzine HCl 10 MG TAB PO PRN (23:35)
[2022-02-02] MEDS ORDERED: NITROGLYCERIN SL 0.4 MG/TAB TAB SL PRN (23:35)
[2022-02-02] MEDS ORDERED: ACETAMINOPHEN 325 MG TAB PO PRN (23:35)
[2022-02-02] MEDS ORDERED: ONDANSETRON INJ 2 MG/ML 2 ML VIAL IV PRN (23:35)
[2022-02-02] MEDS ORDERED: METOPROLOL TARTRATE 100 MG TAB PO ONE (23:35)
[2022-02-02] MEDS ORDERED: OLODATEROL HCL 2.5MCG/ACTUATION 60 PUFFS/INHALER INH PRN (23:35)
[2022-02-03] MEDS: oxyCODONE/ACETAMINOPHEN 5mg/325mg TAB PO PRN ×3 (00:50→11:54)
--- NOTE | 2022-02-03 07:14 | CT Scan Report ---
CT abd pelvis wo con CLINICAL HISTORY: epigastric pain/vomiting COMPARISON STUDY: 01/16/2021 CT DOSE: 232.04 mGy.cm TECHNIQUE: Standard CT of the Abdomen and Pelvis was performed without IV contrast. The patient did not receive oral contrast. A dose lowering technique was utilized adhering to the principles of NONA [place]. FINDINGS: Lung base: The lung bases are clear. Centrilobular emphysematous changes are again seen. Coronary art barbara calcification is also present. Abdominal cavity: There is no evidence for abdominal mass, adenopathy or ascites. There are again ace ateral inguinal hernias, left greater than right with a loop of bowel again bulging into the orifice of the hernia on the left. There is no evidence for obstruction or incarceration. Liver: The liver is homogeneous in attenuation on these limited noncontrast images..There is hepatome rosmery Spleen: The spleen is homogeneous in attenuation on these limited noncontrast images. Pancreas: The pancreas is homogeneous in attenuation on these limited noncontrast images. Gall Bladder: The gallbladder is well distended with no evidence for cholelithiasis, wall thickening or pericholecystic edema.. Adrenal glands: The adrenal glands are normal in size and attenuation on these limited noncontrast im ages. Kidneys: The kidneys are homogeneous in attenuation on these limited noncontrast images. There is no evidence for gross renal mass, calculus or hydronephrosis bilaterally. Bowel: There is a small hiatal hernia. The bowel loops are normally placed within the abdomen and pel vis without evidence for dilatation or obstruction. There is no evidence for mass lesion. There is mi ld sigmoid diverticulosis without evidence for diverticulitis. There are no inflammatory changes pres ent. There is no evidence for free air. There is no evidence for an inflamed appendix. Bladder: There is no evidence for focal bladder wall thickening, calculus or diverticulum. : There is no evidence for pelvic mass or adenopathy. There is mild prostatic enlargement. Vasculature: There is no evidence for focal aneurysmal dilatation of the abdominal aorta. Atheroscler otic calcification is present. Osseous structures: There is no acute osseous pathology. Prominent degenerative changes are seen with in the lumbar spine. There is evidence for internal fixation of the right hip. IMPRESSION: 1. No acute intra-abdominal or pelvic abnormality on these limited noncontrast images. 2. Nonacute findings are again delineated above. ACT 112: Negative or not required by law. Electronically signed by: Dakota Godoy M.D. 02/03/2022 7:12 AM
[2022-02-03 08:06] LABS: Hematocrit (blood only) 36.1 % (42-52); Hemoglobin 11.6 g/dL (14.0-18.0); Lymphocytes # (auto) 0.27 K/uL (1.2-3.4); Lymphocytes % (auto) 8.3 %; Mean Corpuscular Hemoglobin 31.2 pg (25-34); Mean Corpuscular Hgb Conc 32.1 g/dL (32-36); Mean Platelet Volume 10.2 fL (7.4-10.4); Monocytes # (auto) 0.16 K/uL (0.11-0.59); Monocytes % (auto) 4.9 %; Neutrophils # (auto) 2.84 K/uL (1.4-6.5); Neutrophils % (auto) 86.8 %; Platelet Count 120 K/uL (130-400); RDW Coefficient of Variation 13.5 % (11.5-14.5); RDW Standard Deviation 47.7 fL (36.4-46.3); Red Blood Count 3.72 M/uL (4.7-6.1); White Blood Count 3.27 K/uL (4.8-10.8)
[2022-02-03 08:24] LABS: BUN Creatinine Ratio 21.6 (10-20); Calcium 8.8 mg/dl (8.5-10.1); Creatinine Clr Calc Pharmacy 39.8 ml/min; Est GFR (African American) 72.8 ml/min; Est GFR (Non-African American) 62.8 ml/min; Magnesium 1.9 mg/dl (1.7-2.4); Potassium 4.6 mmol/L (3.5-5.1)
[2022-02-03] MEDS ORDERED: NON-FORMULARY MEDICATION (Tiotropium-Olodaterol [Stiolto Respimat] 2.5-2.5 mcg/actuation m INH SCH (09:00)
[2022-02-03] MEDS ORDERED: FUROSEMIDE 20 MG TAB PO SCH (09:00)
[2022-02-03] MEDS ORDERED: FLUTICASONE FUROATE 100MCG 14 PUFFS/INHALER INH SCH (09:00)
[2022-02-03] MEDS ORDERED: CALCIUM 600MG + VIT D 400 IU TAB PO SCH (09:00)
[2022-02-03] MEDS ORDERED: UMECLIDINIUM/VILANTEROL 62.5/25MCG 7 PUFFS/INHALER INH SCH (09:00)
[2022-02-03] MEDS ORDERED: PANTOprazole 40 MG TAB PO SCH (09:00)
[2022-02-03] MEDS ORDERED: AZITHROMYCIN 250 MG TAB PO SCH (09:00)
[2022-02-03] MEDS ORDERED: HEPARIN SOD 5,000 UNIT/0.5 ML VIAL SQ SCH (09:00)
[2022-02-03] MEDS ORDERED: predniSONE 5 MG TAB PO SCH (09:00)
[2022-02-03] MEDS ORDERED: HYDROXYCHLOROQUINE SULFATE 200 MG TAB PO SCH (09:00)
[2022-02-03] MEDS ORDERED: CYANOCOBALAMIN (B-12) 500 MCG TABLET PO SCH (09:00)
--- NOTE | 2022-02-03 15:26 | Electrocardiogram Report ---
Test Reason : Blood Pressure : / mmHG Vent. Rate : 106 BPM Atrial Rate : 106 BPM P-R Int : 178 ms QRS Dur : 080 ms QT Int : 354 ms P-R-T Axes : 056 012 066 degrees QTc Int : 470 ms Sinus tachycardia Nonspecific ST and T wave abnormality Abnormal ECG When compared with ECG of 16-JAN-2021 11:27, Non-specific change in ST segment in Lateral leads T wave amplitude has decreased in Lateral leads Confirmed by Ethan Barnes ([id number]) on 02/03/2022 3:25:58 PM Referred By: REFERRED SELF Confirmed By:Ethan Barnes
--- NOTE | 2022-02-03 18:54 | Discharge Summary ---
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 Patient came to the EMD today secondary to increase in dyspnea, this started yesterday evening. Patient reports having stir-short yesterday that was cooked at home- then about 1 hour after eating he started to feel achy, tired, and having some abdominal discomfort followed by nausea. This progressed to vomiting x2 about 1.5-2 hours after eating. It was after this that he noted himself to start feeling a bit more dyspneic and increased his oxygen at home - he normally wears between 3-5 liters- he took it to 5. Today his abdomen felt better, but was noted by his daughter to have temperature of 101 and remained with feeling fatigued and dyspneic. He also reports 1 episode of diarrhea. In the EMD he was noted to be tachypneic and increased work of breathing, he was put on BiPAP for two hours, and then was titrated back down to his normal home oxygen level. He had a CXR done, routine labs, CT scan of his abdomen and pelvis performed. CXR was noted to have no acute process, abdomen and CT scan noting a L1 compression fracture and no other acute pathology. Bladder is distended. His lab work reveals mild leukopenia, PCT is negative, he was given a dose of Zosyn by EMD. For his compression fracture, the patient does not remember falling but this lower back pain started about 2 months ago, he normally has chronic SI joint pain. He endorses no known trauma, falls, or jolts to his back for the fracture and this is likely related to his osteopenia, chronic steroid use as well as his bouts of coughing. Will keep patient overnight for likely an aspiration pneumonitis, PT/OT evaluation and follow labs in morning ensuring no infectious process. Urine is pending. COVID and Influenza are: NEGATIVE Principal Diagnosis Possible mild aspiration pneumonitis versus upper respiratory tract infection Discharge Exam PHYSICAL EXAM: General: awake, alert, no apparent distress Head: Normocephalic, atraumatic ENT: PERRL, EOMI, no pharyngeal exudate, mucous membranes moist Neuro: AAO x 3, speech clear and appropriate, strength intact bilaterally 5/5, sensation intact and equal all extremities and dermatomes, no pronator drift Chest: equal rise and fall of the chest, no accessory muscle use, no heaves or thirlls, Clear to auscultation, on room air, Cardiac: Regular rate and rhythm, telemetry reviewed- sinus tach, skin warm dry, cap refill <3 seconds, peripheral pulses +2 no JVD, systolic murmur, no edema GI: NABS x 4 quadrants, soft, nontender to palpation, no rebound, guarding or tenderness, bladder distended : Unable to void at bedside, no pain, no CVA tenderness, Extremities: Normal inspection, no peripheral edema or erythema, calfs nontender to palpation Psych: Normal mood and affect Skin: no rash or erythema Discharge Data Allergies Allergy/AdvReac Type Severity Reaction Status Date / Time No Known Allergies Allergy Verified 02/02/22 19:12 Consultations 02/02/22 21:38 ED Decision to Admit Stat Ordered Studies 02/02/22 18:46 CT abd pelvis wo con Urgent Hospital Course (1) Aspiration pneumonitis: Possible aspiration pneumonitis, however there was no evidence of pneumonia on the chest x-ray, patient oxygen recommends at baseline, patient afebrile, patient does not have a leukocytosis with left, antibiotic was discontinued and patient was discharged on Augmentin (2) COPD (chronic obstructive pulmonary disease): End-stage COPD on home oxygen - [facility] - Albuterol added-- not on home rec - Continue Respimat - Continue Spiriva - Azithromycin 250mg PO 3X week (3) CHF (congestive heart failure): HFrEF follows [facility] - Continue Metoprolol 100mg PO nightly- dose now - ECHO review from cardiology note 12/30 - notes EF 35% - Continue diuretic therapy - Not on DENVER/ARB as by report could not tolerate lisnipril and possibly to add Cozaar- defer to primary manager work/PCP (4) Chronic kidney disease: Stable no acute needs - follow volume status (5) Compression fracture: L1 stable appearing compression fracture interpreted - Likely osteopenic fracture - Pain controlled and has not caused him any increase but he does note pain there - If pain uncontrolled or changes can consider calcitonin nasal spray for such - PT/OT consultation placed (6) Chronic lumbar pain: With chronic narcotic PRN - continue as needed (7) A-fib: History of - not in Afib currently- he also endorses that he has never been on anticoagulation - follow - ECG pending on admission - Keep K ~4.0 and Mag ~ 2.0 (8) BPH (benign prostatic hyperplasia): Continue with Flomax - patient voided without difficulty - bladder scan prn retention (9) Rheumatoid arthritis: Continue with prednisone and Hydrochloroquine Total Time Total Time Spent Total Time Spent (In Minutes): 45 Discharge Plan Discharge Items Patient Disposition: Home - Self-Care Reason For Visit: HYPOXIA, NAUSEA Discharge Diagnosis: Upper respiratory tract infection Activity: Resume your previous activity Lifting: Gradually increase as tolerated Bathing: No limitations Sexual Activity: When tolerated Exercise/Sports: Gradually increase as tolerated Driving/Machine Use: No limitations Weightbearing: Full weightbearing Non-emergency contact: Primary Care Provider Call non-emergency contact if: you have any medication questions Follow-up/Referrals: Paulette Johnson PA-C [Primary Care Provider] - [facility] [Non-Staff] - 02/12/22 Diet: Low Sodium (2gm) Addtl Attending Provider Instructions: please follow with your learning support teacher in one week Pending Studies at Discharge: No Stand-Alone Forms: [employer], Smoking Cessation Medications and DC Order Prescriptions: New amoxicillin-pot clavulanate 875-125 mg tablet 1 tab PO BID Qty: 10 RF: 0 Continued magnesium oxide 420 mg tablet 420 mg PO QAM RF: 0 Stiolto Respimat 2.5-2.5 mcg/actuation mist 2 puff inhalation DAILY RF: 0 multivitamin Tablet 1 tab PO QAM RF: 0 metoprolol succinate 100 mg Tablet Extended Release 24 Hr 100 mg PO HS RF: 0 prednisone 5 mg Tablet 5 mg PO QAM RF: 0 oxycodone-acetaminophen [Percocet] 5-325 mg Tablet 1 tab PO QID PRN (Reason: mod-severe pain) RF: 0 tamsulosin 0.4 mg Capsule 0.4 mg PO HS RF: 0 pantoprazole 40 mg Tablet,Delayed Release (Dr/Ec) 40 mg PO QAM RF: 0 furosemide 20 mg Tablet 20 mg PO QAM RF: 0 hydroxychloroquine 200 mg Tablet 200 mg PO QAM RF: 0 hydroxyzine HCl 10 mg Tablet 10 mg PO BID PRN (Reason: Anxiety) RF: 0 calcium carbonate-vitamin D3 [Calcium 500 + D] 500 mg(1,250mg) -200 unit Tablet 1 tab PO QAM RF: 0 mometasone 220 mcg/ actuation (60) Aerosol Powdr Breath Activated 1 inh INHALATION PM RF: 0 olodaterol 2.5 mcg/actuation Mist 2.5 mcg INHALATION DAILY PRN (Reason: Adequate Ventilation) RF: 0 azithromycin 250 mg Tablet 250 mg PO 3XWK RF: 0 nitroglycerin 0.4 mg Tablet, Sublingual 0.4 mg sublingual UD PRN (Reason: Chest Pain) RF: 0 naloxone [Narcan] 4 mg/actuation [place],Non-Aerosol 4 mg INTRANASAL UD PRN (Reason: PAIN MEDICATION OVERLOAD) RF: 0 cyanocobalamin (vitamin B-12) 1,000 mcg Capsule 1,000 mcg PO QAM RF: 0 Discharge Orders: Discharge Order (Routine); Ordered 02/03/22 Ordered By: Charlie Arellano/Other Patient Handouts: Preventing Deep Vein Thrombosis Admission Data Admit Date/Time: 02/02/22 22:26 Attending Provider: Charlie Reyes Admit Provider: Brigida Kinney Primary Care Provider: Paulette Johnson Other Providers: Brigida Kinney ; [facility] Other Interventions: Discharge Summary Assessment (RN) Last Done: 02/03/22 15:43 Coding Level of Care Code 76426 OBS Care - Discharge Diagnoses Aspiration pneumonitis J69.0 COPD (chronic obstructive pulmonary disease) J44.1 COPD type: COPD with acute exacerbation CHF (congestive heart failure) I50.9 Chronic kidney disease N18.9 Compression fracture Chronic lumbar pain M54.5; G89.29 A-fib I48.91 BPH (benign prostatic hyperplasia) N40.0 Rheumatoid arthritis M06.9
[2022-02-03] MEDS ORDERED: TAMSULOSIN HCL 0.4 MG CAP PO SCH (21:00)
[2022-02-03] MEDS ORDERED: METOPROLOL SUCC 50MG EXT REL TAB PO SCH (21:00)
[2022-02-03] MEDS ORDERED: [UNRECOGNIZED DRUG - OTHER] INH SCH (21:00)
[2022-02-03] MEDS ORDERED: MOMETASONE INH SCH (21:00)
== END 2022-02-03 16:39 | disposition home or self-care (01) | DRG 178 ==
LOC: ED 18:31 → 3W 22:26 → SUATTDRO 22:26 → 3W 23:43

== ENCOUNTER 2022-02-04 09:33 | Inpatient (IN) ==
[2022-02-04] MEDS ORDERED: SODIUM CHLORIDE 0.9% 1000ML 500 ML IV ONE (10:24)
[2022-02-04] MEDS ORDERED: fentaNYL citrate 100 MCG/2 ML VIAL IV STA ×2 (10:24→12:50)
--- NOTE | 2022-02-04 10:59 | Emergency Department Note ---
Impression & Plan Anaplasmosis, Pulmonary embolism on right, Weakness, Elevated troponin, CURRAN (dyspnea on exertion) ED Provider Note Provider: Von Leon MD DATE OF SERVICE: 02/04/2022 CHIEF COMPLAINT: Back pain, weakness HISTORY OF PRESENT ILLNESS: Patient is a 81-year-old gentleman history of A. fib, CKD, COPD, L1 compression fracture recently hospitalized here overnight discharged yesterday presenting today with daughter. Evidently from around 10:00 last night has begun to feel more weak and had some dizziness. No falls reported. Reports he is having back pain but has not taken his home Percocet as he is unsure if it worked for his back pain. States a little bit of pain in his stomach he believes is related to his back. Denies nausea but has not been able to eat anything today. Feeling very weak in general. Patient was unable to dress himself required assistance today which is unusual and felt like he was going to fall but again has not fallen today. REVIEW OF SYSTEMS: A total of 10 review of systems was obtained and negative except as stated above in the HPI. PAST MEDICAL HISTORY: As noted above MEDICATIONS: Reviewed home medications on 5 L of oxygen at home SOCIAL HISTORY: Lives at home with daughter, former smoker PHYSICAL EXAM: GENERAL: alert and oriented in no acute distress on stretcher fatigued in appearance Head: normocephalic and atraumatic EYES: No injection, discharge or icterus. NECK: Trachea midline. LUNGS: Airway patent. No retractions. Breath sounds clear with good air entry bilaterally. HEART: Regular rate and rhythm. No chest wall tenderness ABDOMEN: Soft and non-tender, without guarding or rebound. No hepatosplenomegaly or masses BACK: Mild lumbar midline tenderness without step-off no SI joint tenderness. No bilateral flank tenderness. SKIN: Acyanotic, warm, dry, without rashes EXTREMITIES: Without swelling, tenderness or deformity NEUROLOGICAL: No focal deficits. No aphasia. No facial droop or slurred speech. Normal strength and tone in the extremities. Sensation to gross touch normal. Ambulatory. EK bpm normal sinus rhythm. No PVC or PAC. No acute ST segment elevation or depression with some LVH changes. QTc 427. Normal axis. CONTINUOUS CARDIAC MONITORING: was ordered and showed a heart rate of 80s-100s bpm in normal sinus rhythm to normal sinus rhythm PDMP was checked without noted issue. Patient's laboratory studies and imaging reviewed. Differential includes Infection, dehydration, metabolic abnormality, hy po/hyperglycemia, electrolyte disturbance, anemia, hypoxia, cardiac sources, intracerebral event, toxicologic, neurologic, as well as other pathologies. IMPRESSION/MEDICAL DECISION MAKING: Patient hospitalized with possible pneumonia and discharged on Augmentin with some nonspecific weakness. Patient states he is feeling very cold and has some chills. On baseline oxygen not hypoxic but fatigued in appearance. Some worsened leukopenia here. Procalcitonin trending upward at 0.48. Negative COVID, flu, RSV. Negative urinalysis. High sensitive troponin increased today to 36. Given generalized weakness and his age a CT of the head as well as a CTA of the chest and a CT of the abdomen pelvis was read completed look for acute pathology. 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 Ordered doxycycline and updated family. Given some additional fentanyl for pain control. Patient CT the head and abdomen pelvis without acute changes with a known L1 de generative changes. CT of the chest with a small right PE in the right lower lobe and no evidence of heart strain. Patient stable on his normal oxygen mildly tachycardic with a slight troponin elevation. Discussed with the patient and daughter at bedside as well as the hospitalist team and will place on Eliquis for any coagulation. Given doxycycline for the anaplasmosis test. Given his weakness and risk for falls likely from the anaplasmosis as well as the need for anticoagulation believe he is a fall risk to go home and the daughter and patient are in agreement. Hospitalist will evaluate for further observation here. Patient has been somewhat winded returning from the bathroom with diarrhea. Some difficulty with getting a clear pulse ox reading and as such an ABG was ordered. Went back to the bed and resting tachypnea improved. Seemed to have some exertional dyspnea. DIAGNOSIS: Weakness, anaplasmosis, elevated troponin, RLL pulmonary embolism DISPOSITION: Hospitalist will evaluate Patient was agreeable with this plan. Past Med/Surg History Medical History A-fib Anxiety and depression BPH (benign prostatic hyperplasia) Chronic kidney disease STAGE 3 COPD (chronic obstructive pulmonary disease) Degenerative disc disease Emphysema of lung Glaucoma History of restless legs syndrome Hx of gastric ulcer Hypertension Leaky heart valve FOLLOWS DR. Layne ([facility]) On home oxygen therapy 4-5L NC O2 CONT. Pernicious anemia HX OF Poor circulation "IN FINGERS" PER DAUGHTER Rheumatoid arthritis Sciatica Surgical History H/O eye surgery LASER FOR GLAUCOMA History of colonoscopy History of esophagogastroduodenoscopy (EGD) History of herniorrhaphy History of kyphoplasty History of lumbar laminectomy History of nasal septoplasty History of tonsillectomy and adenoidectomy History of tooth extraction Family History Other Family history non-contributory No family history of adverse response to anesthesia Denies family history of Kidney disease Social History Smoking Status: Former smoker Cigarettes Per Day: "1 pack a day during the war". Patient states they were in his rations.; Second Hand Exposure: No; Hx Alcohol Use: Yes Alcohol type: hard liquor Hx Substance Use: No Preferred Language: [place] Communication Ability: Effective Mechanical Insulator Required: No Beliefs That Will Affect Care: None Current Living Situation: Family Current Living Situation Comment: Lives with Daughter and Son in Law. 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 Feels Safe at Home: Yes Assistive Devices: Cane, Oxygen - Continuous and Walker Allergies Allergies Allergy/AdvReac Type Severity Reaction Status Date / Time No Known Allergies Allergy Verified 02/04/22 12:06 Home Meds Home Medications Medication Instructions Recorded Confirmed calcium carbonate 500 mg-vitamin 1 tab PO QAM 01/16/21 02/04/22 D3 5 mcg (200 unit) tablet (Calcium 500 + D) furosemide 20 mg tablet 20 mg PO QAM 01/16/21 02/04/22 hydroxychloroquine 200 mg tablet 200 mg PO QAM 01/16/21 02/04/22 hydroxyzine HCl 10 mg tablet 10 mg PO BID PRN 01/16/21 02/04/22 metoprolol succinate 100 mg 100 mg PO HS 01/16/21 02/04/22 tablet,extended release 24 hr mometasone 1 inh INHALATION HS 01/16/21 02/04/22 oxycodone-acetaminophen 5 mg-325 1 tab PO QID PRN 01/16/21 02/04/22 mg tablet (Percocet) pantoprazole 40 mg tablet,delayed 40 mg PO QAM 01/16/21 02/04/22 release prednisone 5 mg tablet 5 mg PO QAM 01/16/21 02/04/22 tamsulosin 0.4 mg capsule 0.4 mg PO HS 01/16/21 02/04/22 multivitamin 1 tab PO QAM 03/15/21 02/04/22 tiotropium 2.5 mcg-olodaterol 2.5 2 puff INHALATION QAM 03/15/21 02/04/22 mcg/actuation mist for inhalation (Stiolto Respimat) azithromycin 250 mg tablet 250 mg PO 3XWK 05/09/21 02/04/22 cyanocobalamin (vitamin B-12) 1,000 mcg PO QAM 05/09/21 02/04/22 1,000 mcg capsule naloxone 4 mg/actuation nasal 4 mg INTRANASAL UD PRN 05/09/21 02/04/22 spray (Narcan) nitroglycerin 0.4 mg sublingual 0.4 mg SUBLINGUAL UD PRN 05/09/21 02/04/22 tablet magnesium oxide 420 mg tablet 420 mg PO QAM 09/11/21 02/04/22 olodaterol 2.5 mcg/actuation mist 2.5 mcg INHALATION DAILY PRN 02/02/22 02/04/22 for inhalation albuterol sulfate 90 mcg/actuation 1 inh INHALATION QID PRN 02/04/22 02/04/22 aerosol inhaler Previous Rx's Medication Instructions Recorded amoxicillin 875 mg-potassium 1 tab PO BID #10 tab 02/03/22 clavulanate 125 mg tablet Results & Data (ED) Vital Signs Vital Signs - 24 hr 02/04/22 09:38 02/04/22 11:46 02/04/22 13:00 Temperature 36.9 C Temperature Source Temporal Artery Scan Pulse Rate 79 Pulse Rate [Left Radial] 91 H 93 H Pulse Rhythm [Left Radial] Regular Regular Pulse Strength [Left Radial] Normal Respiratory Rate 18 20 20 Respiratory Effort / Characteristics Non-Labored Respiratory Depth Normal Normal Blood Pressure 134/71 Blood Pressure [Left Arm] 129/74 139/74 Blood Pressure Mean 92 Blood Pressure Mean [Left Arm] 92 95 Blood Pressure Position [Left Arm] Lying Lying Pulse Oximetry 99 94 96 Oxygen Delivery Method Nasal Cannula Nasal Cannula Nasal Cannula Oxygen Flow Rate 5 5 5 Sepsis Recent Fever Within 48 Hours No Sepsis New/Unexplained Change in Mental Status No Sepsis Action Taken by Nursing No Action Required Laboratory Data Result diagrams: 02/04/22 11:30 02/04/22 11:30 Lab Results 02/04/22 02/04/22 02/04/22 Range/Units 10:40 11:30 11:30 WBC (4.8-10.8) K/uL RBC (4.7-6.1) M/uL Hgb (14.0-18.0) g/dL Hct (42-52) % MCV (80-100) fL MCH (25-34) pg MCHC (32-36) g/dL RDW Std Deviation (36.4-46.3) fL RDW Coeff of Nithya (11.5-14.5) % Plt Count (130-400) K/uL MPV (7.4-10.4) fL Immature Gran % (Auto) % Neut % (Auto) % Lymph % (Auto) % [place] % (Auto) % Eos % (Auto) % Baso % (Auto) % Neut # (Auto) (1.4-6.5) K/uL Lymph # (Auto) (1.2-3.4) K/uL [place] # (Auto) (0.11-0.59) K/uL Eos # (Auto) (0-0.5) K/uL Baso # (Auto) (0-0.2) K/uL Immature Gran # (Auto) (0.00-0.02) K/uL Platelet Estimate (Normal) Peripher Smr Path Cons Sodium (136-145) mmol/L Potassium (3.5-5.1) mmol/L Chloride (98-107) mmol/L Carbon Dioxide (21-32) mmol/L Anion Gap (3-11) BUN (6-23) mg/dl Creatinine (0.6-1.4) mg/dl Est Cr Clr Drug Dosing ml/min Est GFR ( Amer) ml/min Est GFR (Non-Af Amer) ml/min BUN/Creatinine Ratio (10-20) Glucose (70-99(Fasting)) mg/dl Lactate (0.4-2.0) mmol/L Calcium (8.5-10.1) mg/dl Total Bilirubin (0.2-1.0) mg/dl AST (13-39) U/L ALT (7-52) U/L Alkaline Phosphatase (34-104) U/L Troponin I High Sens 36.3 H D (0-20) pg/ml Total Protein (6.0-8.3) gm/dl Albumin (3.4-5.0) gm/dl Globulin (2.5-4.0) gm/dl Albumin/Globulin Ratio (0.9-2) Lipase (11-82) U/L Procalcitonin (0-0.5) ng/ml Urine Color Urine Appearance (Clear) Urine pH (4.5-7.5) Ur Specific [place] (1.000-1.030) Urine Protein (Negative) Urine Glucose (UA) (Negative) Urine Ketones (Negative) Urine Blood (Negative) Urine Nitrite (Negative) Urine Bilirubin (Negative) Urine Urobilinogen (Negative) Ur Leukocyte Esterase (Negative) Urine WBC (Auto) (0-5) /hpf Urine RBC (Auto) (0-4) /hpf U Hyaline Cast (Auto) (0-5) /lpf U Epithel Cells (Auto) (0-5) /lpf Urine Bacteria (Auto) (Negative) Anaplasma Smear See Comment A Anaplasma Comment Lyme Disease IgG Ab (Negative) Lyme Disease IgM Ab (Negative) SARS-CoV-2 (PCR) NEGATIVE (Negative) Influenza Type A (PCR) Negative (Neg) Influenza Type B (PCR) Negative (Neg) RSV (RT-PCR) Negative (Neg) 02/04/22 02/04/22 02/04/22 Range/Units 11:30 11:30 11:30 WBC 2.44 L (4.8-10.8) K/uL RBC 3.57 L (4.7-6.1) M/uL Hgb 11.2 L (14.0-18.0) g/dL Hct 34.6 L (42-52) % MCV 96.9 (80-100) fL MCH 31.4 (25-34) pg MCHC 32.4 (32-36) g/dL RDW Std Deviation 48.1 H (36.4-46.3) fL RDW Coeff of Nithya 13.5 (11.5-14.5) % Plt Count 82 L (130-400) K/uL MPV 10.3 (7.4-10.4) fL Immature Gran % (Auto) 0.4 % Neut % (Auto) 82.4 % Lymph % (Auto) 11.1 % [place] % (Auto) 5.7 % Eos % (Auto) 0.0 % Baso % (Auto) 0.4 % Neut # (Auto) 2.01 (1.4-6.5) K/uL Lymph # (Auto) 0.27 L (1.2-3.4) K/uL [place] # (Auto) 0.14 (0.11-0.59) K/uL Eos # (Auto) 0.00 (0-0.5) K/uL Baso # (Auto) 0.01 (0-0.2) K/uL Immature Gran # (Auto) 0.01 (0.00-0.02) K/uL Platelet Estimate Decreased L (Normal) Peripher Smr Path Cons Sodium 135 L (136-145) mmol/L Potassium 4.0 (3.5-5.1) mmol/L Chloride 97 L (98-107) mmol/L Carbon Dioxide 30 (21-32) mmol/L Anion Gap 8 (3-11) BUN 30 H (6-23) mg/dl Creatinine 1.38 (0.6-1.4) mg/dl Est Cr Clr Drug Dosing 34.5 ml/min Est GFR ( Amer) 56.0 ml/min Est GFR (Non-Af Amer) 48.3 ml/min BUN/Creatinine Ratio 21.7 H (10-20) Glucose 76 (70-99(Fasting)) mg/dl Lactate 1.3 (0.4-2.0) mmol/L Calcium 8.5 (8.5-10.1) mg/dl Total Bilirubin 0.6 (0.2-1.0) mg/dl AST 36 (13-39) U/L ALT 16 (7-52) U/L Alkaline Phosphatase 32 L (34-104) U/L Troponin I High Sens (0-20) pg/ml Total Protein 6.0 (6.0-8.3) gm/dl Albumin 3.7 (3.4-5.0) gm/dl Globulin 2.3 L (2.5-4.0) gm/dl Albumin/Globulin Ratio 1.6 (0.9-2) Lipase 21 (11-82) U/L Procalcitonin (0-0.5) ng/ml Urine Color Urine Appearance (Clear) Urine pH (4.5-7.5) Ur Specific [place] (1.000-1.030) Urine Protein (Negative) Urine Glucose (UA) (Negative) Urine Ketones (Negative) Urine Blood (Negative) Urine Nitrite (Negative) Urine Bilirubin (Negative) Urine Urobilinogen (Negative) Ur Leukocyte Esterase (Negative) Urine WBC (Auto) (0-5) /hpf Urine RBC (Auto) (0-4) /hpf U Hyaline Cast (Auto) (0-5) /lpf U Epithel Cells (Auto) (0-5) /lpf Urine Bacteria (Auto) (Negative) Anaplasma Smear Anaplasma Comment Lyme Disease IgG Ab (Negative) Lyme Disease IgM Ab (Negative) SARS-CoV-2 (PCR) (Negative) Influenza Type A (PCR) (Neg) Influenza Type B (PCR) (Neg) RSV (RT-PCR) (Neg) 02/04/22 02/04/22 Range/Units 11:30 12:06 WBC (4.8-10.8) K/uL RBC (4.7-6.1) M/uL Hgb (14.0-18.0) g/dL Hct (42-52) % MCV (80-100) fL MCH (25-34) pg MCHC (32-36) g/dL RDW Std Deviation (36.4-46.3) fL RDW Coeff of Nithya (11.5-14.5) % Plt Count (130-400) K/uL MPV (7.4-10.4) fL Immature Gran % (Auto) % Neut % (Auto) % Lymph % (Auto) % [place] % (Auto) % Eos % (Auto) % Baso % (Auto) % Neut # (Auto) (1.4-6.5) K/uL Lymph # (Auto) (1.2-3.4) K/uL [place] # (Auto) (0.11-0.59) K/uL Eos # (Auto) (0-0.5) K/uL Baso # (Auto) (0-0.2) K/uL Immature Gran # (Auto) (0.00-0.02) K/uL Platelet Estimate (Normal) Peripher Smr Path Cons Sodium (136-145) mmol/L Potassium (3.5-5.1) mmol/L Chloride (98-107) mmol/L Carbon Dioxide (21-32) mmol/L Anion Gap (3-11) BUN (6-23) mg/dl Creatinine (0.6-1.4) mg/dl Est Cr Clr Drug Dosing ml/min Est GFR ( Amer) ml/min Est GFR (Non-Af Amer) ml/min BUN/Creatinine Ratio (10-20) Glucose (70-99(Fasting)) mg/dl Lactate (0.4-2.0) mmol/L Calcium (8.5-10.1) mg/dl Total Bilirubin (0.2-1.0) mg/dl AST (13-39) U/L ALT (7-52) U/L Alkaline Phosphatase (34-104) U/L Troponin I High Sens (0-20) pg/ml Total Protein (6.0-8.3) gm/dl Albumin (3.4-5.0) gm/dl Globulin (2.5-4.0) gm/dl Albumin/Globulin Ratio (0.9-2) Lipase (11-82) U/L Procalcitonin 0.48 (0-0.5) ng/ml Urine Color Yellow Urine Appearance Clear (Clear) Urine pH 5.0 (4.5-7.5) Ur Specific [place] 1.018 (1.000-1.030) Urine Protein 1+ H (Negative) Urine Glucose (UA) Negative (Negative) Urine Ketones Negative (Negative) Urine Blood 1+ H (Negative) Urine Nitrite Negative (Negative) Urine Bilirubin Negative (Negative) Urine Urobilinogen Negative (Negative) Ur Leukocyte Esterase Negative (Negative) Urine WBC (Auto) 1-5 (0-5) /hpf Urine RBC (Auto) 0-4 (0-4) /hpf U Hyaline Cast (Auto) 0 (0-5) /lpf U Epithel Cells (Auto) 10-20 H (0-5) /lpf Urine Bacteria (Auto) Negative (Negative) Anaplasma Smear Anaplasma Comment Lyme Disease IgG Ab Negative (Negative) Lyme Disease IgM Ab Negative (Negative) SARS-CoV-2 (PCR) (Negative) Influenza Type A (PCR) (Neg) Influenza Type B (PCR) (Neg) RSV (RT-PCR) (Neg) Administered Medications Discontinued Medications Apixaban (Apixaban 2.5 Mg Tab) 5 mg PO ONCE ONE Stop: 02/04/22 14:20 Last Admin: 02/04/22 15:44 Dose: 5 mg Documented by: [id number] Doxycycline Hyclate (Doxycycline Hyclate 100 Mg Cap) 100 mg PO NOW STA Stop: 02/04/22 12:43 Last Admin: 02/04/22 13:28 Dose: 100 mg Documented by: [id number] Fentanyl Citrate (Fentanyl Citrate 100 Mcg/2 Ml Vial) 50 mcg IV NOW STA Stop: 02/04/22 10:25 Last Admin: 02/04/22 11:12 Dose: 50 mcg Documented by: [id number] Fentanyl Citrate (Fentanyl Citrate 100 Mcg/2 Ml Vial) 100 mcg IV NOW STA Stop: 02/04/22 12:51 Last Admin: 02/04/22 13:09 Dose: 100 mcg Documented by: [id number] Sodium Chloride (Nss 1000ml) 500 mls @ 999 mls/hr IV .Q31M ONE Stop: 02/04/22 10:54 Last Infusion: 02/04/22 11:48 Dose: 0 mls/hr Documented by: [id number] Admin: 02/04/22 11:12 Dose: 999 mls/hr Documented by: [id number] Ioversol (Optiray 320 125ml) 122 ml IV ONCE ONE Stop: 02/04/22 13:26 Last Admin: 02/04/22 13:26 Dose: 122 ml Documented by: [id number] Imaging Data Radiologist's Impression: Abdomen/Pelvis CT 02/04/22 10:24 CT abd pelvis IV con only CLINICAL HISTORY: back pain, weakness TECHNIQUE: Helical axial images of the abdomen and pelvis were obtained and dis played. Automated dose lowering techniques and/or adjustment according to patient size were utilized for this exam. This exam was performed with intravenous contrast. CT DOSE: 1291.36 mGy.cm COMPARISON: Comparison is made to CT abdomen pelvis 02/02/2022 FINDINGS: Lower chest: Emphysema and scarring is seen. Biatrial enlargement and atherosclerotic changes are seen. Liver: Unremarkable. No focal lesions are seen. Gallbladder and biliary tree: No calcified gallstones. Normal caliber wall. No intra- or extrahepatic biliary ductal dilation. Pancreas: Unremarkable, no focal lesions. Spleen: Unremarkable. Adrenals: Unremarkable. Kidneys and ureters: Unremarkable. Bladder: Unremarkable. Reproductive organs: Unremarkable. Bowel: Diverticulosis is seen without evidence of diverticulitis. Lymph nodes Retroperitoneal: Unremarkable. Mesenteric: Unremarkable. Pelvic: Unremarkable. Peritoneum: Normal. Vessels: Unremarkable. Abdominal wall: Left fat containing inguinal hernia. Bones: Degenerative changes in the visualized spine. Right femoral gini is seen. Compression deformity in L1 and T12 are again seen. IMPRESSION: No acute abnormalities. Degenerative changes are seen in the visualized spine including loss of height deformities in T12 and L1 which are similar in appearance to prior exam. ACT 112: Negative or not required by law. Electronically signed by: Bradley Townsend M.D. 02/04/2022 1:43 PM Chest CTA 02/04/22 10:24 CT angio chest PE protocol CLINICAL HISTORY: Chest pain, weakness, shortness of breath and back pain as well. COMPARISON STUDY: 01/16/2021 and portable chest from 02/04/2022 CT DOSE: TECHNIQUE: CT Angio of the chest was performed.followed by image post processing with coronal, and sagittal MIP reformats. Contrast Volume: Optiray 320, 122 ml FINDINGS: Vasculature: There are small pulmonary emboli demonstrated second and third degree branches of the right lower lobe pulmonary arteries. There is homogeneous perfusion of the remaining pulmonary vasculature bilaterally. No other intra luminal filling defects are seen. Airway: The airway is clear. No endobronchial lesion is identified. Lungs and pleural: Marked centrilobular emphysematous changes are seen throughout both lungs. There is right basilar atelectasis and small right pleural effusion. No confluent alveolar opacities or air bronchograms are seen. There is no evidence for left pleural effusion. Mediastinum: There is no evidence for pathologic adenopathy. There is no evidence for right heart strain. The heart size is within normal limits. Coronary artery calcification is present. The thoracic aorta is within normal limits. Atherosclerotic calcification is present. There is no evidence for pericardial effusion. Upper abdomen:The adrenal glands are normal bilaterally. Osseous structures: There is no acute osseous pathology. Impression: 1. Positive CTA with small pulmonary emboli within the second and third degree branches of right lower lobe pulmonary arteries. 2. No evidence for right heart strain. 3. Small right pleural effusion and right basilar atelectasis. 4. Coronary artery calcification 5. Marked centrilobular emphysematous changes bilaterally. ACT 112: Negative or not required by law. Electronically signed by: Dakota Godoy M.D. 02/04/2022 2:00 PM Chest X-Ray 02/04/22 10:24 XR chest 1V portable CLINICAL HISTORY: weakness COMPARISON STUDY: Chest CT January 16, 2021. Chest radiograph February 02, 2022. FINDINGS: There is no pneumothorax or pleural effusion. Severe emphysema is present. Old right-sided rib fractures noted as well as multilevel vertebroplasty. No consolidation is identified. Subtle interstitial thickening is likely chronic. No evidence for pulmonary edema. Cardiomediastinal silhouette is stable. IMPRESSION: No acute cardiopulmonary findings. Emphysema. ACT 112: Negative or not required by law. Electronically signed by: Duglas Villafuerte M.D. 02/04/2022 11:[address] 02/04/22 10:24 CT SCAN OF THE BRAIN WITHOUT IV CONTRAST CLINICAL HISTORY: Generalized weakness. COMPARISON STUDY: No priors. TECHNIQUE: Unenhanced axial CT scan of the brain is performed from the vertex to the skull base. A dose lowering technique was utilized adhering to the principles of ALARA. FINDINGS: Brain parenchyma: There are age-related involutional changes noting moderate subcortical and periventricular microangiopathic change. There is no hemorrhage, mass effect, or evidence of acute territorial ischemia by CT criteria. Petty- white matter differentiation is preserved. No extra-axial fluid collection is se en. Ventricles, sulci, cisterns: Prominent secondary to involutional change. Intracranial vasculature: There is atherosclerotic calcification of the cavernous carotid and vertebral arteries. Calvarium: Unremarkable. Sinuses and mastoids: There is mild mucosal thickening in the right maxillary an trum. The remaining paranasal sinuses are clear. The mastoid air cells are well pneumatized. Orbits: The bony orbits are grossly intact. There is a left ocular lens implant. IMPRESSION: There is no hemorrhage, mass effect, or evidence of acute territorial ischemia by CT criteria. ACT 112: Negative or not required by law. Electronically signed by: Dawson Smith M.D. 02/04/2022 1:37 PM Discharge Plan Visit Data Chief Complaint: Fever Stated Complaint: FEVER, BACK PAIN, ABD PAIN ED Provider: Von Leon Discharge Problem: Anaplasmosis, Pulmonary embolism on right, Weakness, Elevated troponin, CURARN (dyspnea on exertion) Patient Disposition: Being Evaluated by Hospitalist Forms Stand Alone Forms: [facility] Prescriptions Prescriptions: No Action magnesium oxide 420 mg tablet 420 mg PO QAM RF: 0 Stiolto Respimat 2.5-2.5 mcg/actuation mist 2 puff inhalation QAM RF: 0 multivitamin Tablet 1 tab PO QAM RF: 0 metoprolol succinate 100 mg Tablet Extended Release 24 Hr 100 mg PO HS RF: 0 prednisone 5 mg Tablet 5 mg PO QAM RF: 0 oxycodone-acetaminophen [Percocet] 5-325 mg Tablet 1 tab PO QID PRN (Reason: mod-severe pain) RF: 0 tamsulosin 0.4 mg Capsule 0.4 mg PO HS RF: 0 pantoprazole 40 mg Tablet,Delayed Release (Dr/Ec) 40 mg PO QAM RF: 0 furosemide 20 mg Tablet 20 mg PO QAM RF: 0 hydroxychloroquine 200 mg Tablet 200 mg PO QAM RF: 0 hydroxyzine HCl 10 mg Tablet 10 mg PO BID PRN (Reason: Anxiety) RF: 0 calcium carbonate-vitamin D3 [Calcium 500 + D] 500 mg(1,250mg) -200 unit Tablet 1 tab PO QAM RF: 0 mometasone 220 mcg/ actuation (60) Aerosol Powdr Breath Activated 1 inh INHALATION HS RF: 0 olodaterol 2.5 mcg/actuation Mist 2.5 mcg INHALATION DAILY PRN (Reason: Adequate Ventilation) RF: 0 amoxicillin-pot clavulanate 875-125 mg tablet 1 tab PO BID Qty: 10 RF: 0 azithromycin 250 mg Tablet 250 mg PO 3XWK RF: 0 nitroglycerin 0.4 mg Tablet, Sublingual 0.4 mg sublingual UD PRN (Reason: Chest Pain) RF: 0 naloxone [Narcan] 4 mg/actuation [place],Non-Aerosol 4 mg INTRANASAL UD PRN (Reason: PAIN MEDICATION OVERLOAD) RF: 0 cyanocobalamin (vitamin B-12) 1,000 mcg Capsule 1,000 mcg PO QAM RF: 0 albuterol sulfate 90 mcg/actuation Hfa Aerosol Inhaler 1 inh INHALATION QID PRN (Reason: Shortness Of Breath Or Wheezing) RF: 0 Referrals Referrals: Paulette Johnson, ULISSES [Primary Care Provider] -
--- NOTE | 2022-02-04 11:07 | XRay Report ---
XR chest 1V portable CLINICAL HISTORY: weakness COMPARISON STUDY: Chest CT January 16, 2021. Chest radiograph February 02, 2022. FINDINGS: There is no pneumothorax or pleural effusion. Severe emphysema is present. Old right-sided rib fractures noted as well as multilevel vertebroplasty. No consolidation is identified. Subtle inte rstitial thickening is likely chronic. No evidence for pulmonary edema. Cardiomediastinal silhouette is stable. IMPRESSION: No acute cardiopulmonary findings. Emphysema. ACT 112: Negative or not required by law. Electronically signed by: Duglas Villfauerte M.D. 02/04/2022 11:05 AM
[2022-02-04 11:49] LABS: Influenza A virus by PCR Negative (Neg); Influenza B virus by PCR Negative (Neg); RSV by PCR Negative (Neg); SARS CoV2 RNA(COVID-19) InHosp NEGATIVE (Negative)
[2022-02-04 11:52] LABS: Hematocrit (blood only) 34.6 % (42-52); Hemoglobin 11.2 g/dL (14.0-18.0); Mean Corpuscular Hemoglobin 31.4 pg (25-34); Mean Corpuscular Hgb Conc 32.4 g/dL (32-36); Mean Corpuscular Volume 96.9 fL (80-100); RDW Coefficient of Variation 13.5 % (11.5-14.5); RDW Standard Deviation 48.1 fL (36.4-46.3); Red Blood Count 3.57 M/uL (4.7-6.1); White Blood Count 2.44 K/uL (4.8-10.8)
[2022-02-04 12:09] LABS: Albumin Globulin Ratio 1.6 (0.9-2); Albumin Level 3.7 gm/dl (3.4-5.0); BUN Creatinine Ratio 21.7 (10-20); Bilirubin,Total 0.6 mg/dl (0.2-1.0); Calcium 8.5 mg/dl (8.5-10.1); Creatinine Clr Calc Pharmacy 34.5 ml/min; Est GFR (Non-African American) 48.3 ml/min; Globulin 2.3 gm/dl (2.5-4.0)
[2022-02-04 12:18] LABS: Mean Platelet Volume 10.3 fL (7.4-10.4); Platelet Count 82 K/uL (130-400)
[2022-02-04 12:21] LABS: Appearance Urine Clear (Clear); Bacteria Urine Automated Negative (Negative); Bilirubin Urine Negative (Negative); Blood Urine 1+ (Negative); Cast Urine Automated 0 /lpf (0-5); Color Urine Yellow; Glucose Urine UA Negative (Negative); Ketones Urine Negative (Negative); Leukocyte Esterase Urine Negative (Negative); Nitrite Urine Negative (Negative); Protein Urine 1+ (Negative); RBC Urine Automated 0-4 /hpf (0-4); Specific Gravity Urine 1.018 (1.000-1.030); Urobilinogen Urine Negative (Negative)
[2022-02-04 12:28] LABS: Procalcitonin 0.48 ng/ml (0-0.5)
[2022-02-04 12:34] LABS: Lyme Ab IgG w/WB Rflx Negative (Negative); Lyme Ab IgM w/WB Rflx Negative (Negative)
[2022-02-04 12:35] LABS: Basophils # (auto) 0.01 K/uL (0-0.2); Basophils % (auto) 0.4 %; Immature Granulocytes # (auto) 0.01 K/uL (0.00-0.02); Immature Granulocytes % (auto) 0.4 %; Lymphocytes # (auto) 0.27 K/uL (1.2-3.4); Lymphocytes % (auto) 11.1 %; Monocytes # (auto) 0.14 K/uL (0.11-0.59); Monocytes % (auto) 5.7 %; Neutrophils # (auto) 2.01 K/uL (1.4-6.5); Neutrophils % (auto) 82.4 %; Platelet Estimate Decreased (Normal)
[2022-02-04] MEDS ORDERED: DOXYCYCLINE HYCLATE 100 MG CAP PO STA (12:42)
[2022-02-04] MEDS ORDERED: OPTIRAY 320 125ml IV ONE (13:25)
--- NOTE | 2022-02-04 13:38 | CT Scan Report ---
CT SCAN OF THE BRAIN WITHOUT IV CONTRAST CLINICAL HISTORY: Generalized weakness. COMPARISON STUDY: No priors. TECHNIQUE: Unenhanced axial CT scan of the brain is performed from the vertex to the skull base. A do se lowering technique was utilized adhering to the principles of ALARA. FINDINGS: Brain parenchyma: There are age-related involutional changes noting moderate subcortical and periven tricular microangiopathic change. There is no hemorrhage, mass effect, or evidence of acute territori al ischemia by CT criteria. Petty-white matter differentiation is preserved. No extra-axial fluid rodolfo ection is seen. Ventricles, sulci, cisterns: Prominent secondary to involutional change. Intracranial vasculature: There is atherosclerotic calcification of the cavernous carotid and vertebr al arteries. Calvarium: Unremarkable. Sinuses and mastoids: There is mild mucosal thickening in the right maxillary antrum. The remaining p aranasal sinuses are clear. The mastoid air cells are well pneumatized. Orbits: The bony orbits are grossly intact. There is a left ocular lens implant. IMPRESSION: There is no hemorrhage, mass effect, or evidence of acute territorial ischemia by CT hima marsh. ACT 112: Negative or not required by law. Electronically signed by: Dawson Smith M.D. 02/04/2022 1:37 PM
--- NOTE | 2022-02-04 13:46 | CT Scan Report ---
CT abd pelvis IV con only CLINICAL HISTORY: back pain, weakness TECHNIQUE: Helical axial images of the abdomen and pelvis were obtained and displayed. Automated dose lowering techniques and/or adjustment according to patient size were utilized for this exam. This e xam was performed with intravenous contrast. CT DOSE: 1291.36 mGy.cm COMPARISON: Comparison is made to CT abdomen pelvis 02/02/2022 FINDINGS: Lower chest: Emphysema and scarring is seen. Biatrial enlargement and atherosclerotic changes are se en. Liver: Unremarkable. No focal lesions are seen. Gallbladder and biliary tree: No calcified gallstones. Normal caliber wall. No intra- or extrahepatic biliary ductal dilation. Pancreas: Unremarkable, no focal lesions. Spleen: Unremarkable. Adrenals: Unremarkable. Kidneys and ureters: Unremarkable. Bladder: Unremarkable. Reproductive organs: Unremarkable. Bowel: Diverticulosis is seen without evidence of diverticulitis. Lymph nodes Retroperitoneal: Unremarkable. Mesenteric: Unremarkable. Pelvic: Unremarkable. Peritoneum: Normal. Vessels: Unremarkable. Abdominal wall: Left fat containing inguinal hernia. Bones: Degenerative changes in the visualized spine. Right femoral gini is seen. Compression deformity in L1 and T12 are again seen. IMPRESSION: No acute abnormalities. Degenerative changes are seen in the visualized spine including loss of heigh t deformities in T12 and L1 which are similar in appearance to prior exam. ACT 112: Negative or not required by law. Electronically signed by: Bradley Townsend M.D. 02/04/2022 1:43 PM
--- NOTE | 2022-02-04 13:52 | History & Physical Report ---
Date of Service February 04, 2022 History of Present Illness Primary Care Provider: Paulette Johnson PA-C 81yo M w/ hx of CHF, CKD, COPD who presents with weakness and dizziness, likely due to anaplasmosis. He was recently admitted to the hospital with presumed aspiration pneumonitis, and was sent home on Augmentin. However, he Allergies Allergy/AdvReac Type Severity Reaction Status Date / Time No Known Allergies Allergy Verified 02/04/22 12:06 Home Medications Medication Instructions Recorded Confirmed Type calcium carbonate 500 mg-vitamin 1 tab PO QAM 01/16/21 02/04/22 History D3 5 mcg (200 unit) tablet (Calcium 500 + D) furosemide 20 mg tablet 20 mg PO QAM 01/16/21 02/04/22 History hydroxychloroquine 200 mg tablet 200 mg PO QAM 01/16/21 02/04/22 History hydroxyzine HCl 10 mg tablet 10 mg PO BID PRN 01/16/21 02/04/22 History metoprolol succinate 100 mg 100 mg PO HS 01/16/21 02/04/22 History tablet,extended release 24 hr mometasone 1 inh INHALATION HS 01/16/21 02/04/22 History oxycodone-acetaminophen 5 mg-325 1 tab PO QID PRN 01/16/21 02/04/22 History mg tablet (Percocet) pantoprazole 40 mg tablet,delayed 40 mg PO QAM 01/16/21 02/04/22 History release prednisone 5 mg tablet 5 mg PO QAM 01/16/21 02/04/22 History tamsulosin 0.4 mg capsule 0.4 mg PO HS 01/16/21 02/04/22 History multivitamin 1 tab PO QAM 03/15/21 02/04/22 History tiotropium 2.5 mcg-olodaterol 2.5 2 puff INHALATION QAM 03/15/21 02/04/22 History mcg/actuation mist for inhalation (Stiolto Respimat) azithromycin 250 mg tablet 250 mg PO 3XWK 05/09/21 02/04/22 History cyanocobalamin (vitamin B-12) 1,000 mcg PO QAM 05/09/21 02/04/22 History 1,000 mcg capsule naloxone 4 mg/actuation nasal 4 mg INTRANASAL UD PRN 05/09/21 02/04/22 History spray (Narcan) nitroglycerin 0.4 mg sublingual 0.4 mg SUBLINGUAL UD PRN 05/09/21 02/04/22 History tablet magnesium oxide 420 mg tablet 420 mg PO QAM 09/11/21 02/04/22 History olodaterol 2.5 mcg/actuation mist 2.5 mcg INHALATION DAILY PRN 02/02/22 02/04/22 History for inhalation amoxicillin 875 mg-potassium 1 tab PO BID #10 tab 02/03/22 02/04/22 Rx clavulanate 125 mg tablet albuterol sulfate 90 mcg/actuation 1 inh INHALATION QID PRN 02/04/22 02/04/22 History aerosol inhaler Past Med/Surg History Medical History A-fib Anxiety and depression BPH (benign prostatic hyperplasia) Chronic kidney disease STAGE 3 COPD (chronic obstructive pulmonary disease) Degenerative disc disease Emphysema of lung Glaucoma History of restless legs syndrome Hx of gastric ulcer Hypertension Leaky heart valve FOLLOWS DR. Layne ([facility]) On home oxygen therapy 4-5L [place] O2 CONT. Pernicious anemia HX OF Poor circulation "IN FINGERS" PER DAUGHTER Rheumatoid arthritis Sciatica Surgical History H/O eye surgery LASER FOR GLAUCOMA History of colonoscopy History of esophagogastroduodenoscopy (EGD) History of herniorrhaphy History of kyphoplasty History of lumbar laminectomy History of nasal septoplasty History of tonsillectomy and adenoidectomy History of tooth extraction Family History Other Family history non-contributory No family history of adverse response to anesthesia Denies family history of Kidney disease Social History Smoking Status: Former smoker Cigarettes Per Day: "1 pack a day during the war". Patient states they were in his rations.; Second Hand Exposure: No; Hx Alcohol Use: Yes Alcohol type: hard liquor Hx Substance Use: No Preferred Language: Hebrew Communication Ability: Effective Environmental Education Specialist Required: No Beliefs That Will Affect Care: None Current Living Situation: Family Current Living Situation Comment: Lives with Daughter and Son in Law. 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
--- NOTE | 2022-02-04 14:02 | CT Scan Report ---
CT angio chest PE protocol CLINICAL HISTORY: Chest pain, weakness, shortness of breath and back pain as well. COMPARISON STUDY: 01/16/2021 and portable chest from 02/04/2022 CT DOSE: TECHNIQUE: CT Angio of the chest was performed.followed by image post processing with coronal, and s agittal MIP reformats. Contrast Volume: Optiray 320, 122 ml FINDINGS: Vasculature: There are small pulmonary emboli demonstrated second and third degree branches of the ri ght lower lobe pulmonary arteries. There is homogeneous perfusion of the remaining pulmonary vasculat ure bilaterally. No other intraluminal filling defects are seen. Airway: The airway is clear. No endobronchial lesion is identified. Lungs and pleural: Marked centrilobular emphysematous changes are seen throughout both lungs. There i s right basilar atelectasis and small right pleural effusion. No confluent alveolar opacities or air bronchograms are seen. There is no evidence for left pleural effusion. Mediastinum: There is no evidence for pathologic adenopathy. There is no evidence for right heart str ain. The heart size is within normal limits. Coronary artery calcification is present. The thoracic a evelio is within normal limits. Atherosclerotic calcification is present. There is no evidence for heena cardial effusion. Upper abdomen:The adrenal glands are normal bilaterally. Osseous structures: There is no acute osseous pathology. Impression: 1. Positive CTA with small pulmonary emboli within the second and third degree branches of right lowe r lobe pulmonary arteries. 2. No evidence for right heart strain. 3. Small right pleural effusion and right basilar atelectasis. 4. Coronary artery calcification 5. Marked centrilobular emphysematous changes bilaterally. ACT 112: Negative or not required by law. Electronically signed by: Dakota Godoy M.D. 02/04/2022 2:00 PM
[2022-02-04] MEDS ORDERED: APIXABAN 2.5 MG TAB PO ONE (14:19)
[2022-02-04] MEDS ORDERED: ALBUTEROL HFA 8 GM INHALER INH PRN (14:49)
[2022-02-04] MEDS ORDERED: OLODATEROL HCL 2.5MCG/ACTUATION 60 PUFFS/INHALER INH PRN (14:49)
[2022-02-04] MEDS ORDERED: hydrOXYzine HCl 10 MG TAB PO PRN (14:49)
[2022-02-04] MEDS ORDERED: NITROGLYCERIN SL 0.4 MG/TAB TAB SL PRN (14:49)
[2022-02-04] MEDS ORDERED: NALOXONE NASAL SPRAY 4 MG ER HOMEPACK PRN (14:49)
[2022-02-04] MEDS ORDERED: MAGNESIUM HYDROXIDE SUSP 30 ML UDC PO PRN (14:52)
[2022-02-04] MEDS ORDERED: ACETAMINOPHEN 325 MG TAB PO PRN (14:52)
--- NOTE | 2022-02-04 15:13 | History & Physical Report ---
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 - [facility] - Continue Respimat -Hold Spiriva - hold Azithromycin as long as the patient is on doxycycline (3) Anaplasmosis: Plan: Doxycycline 100 mg IV twice daily (4) Pulmonary emboli: Plan: Eliquis 10 mg twice daily (5) Chronic kidney disease: Plan: HFrEF [facility] - Continue Metoprolol 100mg PO nightly- dose now - ECHO review from cardiology note 12/30 - notes EF 35% - Continue diuretic therapy (6) Compression fracture: Plan: -Likely osteopenic fracture - Pain controlled and has not caused him any increase but he does note pain there -Needs to be followed up outpatient (7) CHF (congestive heart failure): Plan: Plan: Compensated, continue diuretic (8) Closed L1 vertebral fracture: (9) A-fib: Plan: - not in Afib currently -Continue metoprolol patient is not taking any anticoagulant History of Present Illness Chief Complaint: Fever generalized weakness Primary Care Provider: Paulette Johnson PA-C 81 YOM with medical history of: COPD (emphysema on 5L home oxygen therapy), diverticulosis, multiple back surgeries- laminectomy and kyphoplasty, DJD, afib, aortic stenosis, anxiety, insomnia, CKD III, GERD, BPH, Osteopetrosis, RA (hydrochloroquine) normally follows at the [facility]. who was admitted at this facility from 02/02-02/03 because of dyspnea, started after having stir-short that was cooked at home- then about 1 hour after eating he started to feel achy, tired, and having some abdominal discomfort followed by nausea. This progressed to vomiting x2 about 1.5-2 hours after eating. I examined the patient all her symptoms was resolved. His chest x-ray was unremarkable and his oxygen requirement was at the baseline, patient was afebrile and did not have any respiratory symptoms the next day therefore patient was discharged on Augmentin for possible mild aspiration pneumonitis versus mild bronchitis given his history of COPD. He was discharged home on 02/03 however apparently at night patient developed chills fever . Initial work-up in the ER showed small PE in the right lower lobe. Moreover, her serology work-up during the prior admission showed his Anaplasma smear is positive. Allergies Allergy/AdvReac Type Severity Reaction Status Date / Time No Known Allergies Allergy Verified 02/04/22 12:06 Home Medications Medication Instructions Recorded Confirmed Type calcium carbonate 500 mg-vitamin 1 tab PO QAM 01/16/21 02/04/22 History D3 5 mcg (200 unit) tablet (Calcium 500 + D) furosemide 20 mg tablet 20 mg PO QAM 01/16/21 02/04/22 History hydroxychloroquine 200 mg tablet 200 mg PO QAM 01/16/21 02/04/22 History hydroxyzine HCl 10 mg tablet 10 mg PO BID PRN 01/16/21 02/04/22 History metoprolol succinate 100 mg 100 mg PO HS 01/16/21 02/04/22 History tablet,extended release 24 hr mometasone 1 inh INHALATION HS 01/16/21 02/04/22 History oxycodone-acetaminophen 5 mg-325 1 tab PO QID PRN 01/16/21 02/04/22 History mg tablet (Percocet) pantoprazole 40 mg tablet,delayed 40 mg PO QAM 01/16/21 02/04/22 History release prednisone 5 mg tablet 5 mg PO QAM 01/16/21 02/04/22 History tamsulosin 0.4 mg capsule 0.4 mg PO HS 01/16/21 02/04/22 History multivitamin 1 tab PO QAM 03/15/21 02/04/22 History tiotropium 2.5 mcg-olodaterol 2.5 2 puff INHALATION QA 03/15/21 02/04/22 History mcg/actuation mist for inhalation (Stiolto Respimat) azithromycin 250 mg tablet 250 mg PO 3XWK 05/09/21 02/04/22 History cyanocobalamin (vitamin B-12) 1,000 mcg PO QAM 05/09/21 02/04/22 History 1,000 mcg capsule naloxone 4 mg/actuation nasal 4 mg INTRANASAL UD PRN 05/09/21 02/04/22 History spray (Narcan) nitroglycerin 0.4 mg sublingual 0.4 mg SUBLINGUAL UD PRN 05/09/21 02/04/22 History tablet magnesium oxide 420 mg tablet 420 mg PO QAM 09/11/21 02/04/22 History olodaterol 2.5 mcg/actuation mist 2.5 mcg INHALATION DAILY PRN 02/02/22 02/04/22 History for inhalation amoxicillin 875 mg-potassium 1 tab PO BID #10 tab 02/03/22 02/04/22 Rx clavulanate 125 mg tablet albuterol sulfate 90 mcg/actuation 1 inh INHALATION QID PRN 02/04/22 02/04/22 History aerosol inhaler Past Med/Surg History Medical History A-fib Anxiety and depression BPH (benign prostatic hyperplasia) Chronic kidney disease STAGE 3 COPD (chronic obstructive pulmonary disease) Degenerative disc disease Emphysema of lung Glaucoma History of restless legs syndrome Hx of gastric ulcer Hypertension Leaky heart valve FOLLOWS DR. Layne ([facility]) On home oxygen therapy 4-5L [place] O2 CONT. Pernicious anemia HX OF Poor circulation "IN FINGERS" PER DAUGHTER Rheumatoid arthritis Sciatica Surgical History H/O eye surgery LASER FOR GLAUCOMA History of colonoscopy History of esophagogastroduodenoscopy (EGD) History of herniorrhaphy History of kyphoplasty History of lumbar laminectomy History of nasal septoplasty History of tonsillectomy and adenoidectomy History of tooth extraction Family History Other Family history non-contributory No family history of adverse response to anesthesia Denies family history of Kidney disease Social History Smoking Status: Former smoker Cigarettes Per Day: "1 pack a day during the war". Patient states they were in his rations.; Second Hand Exposure: No; Hx Alcohol Use: Yes Alcohol type: hard liquor Hx Substance Use: No Preferred Language: Bhutanese Communication Ability: Effective Brokerage Clerk Required: No Beliefs That Will Affect Care: None Current Living Situation: Family Current Living Situation Comment: Lives with Daughter and Son in Law. 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 Feels Safe at Home: Yes Assistive Devices: Cane, Oxygen - Continuous and Walker Review of Systems Review of Systems: All 12 organs were reviewed unremarkable unless mentioned above in HPI Physical Exam Physical Exam: General: Alert oriented x3, looks chronically ill Neck: No lymphadenopathy, supple Respiratory: Lungs are clear to auscultation no chest abnormality, tachypnea Cardiovascular: Regular rate and rhythm no murmur no gallop vegetation Abdomen: Soft bowel sounds active Extremities: No edema no tenderness Skin: No jaundice no rash Neurology: Alert oriented x3 no acute distress moves all extremities Psychiatry mood and affect appropriate Results & Data Results & Data ([facility]) Vital Signs (Past 12 Hours) Vital Signs Temp Pulse Pulse Resp BP BP Pulse Ox 02/04/22 13:00 93 H 20 139/74 96 02/04/22 11:46 91 H 20 129/74 94 02/04/22 09:38 36.9 C 79 18 134/71 99 Code Status & VTE Plan VTE Prophylaxis Plan VTE Prophylaxis will be ordered: No PG Care Time/CCT Total # of Minutes Spent Total Time Spent with Patient: Total time spent is greater than 50% in coordination of care (as documented) at patient's floor/unit and/or counseling patient: Coding Level of Care Code 43577 Initial Inpt Care Lvl 3 Diagnoses Rheumatoid arthritis M06.9 COPD (chronic obstructive pulmonary disease) J44.1 COPD type: COPD with acute exacerbation Anaplasmosis A77.49 Pulmonary emboli I26.99 Chronic kidney disease N18.9 Compression fracture CHF (congestive heart failure) I50.9 Closed L1 vertebral fracture S32.019A Encounter type: initial encounter Fracture morphology: unspecified fracture morphology A-fib I48.91 (1) COPD (chronic obstructive pulmonary disease) COPD type: COPD with acute exacerbation Qualified Code(s): J44.1 - Chronic obstructive pulmonary disease with (acute) exacerbation (2) Closed L1 vertebral fracture Encounter type: initial encounter Fracture morphology: unspecified fracture morphology Qualified Code(s): S32.019A - Unspecified fracture of first lumbar vertebra, initial encounter for closed fracture
--- NOTE | 2022-02-04 15:32 | Electrocardiogram Report ---
Test Reason : Blood Pressure : / mmHG Vent. Rate : 093 BPM Atrial Rate : 093 BPM P-R Int : 156 ms QRS Dur : 074 ms QT Int : 344 ms P-R-T Axes : 064 015 073 degrees QTc Int : 427 ms Poor data quality, interpretation may be adversely affected Normal sinus rhythm Left ventricular hypertrophy with repolarization abnormality Abnormal ECG When compared with ECG of 03-FEB-2022 00:16, No significant change was found Confirmed by Ethan Barnes ([id number]) on 02/04/2022 3:32:19 PM Referred By: ED Confirmed By:Ethan Barnes
[2022-02-04] MEDS ORDERED: predniSONE 20 MG TAB PO STA (15:40)
[2022-02-04 15:52] LABS: Base Excess ABG -2.2 mEq/L (-9-1.8); HCO3 ABG 21 mmol/L (19-24); Oxygen Saturation ABG 94.5 % (90-95); PCO2 ABG 33 mmHg (35-46); PO2 ABG 67 mmHg (80-95); pH ABG 7.43 (7.35-7.45)
[2022-02-04 16:08] LABS: Allen Test Pos (Pos)
[2022-02-04] MEDS: oxyCODONE/ACETAMINOPHEN 5mg/325mg TAB PO PRN (19:46)
[2022-02-04] MEDS: ALBUT/IPRATROP 3MG/0.5MG NEB 3 ML VIAL NEB SCH (20:12)
[2022-02-04] MEDS ORDERED: AMOXICILLIN/CLAVULANATE 875MG HOME PACK PO SCH (21:00)
[2022-02-04] MEDS ORDERED: TAMSULOSIN HCL 0.4 MG CAP PO SCH (21:00)
[2022-02-04] MEDS ORDERED: METOPROLOL SUCC 50MG EXT REL TAB PO SCH (21:00)
[2022-02-04] MEDS: APIXABAN 5 MG TABLET PO SCH (21:41)
[2022-02-04] MEDS: FLUTICASONE FUROATE 200MCG 14 PUFFS/INHALER INH SCH (21:42)
[2022-02-04] MEDS ORDERED: LACTATED RINGER'S 250 ML IV ONE (22:14)
[2022-02-04] MEDS ORDERED: LACTATED RINGER'S 1,000 ML IV SCH (22:15)
--- NOTE | 2022-02-04 22:25 | Communication Note ---
Date of Service: February 04, 2022 Notified by RN that patient was HoTN to ~90/60 with HR ~110 around 2200 this evening. Patient noted to be febrile to ~102 around change of shift. I have re viewed their chart and note that he was recently hospitalized for PNA. He now has evidence of small PEs without heart strain on CTA and laboratory and clinical findings concerning for possible anaplasmosis. He denies chest pain, SOB, belly pain, nausea. I came up to assess the patient. BP 94/60 with HR 110, SpO2 92% at bedside. He is somnolent but arousable and responds to questions appropriately. He looks pale and ill. Cardiac - Mildly tachycardic with irregular rhythm, grade 2/6 systolic murmur best heard at apex and LLSB. No JVD. Respiratory - diminished inspiratory effort, but no distress; grossly CTAB w/o obvious crackles or wheezes. Abdominal - soft nt/nd. Skin - distal UEs are somewhat cool to the touch. Capillary refill approx. 5-6 seconds. No evidence of peripheral edema. Noted that patient was sleeping at time of initially lower BP, however I am concerned that with his fever, increasing HR, and ill appearance on exam that he may have a progressing infection and progressing towards hemodynamic lability - suspect secondary to anaplasma. His PEs are small and without e/o heart strain on CTA, lesser suspicion this is contributing at present - but considered and monitoring. His history was reviewed, alongside his most recent TTE which shows LVEF 40%; he appears dry on exam. He will be transferred to CT with Telemetry. I will give him 250cc bolus of NSS now and start mIVF @ 125cc/hr x 500cc, give more if needed. Start CFTX 2g IV q24 - can discontinue as appropriate. Hold metoprolol, Flomax, and AM Lasix upon transfer. Check CBC, BMP, lactate, procalcitonin, and hs-trop now. Will continue monitoring and update if there are changes to care plan. Resident Activity Tracking Resident Involvement: Resident Care Provided Care Provided: Adult Hospital Medicine
[2022-02-04] MEDS ORDERED: SODIUM CHLORIDE 0.9% 1000ML 250 ML IV ONE (22:59)
[2022-02-04] MEDS ORDERED: SODIUM CHLORIDE 0.9% 500 ML IV SCH (23:00)
[2022-02-04 23:18] LABS: Hematocrit (blood only) 36.3 % (42-52); Hemoglobin 11.6 g/dL (14.0-18.0); Mean Corpuscular Volume 97.1 fL (80-100); RDW Coefficient of Variation 13.6 % (11.5-14.5); RDW Standard Deviation 48.3 fL (36.4-46.3); Red Blood Count 3.74 M/uL (4.7-6.1); White Blood Count 3.59 K/uL (4.8-10.8)
[2022-02-04 23:21] LABS: Base Excess VBG -0.6 mEq/L; HCO3 VBG 26 mmol/L; PCO2 VBG 51 mmHg (38-50); PO2 VBG 27 mmHg; pH VBG 7.32 (7.36-7.41)
[2022-02-04 23:38] LABS: Platelet Count 73 K/uL (130-400)
[2022-02-04 23:40] LABS: BUN Creatinine Ratio 23.1 (10-20); Calcium 8.6 mg/dl (8.5-10.1); Creatinine Clr Calc Pharmacy 32.9 ml/min; Potassium 4.3 mmol/L (3.5-5.1)
[2022-02-04 23:42] LABS: Basophils # (auto) 0.01 K/uL (0-0.2); Basophils % (auto) 0.3 %; Giant Platelets 1+; Immature Granulocytes # (auto) 0.01 K/uL (0.00-0.02); Immature Granulocytes % (auto) 0.3 %; Lymphocytes # (auto) 0.37 K/uL (1.2-3.4); Lymphocytes % (auto) 10.3 %; Monocytes % (auto) 8.4 %; Neutrophils % (auto) 80.7 %
[2022-02-04 23:47] LABS: Troponin I High Sensitivity 131.5 pg/ml (0-20)
[2022-02-04 23:49] LABS: Oxygen Saturation VBG < 60.0 %
[2022-02-05] MEDS ORDERED: SODIUM CHLORIDE 0.9% 1000ML 500 ML IV ONE ×2 (00:16→01:36)
[2022-02-05] MEDS ORDERED: SODIUM CHLORIDE 0.9% 1000ML 250 ML IV ONE (01:41)
[2022-02-05] MEDS: cefTRIAXone SODIUM 2,000 MG in DEXTROSE 5% 50 ML IV SCH (02:32)
[2022-02-05] MEDS: DOXYCYCLINE HYCLATE 100 MG in DEXTROSE 5% 100 ML IV SCH ×2 (03:12→14:41)
[2022-02-05] MEDS: SODIUM CHLORIDE 0.9% 1000ML 1,000 ML IV SCH ×2 (04:49→17:22)
[2022-02-05] MEDS: oxyCODONE/ACETAMINOPHEN 5mg/325mg TAB PO PRN ×4 (05:05→21:57)
[2022-02-05 06:53] LABS: Troponin I High Sensitivity 123.2 pg/ml (0-20)
[2022-02-05 06:56] LABS: BUN Creatinine Ratio 26.6 (10-20); Calcium 7.8 mg/dl (8.5-10.1); Creatinine Clr Calc Pharmacy 35.6 ml/min; Est GFR (African American) 63.7 ml/min; Est GFR (Non-African American) 54.9 ml/min; Potassium 4.2 mmol/L (3.5-5.1)
[2022-02-05] MEDS: ALBUT/IPRATROP 3MG/0.5MG NEB 3 ML VIAL NEB SCH (07:06)
[2022-02-05 07:42] LABS: Hemoglobin 11.2 g/dL (14.0-18.0); Mean Corpuscular Hemoglobin 30.6 pg (25-34); Mean Corpuscular Volume 95.6 fL (80-100); RDW Coefficient of Variation 13.7 % (11.5-14.5); RDW Standard Deviation 47.8 fL (36.4-46.3); Red Blood Count 3.66 M/uL (4.7-6.1); White Blood Count 3.16 K/uL (4.8-10.8)
[2022-02-05 07:43] LABS: Platelet Count 60 K/uL (130-400)
[2022-02-05 08:59] LABS: Basophils # (auto) 0.04 K/uL (0-0.2); Basophils % (auto) 1.3 %; Immature Granulocytes # (auto) 0.01 K/uL (0.00-0.02); Immature Granulocytes % (auto) 0.3 %; Lymphocytes # (auto) 0.62 K/uL (1.2-3.4); Lymphocytes % (auto) 19.6 %; Monocytes # (auto) 0.38 K/uL (0.11-0.59); Neutrophils # (auto) 2.11 K/uL (1.4-6.5); Neutrophils % (auto) 66.8 %
[2022-02-05] MEDS ORDERED: FUROSEMIDE 20 MG TAB PO SCH (09:00)
[2022-02-05] MEDS ORDERED: HYDROXYCHLOROQUINE SULFATE 200 MG TAB PO SCH (09:00)
[2022-02-05] MEDS ORDERED: predniSONE 5 MG TAB PO SCH (09:00)
[2022-02-05] MEDS: CALCIUM 600MG + VIT D 400 IU TAB PO SCH (09:13)
[2022-02-05] MEDS: CYANOCOBALAMIN (B-12) 500 MCG TABLET PO SCH (09:13)
[2022-02-05] MEDS: MULTIVITAMIN TAB PO SCH (09:14)
[2022-02-05] MEDS: APIXABAN 5 MG TABLET PO SCH ×2 (09:14→21:11)
[2022-02-05] MEDS: predniSONE 20 MG TAB PO SCH (09:14)
[2022-02-05] MEDS: MAGNESIUM OXIDE 400 MG TAB PO SCH (09:14)
[2022-02-05] MEDS: PANTOprazole 40 MG TAB PO SCH (09:14)
[2022-02-05] MEDS: UMECLIDINIUM/VILANTEROL 62.5/25MCG 7 PUFFS/INHALER INH SCH (09:15)
--- NOTE | 2022-02-05 10:20 | Electrocardiogram Report ---
Test Reason : Blood Pressure : / mmHG Vent. Rate : 099 BPM Atrial Rate : 107 BPM P-R Int : 000 ms QRS Dur : 070 ms QT Int : 366 ms P-R-T Axes : 000 006 033 degrees QTc Int : 469 ms Atrial fibrillation Nonspecific ST abnormality Abnormal ECG When compared with ECG of 04-FEB-2022 10:35, Atrial fibrillation has replaced Sinus rhythm Confirmed by Ethan Barnes ([id number]) on 02/05/2022 10:19:42 AM Referred By: REFERRED SELF Confirmed By:Ethan Barnes
[2022-02-05] MEDS ORDERED: dilTIAZem HCl 5 MG/ML 5 ML VIAL IV STA ×2 (10:38→14:17)
[2022-02-05] MEDS: LEVALBUTEROL HCL 0.63 MG/3 ML NEB NEB SCH ×2 (12:20→19:52)
[2022-02-05] MEDS ORDERED: STAT IV Infusion **Titration per Protocol STA ×2 (14:17→18:04)
[2022-02-05] MEDS: dilTIAZem HCL 125 MG in DEXTROSE 5% 100 ML IV SCH (15:41)
--- NOTE | 2022-02-05 17:05 | Electrocardiogram Report ---
Test Reason : Blood Pressure : / mmHG Vent. Rate : 121 BPM Atrial Rate : 108 BPM P-R Int : 000 ms QRS Dur : 074 ms QT Int : 314 ms P-R-T Axes : 000 -15 057 degrees QTc Int : 445 ms Probable Multifocal atrial tachycardia Nonspecific ST and T wave abnormality Abnormal ECG When compared with ECG of 04-FEB-2022 23:44, Nonspecific T wave abnormality now evident in Lateral leads Confirmed by Ethan Barnes ([id number]) on 02/05/2022 5:05:04 PM Referred By: REFERRED SELF Confirmed By:Ethan Barnes
[2022-02-05] MEDS ORDERED: AMIODARONE IV BOLUS & DRIP IV STA (18:04)
[2022-02-05] MEDS ORDERED: AMIODARONE / D5W 150 MG/100 ML BAG IV STA (18:04)
[2022-02-05] MEDS ORDERED: 0.2 MICRON FILTER SET 1 EA IV ONE (18:04)
[2022-02-05] MEDS ORDERED: AMIODARONE / D5W 360 MG/200 ML BAG IV ONE (18:15)
--- NOTE | 2022-02-05 18:17 | Hospitalist Progress Note ---
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 fib Patient recent echo showed EF of 40% Echocardiogram showed mild mitral regurgitation (3) Pulmonary emboli: Plan: Diagnosed during this admission Eliquis 10 mg twice daily (4) COPD (chronic obstructive pulmonary disease): Plan: -Changed to Xopenex every 6 hours due to A. 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 - [facility] Respimat -Hold Spiriva - hold Azithromycin as long as the patient is on doxycycline (5) CHF (congestive heart failure): Plan: Plan: Compensated, continue diuretic Had echocardiogram recently showed EF of 40% (6) Rheumatoid arthritis: Plan: Hold Plaqueni for now (7) Chronic kidney disease: Plan: HFrEF [facility] - Continue Metoprolol 100mg PO nightly- dose now - ECHO review from cardiology note 12/30 - notes EF 35% - Continue diuretic therapy (8) Compression fracture: Plan: -Likely osteopenic fracture - Pain controlled and has not caused him any increase but he does note pain there -Needs to be followed up outpatient (9) Closed L1 vertebral fracture: Admission and Anticipated Discharge Date Admission Date: February 04, 2022 Subjective Today patient developed A. fib with RVR, subsequently DuoNeb was discontinued, patient started on Xopenex, patient has no wheezing on exam, initially patient started on Cardizem drip, he did not respond, he was started on amnio drip Patient had a recent echocardiogram done during this month showed ejection fraction of 40% most likely this is triggered by Anaplasmosis infection Review of Systems Review of Systems: All 12 organs were reviewed unremarkable unless mentioned above in HPI Physical Exam Physical Exam: General: Alert oriented x3, looks chronically ill Neck: No lymphadenopathy, supple Respiratory: Lungs are clear to auscultation no chest abnormality, tachypnea Cardiovascular: Regular rate and rhythm no murmur no gallop vegetation Abdomen: Soft bowel sounds active Extremities: No edema no tenderness Skin: No jaundice no rash Neurology: Alert oriented x3 no acute distress moves all extremities Psychiatry mood and affect appropriate Results & Data Results & Data ([facility]) Vital Signs (Past 12 Hours) Vital Signs Temp Pulse Pulse Pulse Resp BP Pulse Ox 02/05/22 15:37 36.6 C 157 H 18 120/78 95 02/05/22 14:49 110 H 104/66 02/05/22 14:45 158 H 111/76 02/05/22 12:20 101 H 18 97 02/05/22 11:39 36.9 C 106 H 14 100/63 92 02/05/22 10:36 130 H 02/05/22 09:50 124 H 118/78 95 02/05/22 07:08 102 H 18 99 02/05/22 07:00 100 H 02/05/22 06:28 36.5 C 97 H 18 99/64 L 99 PG Care Time/CCT Total # of Minutes Spent Total Time Spent with Patient: Total time spent is greater than 50% in coordination of care (as documented) at patient's floor/unit and/or counseling patient: Coding Level of Care Code 33930 Subseq Hosp Care Lvl 3 Diagnoses Rheumatoid arthritis M06.9 COPD (chronic obstructive pulmonary disease) J44.1 COPD type: COPD with acute exacerbation Anaplasmosis A77.49 Pulmonary emboli I26.99 Chronic kidney disease N18.9 Compression fracture CHF (congestive heart failure) I50.9 Closed L1 vertebral fracture S32.019A Encounter type: initial encounter Fracture morphology: unspecified fracture morphology Atrial fibrillation with RVR I48.91 (1) COPD (chronic obstructive pulmonary disease) COPD type: COPD with acute exacerbation Qualified Code(s): J44.1 - Chronic obstructive pulmonary disease with (acute) exacerbation (2) Closed L1 vertebral fracture Encounter type: initial encounter Fracture morphology: unspecified fracture morphology Qualified Code(s): S32.019A - Unspecified fracture of first lumbar vertebra, initial encounter for closed fracture
--- NOTE | 2022-02-05 19:10 | XRay Report ---
XR chest 1V portable CLINICAL HISTORY: Shortness of breath COMPARISON STUDY: Chest CT and chest radiograph February 04, 2022. FINDINGS: Incidental note is made of multilevel vertebroplasties as well as old right-sided rib fract ures. There is severe emphysema. Cardiomegaly is noted. Mild interstitial thickening is noted. Mild b ibasilar opacities favor atelectasis. IMPRESSION: 1. Mild cardiomegaly. Interstitial thickening which favors mild pulmonary edema. 2. Emphysema. 3. Bibasilar opacities which favor atelectasis. ACT 112: Negative or not required by law. Electronically signed by: Duglas Villafuerte M.D. 02/05/2022 7:09 PM
[2022-02-05] MEDS: FLUTICASONE FUROATE 200MCG 14 PUFFS/INHALER INH SCH (21:12)
[2022-02-06] MEDS ORDERED: AMIODARONE / D5W 360 MG/200 ML BAG IV SCH (00:15)
[2022-02-06] MEDS: LEVALBUTEROL HCL 0.63 MG/3 ML NEB NEB SCH ×4 (00:39→19:25)
[2022-02-06] MEDS: cefTRIAXone SODIUM 2,000 MG in DEXTROSE 5% 50 ML IV SCH (01:02)
[2022-02-06] MEDS: DOXYCYCLINE HYCLATE 100 MG in DEXTROSE 5% 100 ML IV SCH ×2 (01:45→14:45)
[2022-02-06] MEDS: dilTIAZem HCL 125 MG in DEXTROSE 5% 100 ML IV SCH (01:50)
[2022-02-06 06:02] LABS: Hematocrit (blood only) 35.8 % (42-52); Hemoglobin 12.3 g/dL (14.0-18.0); Mean Corpuscular Hemoglobin 31.7 pg (25-34); Mean Corpuscular Hgb Conc 34.4 g/dL (32-36); Mean Corpuscular Volume 92.3 fL (80-100); Mean Platelet Volume 11.5 fL (7.4-10.4); Platelet Count 101 K/uL (130-400); RDW Coefficient of Variation 13.7 % (11.5-14.5); RDW Standard Deviation 45.6 fL (36.4-46.3); Red Blood Count 3.88 M/uL (4.7-6.1); White Blood Count 6.61 K/uL (4.8-10.8)
[2022-02-06] MEDS: oxyCODONE/ACETAMINOPHEN 5mg/325mg TAB PO PRN ×4 (06:04→22:58)
[2022-02-06 06:11] LABS: Basophils # (auto) 0.05 K/uL (0-0.2); Basophils % (auto) 0.8 %; Immature Granulocytes # (auto) 0.01 K/uL (0.00-0.02); Immature Granulocytes % (auto) 0.2 %; Lymphocytes % (auto) 13.6 %; Monocytes # (auto) 0.93 K/uL (0.11-0.59); Monocytes % (auto) 14.1 %; Neutrophils # (auto) 4.72 K/uL (1.4-6.5); Neutrophils % (auto) 71.3 %
[2022-02-06 06:22] LABS: BUN Creatinine Ratio 31.6 (10-20); Calcium 8.3 mg/dl (8.5-10.1); Creatinine Clr Calc Pharmacy 39.8 ml/min; Est GFR (African American) 70.5 ml/min; Est GFR (Non-African American) 60.8 ml/min; Potassium 3.9 mmol/L (3.5-5.1)
[2022-02-06] MEDS: APIXABAN 5 MG TABLET PO SCH ×2 (09:07→20:26)
[2022-02-06] MEDS: CYANOCOBALAMIN (B-12) 500 MCG TABLET PO SCH (09:08)
[2022-02-06] MEDS: PANTOprazole 40 MG TAB PO SCH (09:08)
[2022-02-06] MEDS: CALCIUM 600MG + VIT D 400 IU TAB PO SCH (09:08)
[2022-02-06] MEDS: MAGNESIUM OXIDE 400 MG TAB PO SCH (09:08)
[2022-02-06] MEDS: predniSONE 20 MG TAB PO SCH (09:08)
[2022-02-06] MEDS: MULTIVITAMIN TAB PO SCH (09:08)
[2022-02-06] MEDS: UMECLIDINIUM/VILANTEROL 62.5/25MCG 7 PUFFS/INHALER INH SCH (09:09)
[2022-02-06] MEDS: FLUTICASONE FUROATE 200MCG 14 PUFFS/INHALER INH SCH (20:25)
[2022-02-06] MEDS: ZOLPIDEM TARTRATE 5 MG TAB PO PRN (20:26)
[2022-02-07] MEDS: LEVALBUTEROL HCL 0.63 MG/3 ML NEB NEB SCH ×3 (00:23→12:51)
[2022-02-07] MEDS: cefTRIAXone SODIUM 2,000 MG in DEXTROSE 5% 50 ML IV SCH (01:08)
[2022-02-07] MEDS: dilTIAZem HCL 125 MG in DEXTROSE 5% 100 ML IV SCH (01:52)
[2022-02-07] MEDS: DOXYCYCLINE HYCLATE 100 MG in DEXTROSE 5% 100 ML IV SCH ×2 (01:53→15:23)
[2022-02-07] MEDS: oxyCODONE/ACETAMINOPHEN 5mg/325mg TAB PO PRN ×3 (06:15→16:18)
[2022-02-07 08:12] LABS: Hematocrit (blood only) 40.4 % (42-52); Hemoglobin 13.2 g/dL (14.0-18.0); Mean Corpuscular Hemoglobin 31.1 pg (25-34); Mean Corpuscular Hgb Conc 32.7 g/dL (32-36); Mean Corpuscular Volume 95.3 fL (80-100); Mean Platelet Volume 11.1 fL (7.4-10.4); Platelet Count 179 K/uL (130-400); RDW Coefficient of Variation 13.8 % (11.5-14.5); RDW Standard Deviation 48.4 fL (36.4-46.3); Red Blood Count 4.24 M/uL (4.7-6.1); White Blood Count 10.48 K/uL (4.8-10.8)
[2022-02-07 08:20] LABS: Calcium 8.8 mg/dl (8.5-10.1); Creatinine Clr Calc Pharmacy 45.3 ml/min; Est GFR (African American) 82.6 ml/min; Est GFR (Non-African American) 71.3 ml/min; Magnesium 2.1 mg/dl (1.7-2.4); Potassium 3.8 mmol/L (3.5-5.1)
--- NOTE | 2022-02-07 09:18 | XRay Report ---
XR chest 1V portable CLINICAL HISTORY: hypoxia. COMPARISON STUDY: 02/05/2022 TECHNIQUE: 1 view of the chest FINDINGS: Single frontal view of the chest demonstrates the heart to again be mildly enlarged and the aorta ath erosclerotic and ectatic. Very mild central vascular congestion remains present. The lungs are clear of alveolar opacities. There is no evidence for pleural effusion. There is no evidence of gross pulmo nary edema. There is no acute osseous pathology. IMPRESSION: 1. Mild central vascular congestion is again seen. ACT 112: Negative or not required by law. Electronically signed by: Dakota Godoy M.D. 02/07/2022 9:17 AM
[2022-02-07 09:23] LABS: Basophils # (auto) 0.02 K/uL (0-0.2); Basophils % (auto) 0.2 %; Immature Granulocytes # (auto) 0.03 K/uL (0.00-0.02); Immature Granulocytes % (auto) 0.3 %; Lymphocytes # (auto) 2.14 K/uL (1.2-3.4); Lymphocytes % (auto) 20.4 %; Monocytes # (auto) 1.23 K/uL (0.11-0.59); Monocytes % (auto) 11.7 %; Neutrophils # (auto) 7.06 K/uL (1.4-6.5); Neutrophils % (auto) 67.4 %
[2022-02-07] MEDS: UMECLIDINIUM/VILANTEROL 62.5/25MCG 7 PUFFS/INHALER INH SCH (09:45)
[2022-02-07] MEDS: APIXABAN 5 MG TABLET PO SCH ×2 (09:46→20:23)
[2022-02-07] MEDS: predniSONE 20 MG TAB PO SCH (09:46)
[2022-02-07] MEDS: MULTIVITAMIN TAB PO SCH (09:46)
[2022-02-07] MEDS: CALCIUM 600MG + VIT D 400 IU TAB PO SCH (09:46)
[2022-02-07] MEDS: CYANOCOBALAMIN (B-12) 500 MCG TABLET PO SCH (09:46)
[2022-02-07] MEDS: MAGNESIUM OXIDE 400 MG TAB PO SCH (09:46)
[2022-02-07] MEDS: PANTOprazole 40 MG TAB PO SCH (09:46)
[2022-02-07] MEDS ORDERED: METOPROLOL TARTRATE 50 MG TAB PO STA (13:37)
[2022-02-07] MEDS ORDERED: METOPROLOL TARTRATE 1 MG/ML VIAL IV ONE (14:01)
--- NOTE | 2022-02-07 14:06 | Hospitalist Progress Note ---
Date of Service February 07, 2022 Assessment & Plan (1) Anaplasmosis: Plan: Anaplasmosis Presented to the hospital with fever, chills, myalgias, tachycardia Serology positive for anaplasmosis Treated with doxycycline 100 mg IV twice daily. Ceftriaxone discontinued. Lyme testing negative. Clinically improved, myalgias have resolved, no recurrent fevers/chills Discontinue have poorly controlled A. fib as noted below (2) Atrial fibrillation with RVR: Plan: Atrial fibrillation with RVR, likely worsened in the setting of acute anaplasmosis Last echo as otherwise noted Patient with history of paroxysmal A. fib, was not anticoagulated for this previously after risk/benefits discussion with history of a GI bleed prior to 2020. Patient was placed on Cardizem drip on admission, home metoprolol was held Bridging back to home metoprolol dosing, rates have been adequately controlled on diltiazem however prefer not to use this long-term due to reduced ejection fraction Did discuss with cardiology, if inadequate rate control with metoprolol, may use digoxin for rate control. Caution dosing with history of Plaquenil use, monitor therapy and will have levels checked if required. Creatinine 1.0 at baseline, drug dosing 45, Administer 75% normal dose. Hemoglobin 13.2 from 12.3, no signs of bleeding, creatinine normal Goal mag 2.0, potassium 4.0 (3) Pulmonary emboli: Plan: Pulmonary emboli Admitting CTA with small pulmonary emboli in the second and third branches of right lower lobe. No radiologic evidence of heart strain. Small right pleural effusion, coronary artery calcifications. Central lobar emphysematous changes. Continue apixaban 10 mg by mouth twice daily, previously not anticoagulated (4) COPD (chronic obstructive pulmonary disease): Plan: -Changed to Xopenex every 6 hours due to A. 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 fib, normal LV thickness, normal LV cavity size, 40% ejection fraction, mild aortic stenosis, moderate mitral regurg, mild tricuspid regurg Chronic systolic heart failure well compensated, [facility]. [facility] recommendations to continue Toprol, patient did not tolerate DENVER/ARB including lisinopril and Cozaar in the past. Admission patient did have a uptrending troponin from 36-131 which then down trended to 123 and was felt to be due to demand ischemia Continue to follow, clinically without chest pain Continue Lasix 20 daily (6) Rheumatoid arthritis: Plan: Hold Plaqueni for now (7) Chronic kidney disease: Plan: Creatinine 1.0, creatinine clearance drug dosing 45 BMP daily If need to pursue digoxin above adjust for renal function, follow levels closely (8) Compression fracture: Plan: -Likely osteopenic fracture - Pain controlled and has not caused him any increase but he does note pain there -Needs to be followed up outpatient (9) Closed L1 vertebral fracture: Admission and Anticipated Discharge Date Admission Date: February 04, 2022 Subjective Patient seen at bedside. Reports he feels well, improved. Presented with fevers and aches and knows he "had a parasite from attack ". Has not had fevers/chills/sweats in the last 24 hours. Does not feel his heart racing, is aware that he has A. fib. No lightheadedness/dizziness. No chest pain, chest pressure. No nausea/vomiting/diarrhea at time of assessment. Reports his myalgias have greatly improved, and while he was short of breath coming in he feels this is also greatly improved and is not present today. Review of Systems Review of Systems: All systems reviewed & are unremarkable except as noted in Subjective Physical Exam Physical Exam: General: A&Ox3. NAD. Cooperative. Reading a book at bedside at time of assessment. HEENT: Atraumatic, normocephalic. And hearing grossly intact. Pulm: CTAB A&P. -wheezes, -rales, -rhonchi. Symmetrical chest rise. No increase in work of breathing. No respiratory distress. Cardiac: Regularly irregular, normal to tachycardic. Radial pulses intact and symmetrical. Abdominal: Nontender, nondistended, soft. BS present. Extremities: Warm, dry, no rash Results & Data Results & Data ([facility]) Vital Signs (Past 12 Hours) Vital Signs Temp Pulse Pulse Resp BP Pulse Ox 02/07/22 12:52 115 H 22 95 02/07/22 12:00 36.7 C 104 H 18 136/72 95 02/07/22 08:00 36.7 C 112 H 20 127/79 94 02/07/22 07:32 102 H 18 02/07/22 04:41 36.3 C L 83 16 98/58 L 89 L PG Care Time/CCT Total # of Minutes Spent Total Time Spent with Patient: Total time spent is greater than 50% in coordination of care (as documented) at patient's floor/unit and/or counseling patient: Coding Level of Care Code 35073 Subseq Hosp Care Lvl 3 Diagnoses Anaplasmosis A77.49 Atrial fibrillation with RVR I48.91 Pulmonary emboli I26.99 COPD (chronic obstructive pulmonary disease) J44.1 COPD type: COPD with acute exacerbation CHF (congestive heart failure) I50.9 Rheumatoid arthritis M06.9 Chronic kidney disease N18.9 Compression fracture Closed L1 vertebral fracture S32.019A Encounter type: initial encounter Fracture morphology: unspecified fracture morphology (1) COPD (chronic obstructive pulmonary disease) COPD type: COPD with acute exacerbation Qualified Code(s): J44.1 - Chronic obstructive pulmonary disease with (acute) exacerbation (2) Closed L1 vertebral fracture Encounter type: initial encounter Fracture morphology: unspecified fracture morphology Qualified Code(s): S32.019A - Unspecified fracture of first lumbar vertebra, initial encounter for closed fracture
[2022-02-07] MEDS ORDERED: LEVALBUTEROL HCL 0.63 MG/3 ML NEB NEB PRN (17:05)
[2022-02-07] MEDS: METOPROLOL SUCC 50MG EXT REL TAB PO SCH (20:23)
[2022-02-07] MEDS: POTASSIUM CHLORIDE CRTAB 20 MEQ TABCR PO SCH (20:23)
[2022-02-07] MEDS: FLUTICASONE FUROATE 200MCG 14 PUFFS/INHALER INH SCH (20:24)
[2022-02-07] MEDS: ZOLPIDEM TARTRATE 5 MG TAB PO PRN (21:27)
[2022-02-08] MEDS: DOXYCYCLINE HYCLATE 100 MG in DEXTROSE 5% 100 ML IV SCH ×2 (01:41→14:30)
[2022-02-08] MEDS: oxyCODONE/ACETAMINOPHEN 5mg/325mg TAB PO PRN ×5 (01:42→20:33)
[2022-02-08 07:40] LABS: Basophils # (auto) 0.02 K/uL (0-0.2); Basophils % (auto) 0.2 %; Eosinophils # (auto) 0.01 K/uL (0-0.5); Eosinophils % (auto) 0.1 %; Hematocrit (blood only) 39.8 % (42-52); Hemoglobin 12.7 g/dL (14.0-18.0); Immature Granulocytes # (auto) 0.04 K/uL (0.00-0.02); Immature Granulocytes % (auto) 0.4 %; Lymphocytes # (auto) 2.93 K/uL (1.2-3.4); Lymphocytes % (auto) 29.4 %; Mean Corpuscular Hemoglobin 30.9 pg (25-34); Mean Corpuscular Hgb Conc 31.9 g/dL (32-36); Mean Corpuscular Volume 96.8 fL (80-100); Mean Platelet Volume 10.5 fL (7.4-10.4); Monocytes # (auto) 1.03 K/uL (0.11-0.59); Monocytes % (auto) 10.3 %; Neutrophils # (auto) 5.95 K/uL (1.4-6.5); Neutrophils % (auto) 59.6 %; Platelet Count 233 K/uL (130-400); RDW Coefficient of Variation 13.9 % (11.5-14.5); RDW Standard Deviation 49.3 fL (36.4-46.3); Red Blood Count 4.11 M/uL (4.7-6.1); White Blood Count 9.98 K/uL (4.8-10.8)
[2022-02-08 08:19] LABS: BUN Creatinine Ratio 28.4 (10-20); Calcium 8.8 mg/dl (8.5-10.1); Creatinine Clr Calc Pharmacy 45.1 ml/min; Est GFR (African American) 80.6 ml/min; Est GFR (Non-African American) 69.6 ml/min; Potassium 4.6 mmol/L (3.5-5.1)
[2022-02-08] MEDS: APIXABAN 5 MG TABLET PO SCH ×2 (08:20→20:34)
[2022-02-08] MEDS: POTASSIUM CHLORIDE CRTAB 20 MEQ TABCR PO SCH ×2 (08:20→20:34)
[2022-02-08] MEDS: PANTOprazole 40 MG TAB PO SCH (08:20)
[2022-02-08] MEDS: CYANOCOBALAMIN (B-12) 500 MCG TABLET PO SCH (08:20)
[2022-02-08] MEDS: FUROSEMIDE 40 MG TAB PO SCH (08:20)
[2022-02-08] MEDS: MULTIVITAMIN TAB PO SCH (08:21)
[2022-02-08] MEDS: MAGNESIUM OXIDE 400 MG TAB PO SCH (08:21)
[2022-02-08] MEDS: CALCIUM 600MG + VIT D 400 IU TAB PO SCH (08:21)
[2022-02-08] MEDS: predniSONE 20 MG TAB PO SCH (08:21)
[2022-02-08] MEDS: UMECLIDINIUM/VILANTEROL 62.5/25MCG 7 PUFFS/INHALER INH SCH (08:21)
[2022-02-08] MEDS ORDERED: METOPROLOL TARTRATE 50 MG TAB PO SCH (09:00)
--- NOTE | 2022-02-08 17:33 | Hospitalist Progress Note ---
Date of Service February 08, 2022 Assessment & Plan (1) Anaplasmosis: Plan: Placement: Patient is globally weak and has had falls at home. He is able to ambulate on level plane although with easy fatigue and difficulty. Would likely benefit from rehab, patient and family would like to see if he could be placed for a short course of inpatient rehab. Insurance is [place] and is not open until Thursday, discussed with case management and will have referral placed for Thursday .Otherwise stable and doing well today. Doxycycline switched to p.o. Anaplasmosis Presented to the hospital with fever, chills, myalgias, tachycardia Serology positive for anaplasmosis Treated with doxycycline 100 mg twice daily. Ceftriaxone discontinued. Lyme testing negative. Clinically improved, myalgias have resolved, no recurrent fevers/chills Discontinue have poorly controlled A. fib as noted below (2) Atrial fibrillation with RVR: Plan: Atrial fibrillation with RVR, likely worsened in the setting of acute anaplasmosis Last echo as otherwise noted Patient with history of paroxysmal A. fib, was not anticoagulated for this previously after risk/benefits discussion with history of a GI bleed prior to 2020. Patient was placed on Cardizem drip on admission, home metoprolol was held Bridging back to home metoprolol dosing, rates have been adequately controlled on diltiazem however prefer not to use this long-term due to reduced ejection fraction Did discuss with cardiology, if inadequate rate control with metoprolol, may use digoxin for rate control. Caution dosing with history of Plaquenil use, monitor therapy and will have levels checked if required. Creatinine 1.0 at baseline, drug dosing 45, Administer 75% normal dose. Hemoglobin 13.2 from 12.3, no signs of bleeding, creatinine normal Goal mag 2.0, potassium 4.0 (3) Pulmonary emboli: Plan: Pulmonary emboli Admitting CTA with small pulmonary emboli in the second and third branches of right lower lobe. No radiologic evidence of heart strain. Small right pleural effusion, coronary artery calcifications. Central lobar emphysematous changes. Continue apixaban 10 mg by mouth twice daily, previously not anticoagulated (4) COPD (chronic obstructive pulmonary disease): Plan: -Changed to Xopenex every 6 hours due to A. 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 fib, normal LV thickness, normal LV cavity size, 40% ejection fraction, mild aortic stenosis, moderate mitral regurg, mild tricuspid regurg Chronic systolic heart failure well compensated, has been following with [facility]. Past [facility] recommendations to continue Toprol, patient did not tolerate DENVER/ARB including lisinopril and Cozaar in the past. Admission patient did have a uptrending troponin from 36-131 which then down trended to 123 and was felt to be due to demand ischemia Continue to follow, clinically without chest pain Continue Lasix 20 daily (6) Rheumatoid arthritis: Plan: Hold Plaqueni for now (7) Chronic kidney disease: Plan: Creatinine 1.0, creatinine clearance drug dosing 45 BMP daily If need to pursue digoxin above adjust for renal function, follow levels closely (8) Compression fracture: Plan: -Likely osteopenic fracture - Pain controlled and has not caused him any increase but he does note pain there -Needs to be followed up outpatient (9) Closed L1 vertebral fracture: Admission and Anticipated Discharge Date Admission Date: February 04, 2022 Subjective Seen at the bedside. Doing well. No fevers, chills, sweats, chest pain, chest pressure, lightheadedness, dizziness. Globally weak, lightly improved today compared to prior. No focal deficits. PT/OT Reevaluation pending. Discussed plan of care with patient and daughter by phone Review of Systems Review of Systems: All systems reviewed & are unremarkable except as noted in Subjective Physical Exam Physical Exam: General: A&Ox3. NAD. Cooperative. HEENT: Atraumatic, normocephalic. Vision and hearing grossly intact. Pulm: CTAB A&P. -wheezes, -rales, -rhonchi. Symmetrical chest rise. No increase in work of breathing. No respiratory distress. Cardiac: Regularly irregular, normal rate. Radial pulses intact and symmetrical. Abdominal: Nontender, nondistended, soft. BS present. Extremities: Warm, dry, no rash Results & Data Results & Data ([facility]) Vital Signs (Past 12 Hours) Vital Signs Temp Pulse Pulse Resp BP Pulse Ox 02/08/22 15:33 85 02/08/22 15:05 36.5 C 85 20 115/67 99 02/08/22 11:36 36.4 C L 86 18 135/77 99 02/08/22 09:29 85 02/08/22 08:00 96 02/08/22 07:42 36.5 C 88 20 141/71 H 97 PG Care Time/CCT Total # of Minutes Spent Total Time Spent with Patient: Total time spent is greater than 50% in coordination of care (as documented) at patient's floor/unit and/or counseling patient: Coding Level of Care Code 92017 Subseq Hosp Care Lvl 2 Diagnoses Anaplasmosis A77.49 Atrial fibrillation with RVR I48.91 Pulmonary emboli I26.99 COPD (chronic obstructive pulmonary disease) J44.1 COPD type: COPD with acute exacerbation CHF (congestive heart failure) I50.9 Rheumatoid arthritis M06.9 Chronic kidney disease N18.9 Compression fracture Closed L1 vertebral fracture S32.019A Encounter type: initial encounter Fracture morphology: unspecified fracture morphology (1) COPD (chronic obstructive pulmonary disease) COPD type: COPD with acute exacerbation Qualified Code(s): J44.1 - Chronic obstructive pulmonary disease with (acute) exacerbation (2) Closed L1 vertebral fracture Encounter type: initial encounter Fracture morphology: unspecified fracture morphology Qualified Code(s): S32.019A - Unspecified fracture of first lumbar vertebra, initial encounter for closed fracture
[2022-02-08] MEDS: DOXYCYCLINE HYCLATE 100 MG CAP PO SCH (18:19)
[2022-02-08] MEDS: ZOLPIDEM TARTRATE 5 MG TAB PO PRN (20:34)
[2022-02-08] MEDS: FLUTICASONE FUROATE 200MCG 14 PUFFS/INHALER INH SCH (20:35)
[2022-02-08] MEDS: METOPROLOL SUCC 50MG EXT REL TAB PO SCH (20:35)
[2022-02-09] MEDS: oxyCODONE/ACETAMINOPHEN 5mg/325mg TAB PO PRN ×4 (02:54→20:12)
[2022-02-09 06:00] LABS: Basophils # (auto) 0.01 K/uL (0-0.2); Basophils % (auto) 0.1 %; Eosinophils # (auto) 0.02 K/uL (0-0.5); Eosinophils % (auto) 0.2 %; Hematocrit (blood only) 38.9 % (42-52); Hemoglobin 12.4 g/dL (14.0-18.0); Immature Granulocytes # (auto) 0.05 K/uL (0.00-0.02); Immature Granulocytes % (auto) 0.5 %; Lymphocytes # (auto) 3.13 K/uL (1.2-3.4); Lymphocytes % (auto) 30.3 %; Mean Corpuscular Hemoglobin 30.9 pg (25-34); Mean Corpuscular Hgb Conc 31.9 g/dL (32-36); Mean Platelet Volume 10.3 fL (7.4-10.4); Monocytes # (auto) 1.12 K/uL (0.11-0.59); Monocytes % (auto) 10.8 %; Neutrophils % (auto) 58.1 %; Platelet Count 296 K/uL (130-400); RDW Coefficient of Variation 13.9 % (11.5-14.5); RDW Standard Deviation 49.8 fL (36.4-46.3); Red Blood Count 4.01 M/uL (4.7-6.1); White Blood Count 10.33 K/uL (4.8-10.8)
[2022-02-09 06:16] LABS: Calcium 8.6 mg/dl (8.5-10.1); Creatinine Clr Calc Pharmacy 42.4 ml/min; Est GFR (African American) 74.4 ml/min; Est GFR (Non-African American) 64.2 ml/min; Potassium 4.7 mmol/L (3.5-5.1)
--- NOTE | 2022-02-09 07:12 | Hospitalist Progress Note ---
Date of Service February 09, 2022 Assessment & Plan (1) Anaplasmosis: Plan: Placement: Patient is globally weak and has had falls at home. He is able to ambulate on level plane although easily fatigued, some difficulty, and hx of falls at a prior baseline improved from his current. Would likely benefit from rehab, patient and family would like to see if he could be placed for a short course of inpatient rehab. [facility] and [facility] not open until Thursday, discussed with case management and will have referral placed for Thursday. Otherwise stable and doing well. Pending placement referral Anaplasmosis Presented to the hospital with fever, chills, myalgias, tachycardia Serology positive for anaplasmosis - Lyme testing negative. Rocephin discontinued - Doxycycline 100mg twice daily PO, 10 day total course OR extended for at least 3 days post last fever if recurrent Clinically improved, myalgias have resolved, no recurrent fevers/chills (2) Atrial fibrillation with RVR: Plan: Atrial fibrillation with RVR, likely worsened in the setting of acute anaplasmosis Last echo as otherwise noted Patient with history of paroxysmal A. fib, was not anticoagulated for this previously after risk/benefits discussion with history of a GI bleed prior to 2020. Patient was placed on Cardizem drip on admission, home metoprolol was held Bridging back to home metoprolol dosing, rates have been adequately controlled on diltiazem however prefer not to use this long-term due to reduced ejection fraction Did discuss with cardiology, if inadequate rate control with metoprolol, may use digoxin for rate control. Caution dosing with history of Plaquenil use, monitor therapy and will have levels checked if required. Creatinine 1.0 at baseline, drug dosing 45, Administer 75% normal dose. Hemoglobin 13.2 from 12.3, no signs of bleeding, creatinine normal Goal mag 2.0, potassium 4.0 (3) Pulmonary emboli: Plan: Pulmonary emboli Admitting CTA with small pulmonary emboli in the second and third branches of right lower lobe. No radiologic evidence of heart strain. Small right pleural effusion, coronary artery calcifications. Central lobar emphysematous changes. Continue apixaban 10 mg by mouth twice daily, previously not anticoagulated (4) COPD (chronic obstructive pulmonary disease): Plan: -Changed to Xopenex every 6 hours due to A. 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 Resume home suppressive once doxycycline course complete (5) CHF (congestive heart failure): Plan: Plan: Compensated Echo 02/04/2021: A. fib, normal LV thickness, normal LV cavity size, 40% eject ion fraction, mild aortic stenosis, moderate mitral regurg, mild tricuspid regurg Chronic systolic heart failure well compensated, has been following with [place] [facility]. Past [place] recommendations to continue Toprol, patient did not tolerate DENVER/ARB including lisinopril and Cozaar in the past. Admission patient did have a uptrending troponin from 36-131 which then down trended to 123 and was felt to be due to demand ischemia Continue to follow, clinically without chest pain Continue Lasix 20 daily (6) Rheumatoid arthritis: Plan: Hold Plaquenil for now, resume after abx complete (7) Chronic kidney disease: Plan: Creatinine 1.0, creatinine clearance drug dosing 45 BMP daily If need to pursue digoxin above adjust for renal function, follow levels closely (8) Compression fracture: Plan: -Likely osteopenic fracture - Pain controlled and has not caused him any increase but he does note pain there -Needs to be followed up outpatient (9) Closed L1 vertebral fracture: Admission and Anticipated Discharge Date Admission Date: February 04, 2022 Subjective Seen at bedside. No change from yesterday. Afebrile overnight, no recurrent fevers. No chest pain, chest pressure, palpitations. Heart rate has been mostly in 80s overnight, continues to be well controlled. Was elevated slightly this morning with ambulation to the bathroom but returned to normal likely. Remains on 5 L nasal cannula, feels he is about his base line level of breathing. Pending placement evaluation tomorrow, no questions or concerns at bedside Review of Systems Review of Systems: All systems reviewed & are unremarkable except as noted in Subjective Physical Exam Physical Exam: General: A&Ox3. NAD. Cooperative. HEENT: Atraumatic, normocephalic. Vision and hearing grossly intact. Pulm: CTAB A&P. -wheezes, -rales, -rhonchi. Symmetrical chest rise. No increase in work of breathing. No respiratory distress. Cardiac: irregularly irregular, normal rate. Radial pulses intact and symmetrical. Abdominal: Nontender, nondistended, soft. BS present. Extremities: Warm, dry, no rash Results & Data Results & Data ([facility]) Vital Signs (Past 12 Hours) Vital Signs Temp Pulse Pulse Pulse Resp BP Pulse Ox 02/09/22 03:00 37.1 C 85 18 144/85 H 97 02/08/22 23:00 36.8 C 101 H 18 130/82 90 02/08/22 22:20 115 H PG Care Time/CCT Total # of Minutes Spent Total Time Spent with Patient: Total time spent is greater than 50% in coordination of care (as documented) at patient's floor/unit and/or counseling patient: Coding Level of Care Code 40795 Subseq Hosp Care Lvl 1 Diagnoses Anaplasmosis A77.49 Atrial fibrillation with RVR I48.91 Pulmonary emboli I26.99 COPD (chronic obstructive pulmonary disease) J44.1 COPD type: COPD with acute exacerbation CHF (congestive heart failure) I50.9 Rheumatoid arthritis M06.9 Chronic kidney disease N18.9 Compression fracture Closed L1 vertebral fracture S32.019A Encounter type: initial encounter Fracture morphology: unspecified fracture morphology (1) Closed L1 vertebral fracture Encounter type: initial encounter Fracture morphology: unspecified fracture morphology Qualified Code(s): S32.019A - Unspecified fracture of first lumbar vertebra, initial encounter for closed fracture (2) COPD (chronic obstructive pulmonary disease) COPD type: COPD with acute exacerbation Qualified Code(s): J44.1 - Chronic obstructive pulmonary disease with (acute) exacerbation
[2022-02-09] MEDS: CALCIUM 600MG + VIT D 400 IU TAB PO SCH (08:25)
[2022-02-09] MEDS: CYANOCOBALAMIN (B-12) 500 MCG TABLET PO SCH (08:25)
[2022-02-09] MEDS: POTASSIUM CHLORIDE CRTAB 20 MEQ TABCR PO SCH (08:25)
[2022-02-09] MEDS: APIXABAN 5 MG TABLET PO SCH ×2 (08:25→20:12)
[2022-02-09] MEDS: predniSONE 20 MG TAB PO SCH (08:25)
[2022-02-09] MEDS: PANTOprazole 40 MG TAB PO SCH (08:26)
[2022-02-09] MEDS: FUROSEMIDE 40 MG TAB PO SCH (08:26)
[2022-02-09] MEDS: MULTIVITAMIN TAB PO SCH (08:26)
[2022-02-09] MEDS: MAGNESIUM OXIDE 400 MG TAB PO SCH (08:26)
[2022-02-09] MEDS: UMECLIDINIUM/VILANTEROL 62.5/25MCG 7 PUFFS/INHALER INH SCH (08:27)
[2022-02-09] MEDS: DOXYCYCLINE HYCLATE 100 MG CAP PO SCH ×2 (10:43→20:12)
[2022-02-09] MEDS ORDERED: METOPROLOL TARTRATE 50 MG TAB PO STA (13:23)
[2022-02-09] MEDS ORDERED: DIGOXIN 250 MCG in SYRINGE 9 ML IV ONE (15:30)
[2022-02-09] MEDS: FLUTICASONE FUROATE 200MCG 14 PUFFS/INHALER INH SCH (20:11)
[2022-02-09] MEDS: ZOLPIDEM TARTRATE 5 MG TAB PO PRN (20:13)
[2022-02-09] MEDS: METOPROLOL SUCC 50MG EXT REL TAB PO SCH (20:45)
[2022-02-10] MEDS: oxyCODONE/ACETAMINOPHEN 5mg/325mg TAB PO PRN ×3 (02:16→20:39)
[2022-02-10 07:49] LABS: Hematocrit (blood only) 40.2 % (42-52); Hemoglobin 12.8 g/dL (14.0-18.0); Mean Corpuscular Hemoglobin 30.2 pg (25-34); Mean Corpuscular Hgb Conc 31.8 g/dL (32-36); Mean Corpuscular Volume 94.8 fL (80-100); Mean Platelet Volume 9.6 fL (7.4-10.4); Platelet Count 353 K/uL (130-400); RDW Coefficient of Variation 13.8 % (11.5-14.5); RDW Standard Deviation 47.9 fL (36.4-46.3); Red Blood Count 4.24 M/uL (4.7-6.1); White Blood Count 11.16 K/uL (4.8-10.8)
[2022-02-10 08:16] LABS: ALC (manual) 2.47 K/uL (1.2-3.4); ANC (manual) 7.41 K/uL (1.4-6.5); BUN Creatinine Ratio 30.2 (10-20); Calcium 8.8 mg/dl (8.5-10.1); Creatinine Clr Calc Pharmacy 39.9 ml/min; Eosinophils % (manual) 0.9 %; Est GFR (Non-African American) 59.6 ml/min; Lymphocytes # (manual) 2.47 K/uL (1.2-3.4); Lymphocytes % (manual) 22.1 %; Monocytes # (manual) 1.18 K/uL (0.11-0.59); Monocytes % (manual) 10.6 %; Neutrophils # (manual) 7.41 K/uL (1.4-6.5); Neutrophils % (manual) 66.4 %; Potassium 4.7 mmol/L (3.5-5.1)
[2022-02-10] MEDS: CALCIUM 600MG + VIT D 400 IU TAB PO SCH (09:14)
[2022-02-10] MEDS: APIXABAN 5 MG TABLET PO SCH ×2 (09:14→20:35)
[2022-02-10] MEDS: FUROSEMIDE 40 MG TAB PO SCH (09:15)
[2022-02-10] MEDS: PANTOprazole 40 MG TAB PO SCH (09:15)
[2022-02-10] MEDS: MAGNESIUM OXIDE 400 MG TAB PO SCH (09:15)
[2022-02-10] MEDS: DOXYCYCLINE HYCLATE 100 MG CAP PO SCH ×2 (09:15→20:35)
[2022-02-10] MEDS: CYANOCOBALAMIN (B-12) 500 MCG TABLET PO SCH (09:15)
[2022-02-10] MEDS: MULTIVITAMIN TAB PO SCH (09:15)
[2022-02-10] MEDS: UMECLIDINIUM/VILANTEROL 62.5/25MCG 7 PUFFS/INHALER INH SCH (09:16)
[2022-02-10] MEDS: predniSONE 5 MG TAB PO SCH (09:16)
--- NOTE | 2022-02-10 15:40 | Hospitalist Progress Note ---
Date of Service February 10, 2022 Assessment & Plan (1) Anaplasmosis: Plan: Placement: Patient is globally weak and has had falls at home. He is able to ambulate on level plane although easily fatigued, some difficulty, and hx of falls at a prior baseline improved from his current. Would likely benefit from rehab, patient and family would like to see if he could be placed for a short course of inpatient rehab. [facility] is [facility] and is not open until Thursday, discussed with case management and will have referral placed for Thursday. Otherwise stable and doing well. Pending placement referral Anaplasmosis Presented to the hospital with fever, chills, myalgias, tachycardia Serology positive for anaplasmosis - Lyme testing negative. Rocephin discontinued - Doxycycline 100mg twice daily PO, 10 day total course OR extended for at least 3 days post last fever if recurrent Clinically improved, myalgias have resolved, no recurrent fevers/chills (2) Atrial fibrillation with RVR: Plan: Atrial fibrillation with RVR, likely worsened in the setting of acute anaplasmosis Last echo as otherwise noted Patient with history of paroxysmal A. fib, was not anticoagulated for this previously after risk/benefits discussion with history of a GI bleed prior to 2020. Patient was placed on Cardizem drip on admission, home metoprolol was held Bridging back to home metoprolol dosing, rates have been adequately controlled on diltiazem however prefer not to use this long-term due to reduced ejection fraction Did discuss with cardiology, if inadequate rate control with metoprolol, may use digoxin for rate control. Caution dosing with history of Plaquenil use, monitor therapy and will have levels checked if required. Creatinine 1.0 at baseline, drug dosing 45, Administer 75% normal dose. Hemoglobin 13.2 from 12.3, no signs of bleeding, creatinine normal Goal mag 2.0, potassium 4.0 5/2: Overnight did have increased rate with RVR. Normalized following digoxin , however overall trend is very well controlled today subtherapeutic levels. Defer additional dig, if uptrending trial increase in metoprolol. Stable pending placement for on review above (3) Pulmonary emboli: Plan: Pulmonary emboli Admitting CTA with small pulmonary emboli in the second and third branches of right lower lobe. No radiologic evidence of heart strain. Small right pleural effusion, coronary artery calcifications. Central lobar emphysematous changes. Continue apixaban 10 mg by mouth twice daily, previously not anticoagulated (4) COPD (chronic obstructive pulmonary disease): Plan: -Changed to Xopenex every 6 hours due to A. 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 Resume home suppressive once doxycycline course complete (5) CHF (congestive heart failure): Plan: Plan: Compensated Echo 02/04/2021: A. fib, normal LV thickness, normal LV cavity size, 40% ejection fraction, mild aortic stenosis, moderate mitral regurg, mild tricuspid regurg Chronic systolic heart failure well compensated, has been following with [place] [facility]. Past [place] recommendations to continue Toprol, patient did not tolerate DENVER/ARB including lisinopril and Cozaar in the past. Admission patient did have a uptrending troponin from 36-131 which then down trended to 123 and was felt to be due to demand ischemia Continue to follow, clinically without chest pain Continue Lasix 20 daily (6) Rheumatoid arthritis: Plan: Hold Plaquenil for now, resume after abx complete (7) Chronic kidney disease: Plan: Creatinine 1.0, creatinine clearance drug dosing 45 BMP daily If need to pursue digoxin above adjust for renal function, follow levels closely (8) Compression fracture: Plan: -Likely osteopenic fracture - Pain controlled and has not caused him any increase but he does note pain there -Needs to be followed up outpatient (9) Closed L1 vertebral fracture: Admission and Anticipated Discharge Date Admission Date: February 04, 2022 Subjective Seen at bedside. Did have some increased heart rate with exertion yesterday, normalized following dose of dig. No symptoms overnight. Discussed between case management and family, patient family would like referral to [facility]. Referrals made, pending review. Patient has no chest pain, chest pressure, lightheadedness, dizziness, nausea, vomiting, diarrhea. Overall feels well Review of Systems Review of Systems: All systems reviewed & are unremarkable except as noted in Subjective Physical Exam Physical Exam: General: A&Ox3. NAD. Cooperative. HEENT: Atraumatic, normocephalic. Vision and hearing grossly intact. Pulm: CTAB A&P. -wheezes, -rales, -rhonchi. Symmetrical chest rise. No increase in work of breathing. No respiratory distress. Cardiac: irregularly irregular, normal rate. Radial pulses intact and symmetrical. Abdominal: Nontender, nondistended, soft. BS present. Extremities: Warm, dry, no rash Results & Data Results & Data ([facility]) Vital Signs (Past 12 Hours) Vital Signs Temp Pulse Resp BP Pulse Ox 02/10/22 12:07 36.3 C L 87 18 112/67 98 02/10/22 08:02 36.3 C L 85 16 164/87 H 93 PG Care Time/CCT Total # of Minutes Spent Total Time Spent with Patient: Total time spent is greater than 50% in coordination of care (as documented) at patient's floor/unit and/or counseling patient: Coding Level of Care Code 81647 Subseq Hosp Care Lvl 1 Diagnoses Anaplasmosis A77.49 Atrial fibrillation with RVR I48.91 Pulmonary emboli I26.99 COPD (chronic obstructive pulmonary disease) J44.1 COPD type: COPD with acute exacerbation CHF (congestive heart failure) I50.9 Rheumatoid arthritis M06.9 Chronic kidney disease N18.9 Compression fracture Closed L1 vertebral fracture S32.019A Encounter type: initial encounter Fracture morphology: unspecified fracture morphology (1) COPD (chronic obstructive pulmonary disease) COPD type: COPD with acute exacerbation Qualified Code(s): J44.1 - Chronic obstructive pulmonary disease with (acute) exacerbation (2) Closed L1 vertebral fracture Encounter type: initial encounter Fracture morphology: unspecified fracture morphology Qualified Code(s): S32.019A - Unspecified fracture of first lumbar vertebra, initial encounter for closed fracture
[2022-02-10] MEDS: METOPROLOL SUCC 50MG EXT REL TAB PO SCH (20:36)
[2022-02-10] MEDS: FLUTICASONE FUROATE 200MCG 14 PUFFS/INHALER INH SCH (20:36)
[2022-02-10] MEDS: ZOLPIDEM TARTRATE 5 MG TAB PO PRN (20:39)
[2022-02-11] MEDS: oxyCODONE/ACETAMINOPHEN 5mg/325mg TAB PO PRN ×3 (02:31→14:11)
[2022-02-11] MEDS: predniSONE 5 MG TAB PO SCH (07:54)
[2022-02-11] MEDS: MULTIVITAMIN TAB PO SCH (07:55)
[2022-02-11] MEDS: MAGNESIUM OXIDE 400 MG TAB PO SCH (07:55)
[2022-02-11] MEDS: FUROSEMIDE 40 MG TAB PO SCH (07:55)
[2022-02-11] MEDS: PANTOprazole 40 MG TAB PO SCH (07:55)
[2022-02-11] MEDS: APIXABAN 5 MG TABLET PO SCH (07:55)
[2022-02-11] MEDS: CALCIUM 600MG + VIT D 400 IU TAB PO SCH (07:55)
[2022-02-11] MEDS: DOXYCYCLINE HYCLATE 100 MG CAP PO SCH (07:55)
[2022-02-11] MEDS: CYANOCOBALAMIN (B-12) 500 MCG TABLET PO SCH (07:56)
[2022-02-11] MEDS: UMECLIDINIUM/VILANTEROL 62.5/25MCG 7 PUFFS/INHALER INH SCH (07:56)
--- NOTE | 2022-02-11 15:41 | Discharge Summary ---
Date of Service February 11, 2022 Admission HPI Per Admitting Provider 81 YOM with medical history of: COPD (emphysema on 5L home oxygen therapy), diverticulosis, multiple back surgeries- laminectomy and kyphoplasty, DJD, afib, aortic stenosis, anxiety, insomnia, CKD III, GERD, BPH, Osteopetrosis, RA (hydrochloroquine) normally follows at the [facility]. who was admitted at this facility from 02/02-02/03 because of dyspnea, started after having stir-short that was cooked at home- then about 1 hour after eating he started to feel achy, tired, and having some abdominal discomfort followed by nausea. This progressed to vomiting x2 about 1.5-2 hours after eating. I examined the patient all her sy mptoms was resolved. His chest x-ray was unremarkable and his oxygen requirement was at the baseline, patient was afebrile and did not have any respiratory symptoms the next day therefore patient was discharged on Augmentin for possible mild aspiration pneumonitis versus mild bronchitis given his history of COPD. He was discharged home on 02/03 however apparently at night patient developed chills fever . Initial work-up in the ER showed small PE in the right lower lobe. Moreover, her serology work-up during the prior admission showed his Anaplasma smear is positive. Principal Diagnosis Anaplasmosis PE Discharge Exam General: A&Ox3. NAD. Cooperative. HEENT: Atraumatic, normocephalic. Vision and hearing grossly intact. Pulm: CTAB A&P. -wheezes, -rales, -rhonchi. Symmetrical chest rise. No increase in work of breathing. No respiratory distress. Cardiac: irregularly irregular, normal rate. Radial pulses intact and symmetrical. Abdominal: Nontender, nondistended, soft. BS present. Extremities: Warm, dry, no rash Discharge Data Allergies Allergy/AdvReac Type Severity Reaction Status Date / Time No Known Allergies Allergy Verified 02/04/22 12:06 Consultations 02/04/22 14:20 ED Decision to Admit Stat Ordered Studies 02/04/22 10:24 CT abd pelvis IV con only Stat CT angio chest PE protocol Stat CT head/brain wo con Stat Hospital Course (1) Anaplasmosis: Placement: Patient is globally weak and has had falls at home. He is able to ambulate on level plane although easily fatigued, some difficulty, and hx of falls at a prior baseline improved from his current. Would likely benefit from rehab, patient and family would like to see if he could be placed for a short course of inpatient rehab. Pt clinically improved with good strength, on PT re- eval was recommended for home. DCed home with HH PT. To do as outpatient 1. Complete 10-day course of doxycycline 100 mg p.o. twice daily for anaplasmosis 2. Routine follow-up to PCP. 3. Follow-up heart rate check. Patient had adequate rate control day of discharge with metoprolol monotherapy, digoxin was briefly used during admission with good response however following an initial dose this was subsequently not required and deferred as patient clinically improved with improvement of his anaplasmosis symptoms. 4. Continued anticoagulation with apixaban for PE. Patient did complete 10 mg twice daily start and was discharged to continue 5 mg twice daily. No signs of bleeding during admission. Anaplasmosis Presented to the hospital with fever, chills, myalgias, tachycardia Serology positive for anaplasmosis - Lyme testing negative. Rocephin discontinued - Doxycycline 100mg twice daily PO, 10 day total course OR extended for at least 3 days post last fever if recurrent Clinically improved, myalgias have resolved, no recurrent fevers/chills (2) Atrial fibrillation with RVR: Atrial fibrillation with RVR, likely worsened in the setting of acute anaplasmosis Last echo as otherwise noted Patient with history of paroxysmal A. fib, was not anticoagulated for this previously after risk/benefits discussion with history of a GI bleed prior to 2020. Patient was placed on Cardizem drip on admission, home metoprolol was held Bridging back to home metoprolol dosing, rates have been adequately controlled on diltiazem however prefer not to use this long-term due to reduced ejection fraction Did discuss with cardiology, if inadequate rate control with metoprolol, may use digoxin for rate control. Caution dosing with history of Plaquenil use, monitor therapy and will have levels checked if required. Creatinine 1.0 at baseline, drug dosing 45, Administer 75% normal dose. Hemoglobin 13.2 from 12.3, no signs of bleeding, creatinine normal Goal mag 2.0, potassium 4.0 (3) Pulmonary emboli: Pulmonary emboli Admitting CTA with small pulmonary emboli in the second and third branches of right lower lobe. No radiologic evidence of heart strain. Small right pleural effusion, coronary artery calcifications. Central lobar emphysematous changes. Continue apixaban 10 mg by mouth twice daily, previously not anticoagulated (4) COPD (chronic obstructive pulmonary disease): -Changed to Xopenex every 6 hours due to A. 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 Resume home suppressive once doxycycline course complete (5) CHF (congestive heart failure): Plan: Compensated Echo 02/04/2021: A. fib, normal LV thickness, normal LV cavity size, 40% ejection fraction, mild aortic stenosis, moderate mitral regurg, mild tricuspid regurg Chronic systolic heart failure well compensated, has been following with [facility]. Past [place] recommendations to continue Toprol, patient did not tolerate DENVER/ARB including lisinopril and Cozaar in the past. Admission patient did have a uptrending troponin from 36-131 which then down trended to 123 and was felt to be due to demand ischemia Continue to follow, clinically without chest pain Continue Lasix 20 daily (6) Rheumatoid arthritis: Hold Plaquenil for now, resume after abx complete (7) Chronic kidney disease: Creatinine 1.0, creatinine clearance drug dosing 45 BMP daily If need to pursue digoxin above adjust for renal function, follow levels closely (8) Compression fracture: -Likely osteopenic fracture - Pain controlled and has not caused him any increase but he does note pain there -Needs to be followed up outpatient (9) Closed L1 vertebral fracture: Total Time Total Time Spent Total Time Spent (In Minutes): Time spend day of discharge 45 minutes including direct patient care, documentation, review of labs and images, and coordination of care. Discharge Plan Discharge Items Patient Disposition: Home - Home Health Services Reason For Visit: PULMONARY EMBOLISIM, ANAPLASMOSIS Discharge Diagnosis: Anaplasmosis Atrial fibrillation with rapid ventricular rate Activity: Per Instructions section Non-emergency contact: Primary Care Provider Call non-emergency contact if: you have any medication questions, your symptoms worsen, your pain is not controlled and you have a fever Follow-up/Referrals: Paulette Johnson PA-C [Primary Care Provider] - Diet: Heart Healthy Addtl Attending Provider Instructions: You were seen in the hospital and were found to have an infection with a tickborne illness called anaplasmosis. You were also found to have pulmonary emboli on your CAT scan, and during admission you experienced an abnormal heart rate called atrial fibrillation with RVR which required various medications for control. Your heart rate was normal at time of discharge. Your strength was improving over the course of your admission. It was initially recommended to look into rehab, physical therapy reevaluated you prior to discharge and you had had improved strength and this was no longer recommended. You recommended for discharge home with home health physical therapy. You have been started on an antibiotic to treat anaplasmosis, doxycycline. Please take doxycycline 100 mg by mouth twice daily for 7 days to complete a total of 10 days of treatment. This medication can upset the stomach, please take this with a full glass of water and you may also take Pepcid [id number] to help with stomach discomfort. This medication will also make your skin more sensitive to sunlight/sunburn, please avoid prolonged direct sun exposure while on this antibiotic. Please do not take your azithromycin while taking doxycycline as they both cover for similar organisms. You may resume your home azithromycin dosing once your doxycycline dose is complete. You are noted to have blood clots during admission. You are started on a blood thinner, apixaban. Please take apixaban 5mg by mouth twice daily when you return home. A blood thinner will make it easier to bleed. For a small cut apply firm direct pressure for 10 minutes without checking the wound. For any wound that does not stop bleeding, or any moderately sized or other concerning injury please seek prompt medical evaluation. Your heart rate was very high during admission due to A. fib with a rapid ventricular response. This can cause low blood pressure, lightheadedness, dizziness, and other serious effects. You are initially started on a medication called digoxin, however after an initial dose your heart rate was well controlled on metoprolol alone. You were discharged to continue metoprolol succinate 100 mg p.o. nightly. If you experience a recurrent high heart rate please seek medical reevaluation. If you develop any new or worsening symptoms including fever, chills, sweats, chest pain, chest pressure, difficulty breathing, uncontrolled nausea/vomiting, rash, wheezing, passing out or nearly passing out, bleeding, black/bloody bowel movements, or other new or concerning symptoms please call your primary care physician, or call 911 for re-evaluation in the emergency department if you are very concerned. Pending Studies at Discharge: No Stand-Alone Forms: [facility], Smoking Cessation Medications and DC Order Prescriptions: New doxycycline hyclate 100 mg Capsule 100 mg PO BID 7 Days Qty: 14 RF: 0 Eliquis 5 mg Tablet 5 mg PO BID 30 Days Qty: 60 RF: 0 Continued magnesium oxide 420 mg tablet 420 mg PO QAM RF: 0 Stiolto Respimat 2.5-2.5 mcg/actuation mist 2 puff inhalation QAM RF: 0 multivitamin Tablet 1 tab PO QAM RF: 0 metoprolol succinate 100 mg Tablet Extended Release 24 Hr 100 mg PO HS RF: 0 prednisone 5 mg Tablet 5 mg PO QAM RF: 0 oxycodone-acetaminophen [Percocet] 5-325 mg Tablet 1 tab PO QID PRN (Reason: mod-severe pain) RF: 0 tamsulosin 0.4 mg Capsule 0.4 mg PO HS RF: 0 pantoprazole 40 mg Tablet,Delayed Release (Dr/Ec) 40 mg PO QAM RF: 0 furosemide 20 mg Tablet 20 mg PO QAM RF: 0 hydroxychloroquine 200 mg Tablet 200 mg PO QAM RF: 0 hydroxyzine HCl 10 mg Tablet 10 mg PO BID PRN (Reason: Anxiety) RF: 0 calcium carbonate-vitamin D3 [Calcium 500 + D] 500 mg(1,250mg) -200 unit Tablet 1 tab PO QAM RF: 0 mometasone 220 mcg/ actuation (60) Aerosol Powdr Breath Activated 1 inh INHALATION HS RF: 0 olodaterol 2.5 mcg/actuation Mist 2.5 mcg INHALATION DAILY PRN (Reason: Adequate Ventilation) RF: 0 azithromycin 250 mg Tablet 250 mg PO 3XWK RF: 0 nitroglycerin 0.4 mg Tablet, Sublingual 0.4 mg sublingual UD PRN (Reason: Chest Pain) RF: 0 naloxone [Narcan] 4 mg/actuation [place],Non-Aerosol 4 mg INTRANASAL UD PRN (Reason: PAIN MEDICATION OVERLOAD) RF: 0 cyanocobalamin (vitamin B-12) 1,000 mcg Capsule 1,000 mcg PO QAM RF: 0 albuterol sulfate 90 mcg/actuation Hfa Aerosol Inhaler 1 inh INHALATION QID PRN (Reason: Shortness Of Breath Or Wheezing) RF: 0 Discontinued amoxicillin-pot clavulanate 875-125 mg tablet 1 tab PO BID Qty: 10 RF: 0 Discharge Orders: Discharge Order (Routine); Ordered 02/11/22 Ordered By: Param Carter Admission Data Admit Date/Time: 02/04/22 14:52 Attending Provider: Param Carter Admit Provider: Charlie Reyes Primary Care Provider: Paulette Johnson Other Providers: [facility] ; Charlie Reyes ; [facility] ; Felix Hernandez [facility] Other Interventions: Discharge Summary Assessment (RN) Last Done: 02/11/22 15:17 Coding Level of Care Code D/C DAY MANAGEMENT >30 MINS Diagnoses Anaplasmosis A77.49 Atrial fibrillation with RVR I48.91 Pulmonary emboli I26.99 COPD (chronic obstructive pulmonary disease) J44.1 COPD type: COPD with acute exacerbation CHF (congestive heart failure) I50.9 Rheumatoid arthritis M06.9 Chronic kidney disease N18.9 Compression fracture Closed L1 vertebral fracture S32.019A Encounter type: initial encounter Fracture morphology: unspecified fracture morphology
== END 2022-02-11 17:08 | disposition home health service (06) | DRG 176 ==
LOC: ED 09:33 → 3W 14:52 → SUATTDRO 14:52 → 3W 16:28 → 2N 22:15 → 2S 02-05 15:35
DX: M06.9 Rheumatoid arthritis, unspecified; I26.99 Other pulmonary embolism without acute cor pulmonale; H40.9 Unspecified glaucoma; Z99.81 Dependence on supplemental oxygen; J44.9 Chronic obstructive pulmonary disease, unspecified; I50.22 Chronic systolic (congestive) heart failure; R79.89 Other specified abnormal findings of blood chemistry; Z87.891 Personal history of nicotine dependence; J96.11 Chronic respiratory failure with hypoxia; I13.0 Hypertensive heart and chronic kidney disease with heart failure and stage 1 through stage 4 chronic kidney disease, or unspecified chronic kidney disease; A79.82 Anaplasmosis [A. phagocytophilum]; R29.6 Repeated falls; N18.30 Chronic kidney disease, stage 3 unspecified; M84.68XA Pathological fracture in other disease, other site, initial encounter for fracture; N40.0 Benign prostatic hyperplasia without lower urinary tract symptoms; J90 Pleural effusion, not elsewhere classified; I48.91 Unspecified atrial fibrillation

== ENCOUNTER 2022-03-19 14:18 | Inpatient (IN) ==
[2022-03-19] MEDS ORDERED: SODIUM CHLORIDE 0.9% 1000ML 500 ML IV ONE (14:28)
--- NOTE | 2022-03-19 15:29 | XRay Report ---
SINGLE VIEW CHEST CLINICAL HISTORY: Sepsis. FINDINGS: An AP, portable, upright chest radiograph is compared to study dated 02/07/2022 and correlat ed with chest CT dated 02/04/2022. The examination is degraded by portable technique and apical lordot ic positioning. The heart is enlarged noting atherosclerotic calcification and uncoiling of the thora cic aorta. Enlargement of the central pulmonary arteries suggests pulmonary artery hypertension. Adva nced emphysema and chronic interstitial thickening is similar to previous. Foci of parenchymal scarri ng are seen throughout both lungs. No airspace consolidation or large pleural effusion is identified. No pneumothorax is seen. The skeletal structures are osteopenic. There are thoracic compression defo rmities with evidence of previous vertebroplasty. IMPRESSION: Cardiomegaly and advanced emphysema with no acute cardiopulmonary abnormality identified. ACT 112: Negative or not required by law. Electronically signed by: Dawson Smith M.D. 03/19/2022 3:28 PM
[2022-03-19 15:35] LABS: Basophils # (auto) 0.01 K/uL (0-0.2); Basophils % (auto) 0.2 %; Eosinophils # (auto) 0.09 K/uL (0-0.5); Eosinophils % (auto) 1.4 %; Hematocrit (blood only) 38.8 % (42-52); Hemoglobin 12.3 g/dL (14.0-18.0); Immature Granulocytes # (auto) 0.02 K/uL (0.00-0.02); Immature Granulocytes % (auto) 0.3 %; Lymphocytes # (auto) 1.23 K/uL (1.2-3.4); Lymphocytes % (auto) 18.7 %; Mean Corpuscular Hemoglobin 29.8 pg (25-34); Mean Corpuscular Hgb Conc 31.7 g/dL (32-36); Mean Corpuscular Volume 93.9 fL (80-100); Mean Platelet Volume 10.4 fL (7.4-10.4); Monocytes # (auto) 0.96 K/uL (0.11-0.59); Monocytes % (auto) 14.6 %; Neutrophils # (auto) 4.27 K/uL (1.4-6.5); Neutrophils % (auto) 64.8 %; Platelet Count 208 K/uL (130-400); RDW Coefficient of Variation 13.4 % (11.5-14.5); RDW Standard Deviation 46.4 fL (36.4-46.3); Red Blood Count 4.13 M/uL (4.7-6.1); White Blood Count 6.58 K/uL (4.8-10.8)
[2022-03-19 15:48] LABS: Partial Thromboplastin Ratio 1.2; Partial Thromboplastin Time 34.2 Seconds (21.0-31.0); Prothrombin Time 10.6 Seconds (9.0-12.0)
[2022-03-19 16:07] LABS: Alanine Aminotransferase 16 U/L (7-52); Albumin Globulin Ratio 1.4 (0.9-2); Alkaline Phosphatase 54 U/L (34-104); Anion Gap 8 (3-11); BUN Creatinine Ratio 25.2 (10-20); Bilirubin,Total 0.6 mg/dl (0.2-1.0); Blood Urea Nitrogen 40 mg/dl (6-23); Calcium 8.9 mg/dl (8.5-10.1); Carbon Dioxide 30 mmol/L (21-32); Chloride 97 mmol/L (98-107); Creatinine Clr Calc Pharmacy 26.9 ml/min; Est GFR (African American) 47.2 ml/min; Est GFR (Non-African American) 40.7 ml/min; Globulin 2.8 gm/dl (2.5-4.0); Glucose 88 mg/dl (70-99(Fasting)); Magnesium 2.3 mg/dl (1.7-2.4); Sodium 135 mmol/L (136-145); Total Protein 6.8 gm/dl (6.0-8.3); Troponin I High Sensitivity 15.3 pg/ml (0-20)
[2022-03-19 16:33] LABS: Base Excess VBG 6.9 mEq/L; HCO3 VBG 33 mmol/L; PCO2 VBG 53 mmHg (38-50); PO2 VBG 17 mmHg; pH VBG 7.41 (7.36-7.41)
[2022-03-19 16:36] LABS: Oxygen Saturation VBG < 60.0 %
--- NOTE | 2022-03-19 16:49 | Emergency Department Note ---
History of Present Illness General Chief complaint: Shortness of Breath/Dyspnea Stated complaint: LOW O2, COUGH, POST COVID Time Seen by Provider: 03/19/22 14:28 History of Present Illness Provider complaint: Cough shortness of breath headache Onset (ago): week(s) 1 Maximum Pain Intensity: 4 Associated symptoms: + cough, + headaches and + shortness of breath; no chest pain or no fever/chills 81-year-old male with history of A. fib on Eliquis as well as CHF COPD who is on 4 L oxygen continuously presents emergency department for cough shortness of breath and headache. Patient states his symptoms are gone for the last week. No recent falls. No chest pain. No hemoptysis. Patient was diagnosed with COVID on March 08. Patient's home health care nurse referred the patient to the emergency department today because the home health care nurse felt that the patient was pale and had low blood pressure. Home Medications Medication Instructions Recorded Confirmed Type calcium carbonate 500 mg-vitamin 1 tab PO QAM 01/16/21 03/19/22 History D3 5 mcg (200 unit) tablet (Calcium 500 + D) furosemide 20 mg tablet 20 mg PO QAM 01/16/21 03/19/22 History hydroxychloroquine 200 mg tablet 200 mg PO QAM 01/16/21 03/19/22 History hydroxyzine HCl 10 mg tablet 10 mg PO Q12 PRN 01/16/21 03/19/22 History metoprolol succinate 100 mg 100 mg PO HS 01/16/21 03/19/22 History tablet,extended release 24 hr mometasone 1 inh INHALATION DAILY 01/16/21 03/19/22 History oxycodone-acetaminophen 5 mg-325 1 tab PO QID PRN 01/16/21 03/19/22 History mg tablet (Percocet) pantoprazole 40 mg tablet,delayed 40 mg PO AMPM 01/16/21 03/19/22 History release prednisone 5 mg tablet 5 mg PO DAILY 01/16/21 03/19/22 History tamsulosin 0.4 mg capsule 0.4 mg PO HS 01/16/21 03/19/22 History multivitamin 1 tab PO QAM 03/15/21 03/19/22 History tiotropium 2.5 mcg-olodaterol 2.5 2 puff INHALATION DAILY 03/15/21 03/19/22 History mcg/actuation mist for inhalation (Stiolto Respimat) azithromycin 250 mg tablet 250 mg PO 3XWK 05/09/21 03/19/22 History cyanocobalamin (vitamin B-12) 1,000 mcg PO QAM 05/09/21 03/19/22 History 1,000 mcg capsule naloxone 4 mg/actuation nasal 4 mg INTRANASAL UD PRN 05/09/21 03/19/22 History spray (Narcan) nitroglycerin 0.4 mg sublingual 0.4 mg SUBLINGUAL UD PRN 05/09/21 03/19/22 History tablet magnesium oxide 420 mg tablet 420 mg PO QAM 09/11/21 03/19/22 History albuterol sulfate 90 mcg/actuation 1 inh INHALATION QID PRN 02/04/22 03/19/22 History aerosol inhaler amitriptyline 25 mg tablet 25 mg PO HS 03/19/22 03/19/22 History apixaban 5 mg tablet (Eliquis) 5 mg PO Q12 03/19/22 03/19/22 History aspirin 81 mg tablet,delayed 81 mg PO QAM 03/19/22 03/19/22 History release cholecalciferol (vitamin D3) 50 50 mcg PO DAILY 03/19/22 03/19/22 History mcg (2,000 unit) tablet (Vitamin D3) fluticasone propionate 50 2 spray INTRANASAL DAILY 03/19/22 03/19/22 History mcg/actuation nasal spray,suspension ipratropium 0.5 mg-albuterol 3 mg 3 ml INHALATION QID PRN 03/19/22 03/19/22 History (2.5 mg base)/3 mL nebulization soln Allergies Allergy/AdvReac Type Severity Reaction Status Date / Time No Known Allergies Allergy Verified 03/19/22 16:01 Past Med/Surg History Medical History A-fib Anxiety and depression BPH (benign prostatic hyperplasia) Chronic kidney disease STAGE 3 COPD (chronic obstructive pulmonary disease) Degenerative disc disease Emphysema of lung Glaucoma History of restless legs syndrome Hx of gastric ulcer Hypertension Leaky heart valve FOLLOWS DR. Layne ([facility]) On home oxygen therapy 4-5L [place] O2 CONT. Pernicious anemia HX OF Poor circulation "IN FINGERS" PER DAUGHTER Rheumatoid arthritis Sciatica Surgical History H/O eye surgery LASER FOR GLAUCOMA History of colonoscopy History of esophagogastroduodenoscopy (EGD) History of herniorrhaphy History of kyphoplasty History of lumbar laminectomy History of nasal septoplasty History of tonsillectomy and adenoidectomy History of tooth extraction Family History Other Family history non-contributory No family history of adverse response to anesthesia Denies family history of Kidney disease Social History Smoking Status: Former smoker Cigarettes Per Day: "1 pack a day during the war". Patient states they were in his rations.; Second Hand Exposure: No; Hx Alcohol Use: No Hx Substance Use: No Preferred Language: Tajik Communication Ability: Effective Planer Operator Required: No Beliefs That Will Affect Care: None Current Living Situation: Family Current Living Situation Comment: Lives with Daughter and Son in Law. 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 Feels Safe at Home: Yes Assistive Devices: Cane, Oxygen - Continuous and Walker Review of Systems A total of 10 systems reviewed and were otherwise negative Physical Exam Vital Signs Vital Signs - 24 hr 03/19/22 14:22 03/19/22 15:05 03/19/22 15:42 Temperature 36.3 C L Temperature Source Temporal Artery Scan Pulse Rate 96 H 85 86 Respiratory Rate 22 16 16 Respiratory Effort / Characteristics Non-Labored Spontaneous Respiratory Depth Normal Respiratory Pattern Regular Blood Pressure 87/59 L 109/65 104/63 Blood Pressure Mean 68 79 76 Pulse Oximetry 90 93 93 Oxygen Delivery Method Nasal Cannula Nasal Cannula Nasal Cannula Oxygen Flow Rate 4 4 4 Sepsis Recent Fever Within 48 Hours No Sepsis New/Unexplained Change in Mental Status No Sepsis Action Taken by Nursing No Action Required 03/19/22 15:51 03/19/22 16:08 03/19/22 16:31 Temperature Temperature Source Pulse Rate 87 88 Respiratory Rate 17 17 Respiratory Effort / Characteristics Non-Labored Spontaneous Respiratory Depth Normal Respiratory Pattern Regular Blood Pressure 113/65 121/55 L Blood Pressure Mean 81 77 Pulse Oximetry 93 90 92 Oxygen Delivery Method Nasal Cannula Nasal Cannula Nasal Cannula Oxygen Flow Rate 4 4 4 Sepsis Recent Fever Within 48 Hours Sepsis New/Unexplained Change in Mental Status Sepsis Action Taken by Nursing 03/19/22 16:45 03/19/22 17:15 03/19/22 17:30 Temperature Temperature Source Pulse Rate 89 87 87 Respiratory Rate 20 17 17 Respiratory Effort / Characteristics Respiratory Depth Respiratory Pattern Blood Pressure 126/63 115/75 111/80 Blood Pressure Mean 84 88 90 Pulse Oximetry 92 93 92 Oxygen Delivery Method Nasal Cannula Nasal Cannula Nasal Cannula Oxygen Flow Rate 4 4 4 Sepsis Recent Fever Within 48 Hours Sepsis New/Unexplained Change in Mental Status Sepsis Action Taken by Nursing 03/19/22 17:43 Temperature Temperature Source Pulse Rate Respiratory Rate Respiratory Effort / Characteristics Non-Labored Spontaneous Respiratory Depth Respiratory Pattern Blood Pressure Blood Pressure Mean Pulse Oximetry 92 Oxygen Delivery Method Nasal Cannula Oxygen Flow Rate 4 Sepsis Recent Fever Within 48 Hours Sepsis New/Unexplained Change in Mental Status Sepsis Action Taken by Nursing Physical Exam GENERAL: He is oriented to person, place, and time. He appears well-developed and well-nourished. He does not appear distressed. HENT: Exam performed. - Head: Normocephalic and atraumatic. - Right Ear: External ear normal. No mastoid tenderness. - Left Ear: External ear normal. No mastoid tenderness. - Mouth/Throat: The oropharynx is clear and moist. No trismus in the jaw. No dental abscesses or uvula swelling. No oropharyngeal exudate or tonsillar abscesses. EYES: Conjunctivae and EOM are normal. Pupils are equal, round, and reactive to light. Right eye exhibits no discharge. Left eye exhibits no discharge. No scleral icterus. NECK: Normal range of motion. Neck supple. No JVD present. No spinous process tenderness present. No carotid bruit present. No rigidity. No tracheal deviation and normal range of motion present. No Brudzinski's sign and no Kernig's sign noted. CV: Normal rate, irregular rhythm, normal heart sounds and intact distal pulses. There is no peripheral edema. Palpable radial pulses bue. PULM/CHEST: Diminished breath sounds bilaterally ABD: The abdomen is soft. Bowel sounds are normal. He has no distension. No mass is present. There is no tenderness. MUSC/SKEL: Normal range of motion. There is no peripheral edema, tenderness or deformity. LYMPH: No cervical adenopathy. Course Course 1428: The patient was evaluated in room A10. A complete history and physical exam was performed Cardiac monitoring: An order was placed for continuous cardiac monitoring. The monitor shows a rate of 80 with sinus rhythm 1801: Vital signs stable. Labs within normal limits, patient's creatinine is at baseline. No leukocytosis. Lactic acid within normal limits. VBG within normal limits. Cardiac enzymes within normal limits. Chest x-ray and CT imaging of the head within normal limits. Patient was told that he can be discharged home with antitussives however the patient and his daughter at bedside state they do not feel comfortable going home and are requesting to be admitted to the hospital[facility] and will evaluate the patient. Administered Medications Discontinued Medications Sodium Chloride (Nss 1000ml) 500 mls @ 999 mls/hr IV .Q31M ONE Stop: 03/19/22 14:58 Last Admin: 03/19/22 15:28 Dose: Not Given Documented by: [id number] Medical Decision Making Laboratory Data Result diagrams: 03/19/22 15:04 03/19/22 15:04 Lab Results 03/19/22 03/19/22 03/19/22 Range/Units 15:04 15:04 15:04 WBC 6.58 (4.8-10.8) K/uL RBC 4.13 L (4.7-6.1) M/uL Hgb 12.3 L (14.0-18.0) g/dL POC Hgb (14.0-18.0) g/dl Hct 38.8 L (42-52) % POC Hct (42-52) % MCV 93.9 (80-100) fL MCH 29.8 (25-34) pg MCHC 31.7 L (32-36) g/dL RDW Std Deviation 46.4 H (36.4-46.3) fL RDW Coeff of Nithya 13.4 (11.5-14.5) % Plt Count 208 (130-400) K/uL MPV 10.4 (7.4-10.4) fL Immature Gran % (Auto) 0.3 % Neut % (Auto) 64.8 % Lymph % (Auto) 18.7 % [place] % (Auto) 14.6 % Eos % (Auto) 1.4 % Baso % (Auto) 0.2 % Neut # (Auto) 4.27 (1.4-6.5) K/uL Lymph # (Auto) 1.23 (1.2-3.4) K/uL [place] # (Auto) 0.96 H (0.11-0.59) K/uL Eos # (Auto) 0.09 (0-0.5) K/uL Baso # (Auto) 0.01 (0-0.2) K/uL Immature Gran # (Auto) 0.02 (0.00-0.02) K/uL PT 10.6 (9.0-12.0) Seconds INR 1.0 (0.9-1.1) APTT 34.2 H (21.0-31.0) Seconds PTT Ratio 1.2 VBG pH (7.36-7.41) VBG pCO2 (38-50) mmHg VBG pO2 mmHg VBG HCO3 mmol/L VBG O2 Saturation % VBG Base Excess mEq/L Barometric Pressure mm/Hg POC Sodium (135-144) mmol/L Sodium 135 L (136-145) mmol/L POC Potassium (3.3-5.0) mmol/L Potassium TNP POC Chloride (101-112) mmol/L Chloride 97 L (98-107) mmol/L Carbon Dioxide 30 (21-32) mmol/L POC Total CO2 (24-31) mmol/L Anion Gap 8 (3-11) POC Anion Gap (16-25) mmol/L POC BUN (7-18) mg/dl BUN 40 H (6-23) mg/dl Creatinine 1.59 H (0.6-1.4) mg/dl POC Creatinine (0.6-1.3) mg/dl Est Cr Clr Drug Dosing 26.9 ml/min Est GFR ( Amer) 47.2 ml/min Est GFR (Non-Af Amer) 40.7 ml/min BUN/Creatinine Ratio 25.2 H (10-20) Glucose 88 (70-99(Fasting)) mg/dl POC Glucose (other) (70-99) mg/dl Lactate (0.4-2.0) mmol/L Calcium 8.9 (8.5-10.1) mg/dl POC Ioniz Calcium Mónica (1.12-1.32) mmol/l Magnesium 2.3 (1.7-2.4) mg/dl Total Bilirubin 0.6 (0.2-1.0) mg/dl AST TNP ALT 16 (7-52) U/L Alkaline Phosphatase 54 (34-104) U/L Troponin I High Sens 15.3 (0-20) pg/ml Total Protein 6.8 (6.0-8.3) gm/dl Albumin 4.0 (3.4-5.0) gm/dl Globulin 2.8 (2.5-4.0) gm/dl Albumin/Globulin Ratio 1.4 (0.9-2) Procalcitonin (0-0.5) ng/ml 03/19/22 03/19/22 03/19/22 Range/Units 15:04 15:04 16:04 WBC (4.8-10.8) K/uL RBC (4.7-6.1) M/uL Hgb (14.0-18.0) g/dL POC Hgb (14.0-18.0) g/dl Hct (42-52) % POC Hct (42-52) % MCV (80-100) fL MCH (25-34) pg MCHC (32-36) g/dL RDW Std Deviation (36.4-46.3) fL RDW Coeff of Nithya (11.5-14.5) % Plt Count (130-400) K/uL MPV (7.4-10.4) fL Immature Gran % (Auto) % Neut % (Auto) % Lymph % (Auto) % [place] % (Auto) % Eos % (Auto) % Baso % (Auto) % Neut # (Auto) (1.4-6.5) K/uL Lymph # (Auto) (1.2-3.4) K/uL [place] # (Auto) (0.11-0.59) K/uL Eos # (Auto) (0-0.5) K/uL Baso # (Auto) (0-0.2) K/uL Immature Gran # (Auto) (0.00-0.02) K/uL PT (9.0-12.0) Seconds INR (0.9-1.1) APTT (21.0-31.0) Seconds PTT Ratio VBG pH 7.41 (7.36-7.41) VBG pCO2 53 H (38-50) mmHg VBG pO2 17 mmHg VBG HCO3 33 mmol/L VBG O2 Saturation < 60.0 % VBG Base Excess 6.9 mEq/L Barometric Pressure 728.4 mm/Hg POC Sodium (135-144) mmol/L Sodium (136-145) mmol/L POC Potassium (3.3-5.0) mmol/L Potassium POC Chloride (101-112) mmol/L Chloride (98-107) mmol/L Carbon Dioxide (21-32) mmol/L POC Total CO2 (24-31) mmol/L Anion Gap (3-11) POC Anion Gap (16-25) mmol/L POC BUN (7-18) mg/dl BUN (6-23) mg/dl Creatinine (0.6-1.4) mg/dl POC Creatinine (0.6-1.3) mg/dl Est Cr Clr Drug Dosing ml/min Est GFR ( Amer) ml/min Est GFR (Non-Af Amer) ml/min BUN/Creatinine Ratio (10-20) Glucose (70-99(Fasting)) mg/dl POC Glucose (other) (70-99) mg/dl Lactate 1.1 (0.4-2.0) mmol/L Calcium (8.5-10.1) mg/dl POC Ioniz Calcium M[place] (1.12-1.32) mmol/l Magnesium (1.7-2.4) mg/dl Total Bilirubin (0.2-1.0) mg/dl AST ALT (7-52) U/L Alkaline Phosphatase (34-104) U/L Troponin I High Sens (0-20) pg/ml Total Protein (6.0-8.3) gm/dl Albumin (3.4-5.0) gm/dl Globulin (2.5-4.0) gm/dl Albumin/Globulin Ratio (0.9-2) Procalcitonin < 0.05 (0-0.5) ng/ml 03/19/22 Range/Units 16:38 WBC (4.8-10.8) K/uL RBC (4.7-6.1) M/uL Hgb (14.0-18.0) g/dL POC Hgb 10.5 L (14.0-18.0) g/dl Hct (42-52) % POC Hct 31 L (42-52) % MCV (80-100) fL MCH (25-34) pg MCHC (32-36) g/dL RDW Std Deviation (36.4-46.3) fL RDW Coeff of Nithya (11.5-14.5) % Plt Count (130-400) K/uL MPV (7.4-10.4) fL Immature Gran % (Auto) % Neut % (Auto) % Lymph % (Auto) % [place] % (Auto) % Eos % (Auto) % Baso % (Auto) % Neut # (Auto) (1.4-6.5) K/uL Lymph # (Auto) (1.2-3.4) K/uL [place] # (Auto) (0.11-0.59) K/uL Eos # (Auto) (0-0.5) K/uL Baso # (Auto) (0-0.2) K/uL Immature Gran # (Auto) (0.00-0.02) K/uL PT (9.0-12.0) Seconds INR (0.9-1.1) APTT (21.0-31.0) Seconds PTT Ratio VBG pH (7.36-7.41) VBG pCO2 (38-50) mmHg VBG pO2 mmHg VBG HCO3 mmol/L VBG O2 Saturation % VBG Base Excess mEq/L Barometric Pressure mm/Hg POC Sodium 138 (135-144) mmol/L Sodium (136-145) mmol/L POC Potassium 4.4 (3.3-5.0) mmol/L Potassium POC Chloride 102 (101-112) mmol/L Chloride (98-107) mmol/L Carbon Dioxide (21-32) mmol/L POC Total CO2 26 (24-31) mmol/L Anion Gap (3-11) POC Anion Gap 16.0 (16-25) mmol/L POC BUN 31 H (7-18) mg/dl BUN (6-23) mg/dl Creatinine (0.6-1.4) mg/dl POC Creatinine 1.3 (0.6-1.3) mg/dl Est Cr Clr Drug Dosing ml/min Est GFR ( Amer) ml/min Est GFR (Non-Af Amer) ml/min BUN/Creatinine Ratio (10-20) Glucose (70-99(Fasting)) mg/dl POC Glucose (other) 84 (70-99) mg/dl Lactate (0.4-2.0) mmol/L Calcium (8.5-10.1) mg/dl POC Ioniz Calcium Món[place] 0.96 L (1.12-1.32) mmol/l Magnesium (1.7-2.4) mg/dl Total Bilirubin (0.2-1.0) mg/dl AST ALT (7-52) U/L Alkaline Phosphatase (34-104) U/L Troponin I High Sens (0-20) pg/ml Total Protein (6.0-8.3) gm/dl Albumin (3.4-5.0) gm/dl Globulin (2.5-4.0) gm/dl Albumin/Globulin Ratio (0.9-2) Procalcitonin (0-0.5) ng/ml Imaging Data Radiologist's Impression: Chest X-Ray 03/19/22 14:28 SINGLE VIEW CHEST CLINICAL HISTORY: Sepsis. FINDINGS: An AP, portable, upright chest radiograph is compared to study dated 02/07/2022 and correlated with chest CT dated 02/04/2022. The examination is degraded by portable technique and apical lordotic positioning. The heart is enlarged noting atherosclerotic calcification and uncoiling of the thoracic aorta. Enlargement of the central pulmonary arteries suggests pulmonary artery hypertension. Advanced emphysema and chronic interstitial thickening is similar to previous. Foci of parenchymal scarring are seen throughout both lungs. No airspace consolidation or large pleural effusion is identified. No pneumothorax is seen. The skeletal structures are osteopenic. There are thoracic compression deformities with evidence of previous vertebroplasty. IMPRESSION: Cardiomegaly and advanced emphysema with no acute cardiopulmonary abnormality identified. ACT 112: Negative or not required by law. Electronically signed by: Dawson Smith M.D. 03/19/2022 3:[address] 03/19/22 15:15 CT SCAN OF THE BRAIN WITHOUT IV CONTRAST CLINICAL HISTORY: Headache. COMPARISON STUDY: CT of the brain dated 02/04/2022. TECHNIQUE: Unenhanced axial CT scan of the brain is performed from the vertex to the skull base. A dose lowering technique was utilized adhering to the principles of ALARA. CT DOSE: 1989.19 mGy.cm FINDINGS: Brain parenchyma: There is age-related involutional change noting moderate subcortical and periventricular microangiopathic disease. There is no hemorrhage, mass effect, or evidence of acute territorial ischemia by CT criteria. Petty-white matter differentiation is preserved. No extra-axial fluid collection is seen. Ventricles, sulci, cisterns: Prominent secondary to involutional change. Intracranial vasculature: There is atherosclerotic calcification of the cavernous carotid and vertebral arteries. Calvarium: Unremarkable. Sinuses and mastoids: There is mild mucosal thickening in the right maxillary an trum. The remaining paranasal sinuses are clear. The mastoid air cells are well pneumatized. Orbits: The bony orbits are grossly intact. There is a left ocular lens implant. IMPRESSION: There is no hemorrhage, mass effect, or evidence of acute territorial ischemia by CT criteria. ACT 112: Negative or not required by law. Electronically signed by: Dawson Smith M.D. 03/19/2022 5:35 PM ECG Data Indication: + SOB/dyspnea Rate (beats per minute): 83 Rhythm: + normal sinus ECG Intervals/blocks: + Normal HI and + Normal QT-c ECG ST segments: + Normal ST segments Additional Comments: QRS 78 MDM Narrative Vital signs stable. Labs within normal limits, patient's creatinine is at baseline. No leukocytosis. Lactic acid within normal limits. VBG within normal limits. Cardiac enzymes within normal limits. Chest x-ray and CT imaging of the head within normal limits. Patient was told that he can be discharged home with antitussives however the patient and his daughter at bedside state they do not feel comfortable going home and are requesting to be admitted to the hospital. Dr. Georges at [facility] hospitalist was made aware for the patient and will evaluate the patient. Impression & Plan COPD (chronic obstructive pulmonary disease) Discharge Plan Visit Data Chief Complaint: Shortness of Breath/Dyspnea Stated Complaint: LOW O2, COUGH, POST COVID ED Provider: Ed Olguin Discharge Problem: COPD (chronic obstructive pulmonary disease) Patient Disposition: Being Evaluated by Hospitalist Forms Stand Alone Forms: My [facility] Prescriptions Prescriptions: No Action magnesium oxide 420 mg tablet 420 mg PO QAM RF: 0 Stiolto Respimat 2.5-2.5 mcg/actuation mist 2 puff inhalation DAILY RF: 0 multivitamin Tablet 1 tab PO QAM RF: 0 metoprolol succinate 100 mg Tablet Extended Release 24 Hr 100 mg PO HS RF: 0 prednisone 5 mg Tablet 5 mg PO DAILY RF: 0 oxycodone-acetaminophen [Percocet] 5-325 mg Tablet 1 tab PO QID PRN (Reason: mod-severe pain) RF: 0 tamsulosin 0.4 mg Capsule 0.4 mg PO HS RF: 0 pantoprazole 40 mg Tablet,Delayed Release (Dr/Ec) 40 mg PO AMPM RF: 0 furosemide 20 mg Tablet 20 mg PO QAM RF: 0 hydroxychloroquine 200 mg Tablet 200 mg PO QAM RF: 0 hydroxyzine HCl 10 mg Tablet 10 mg PO Q12 PRN (Reason: Anxiety) RF: 0 calcium carbonate-vitamin D3 [Calcium 500 + D] 500 mg(1,250mg) -200 unit Tablet 1 tab PO QAM RF: 0 mometasone 220 mcg/ actuation (60) Aerosol Powdr Breath Activated 1 inh INHALATION DAILY RF: 0 amitriptyline 25 mg Tablet 25 mg PO HS RF: 0 Eliquis 5 mg tablet 5 mg PO Q12 RF: 0 cholecalciferol (vitamin D3) [Vitamin D3] 50 mcg (2,000 unit) Tablet 50 mcg PO DAILY RF: 0 aspirin [Aspirin Low-Strength] 81 mg Tablet,Delayed Release (Dr/Ec) 81 mg PO QAM RF: 0 ipratropium-albuterol 0.5 mg-3 mg(2.5 mg base)/3 mL Solution For Nebulization 3 ml INHALATION QID PRN (Reason: Shortness Of Breath Or Wheezing) RF: 0 fluticasone propionate 50 mcg/actuation [place],Suspension 2 spray INTRANASAL DAILY RF: 0 azithromycin 250 mg Tablet 250 mg PO 3XWK RF: 0 nitroglycerin 0.4 mg Tablet, Sublingual 0.4 mg sublingual UD PRN (Reason: Chest Pain) RF: 0 naloxone [Narcan] 4 mg/actuation [place],Non-Aerosol 4 mg INTRANASAL UD PRN (Reason: PAIN MEDICATION OVERLOAD) RF: 0 cyanocobalamin (vitamin B-12) 1,000 mcg Capsule 1,000 mcg PO QAM RF: 0 albuterol sulfate 90 mcg/actuation Hfa Aerosol Inhaler 1 inh INHALATION QID PRN (Reason: Shortness Of Breath Or Wheezing) RF: 0 Referrals Referrals: Paulette Johnson PA-C [Primary Care Provider] -
[2022-03-19 16:50] LABS: iSTAT Creatinine 1.3 mg/dl (0.6-1.3); iSTAT Hemoglobin 10.5 g/dl (14.0-18.0); iSTAT Ionized Calcium 0.96 mmol/l (1.12-1.32); iSTAT Potassium 4.4 mmol/L (3.3-5.0)
--- NOTE | 2022-03-19 17:37 | CT Scan Report ---
CT SCAN OF THE BRAIN WITHOUT IV CONTRAST CLINICAL HISTORY: Headache. COMPARISON STUDY: CT of the brain dated 02/04/2022. TECHNIQUE: Unenhanced axial CT scan of the brain is performed from the vertex to the skull base. A do se lowering technique was utilized adhering to the principles of ALARA. CT DOSE: 1989.19 mGy.cm FINDINGS: Brain parenchyma: There is age-related involutional change noting moderate subcortical and periventri cular microangiopathic disease. There is no hemorrhage, mass effect, or evidence of acute territorial ischemia by CT criteria. Petty-white matter differentiation is preserved. No extra-axial fluid collec tion is seen. Ventricles, sulci, cisterns: Prominent secondary to involutional change. Intracranial vasculature: There is atherosclerotic calcification of the cavernous carotid and vertebr al arteries. Calvarium: Unremarkable. Sinuses and mastoids: There is mild mucosal thickening in the right maxillary antrum. The remaining p aranasal sinuses are clear. The mastoid air cells are well pneumatized. Orbits: The bony orbits are grossly intact. There is a left ocular lens implant. IMPRESSION: There is no hemorrhage, mass effect, or evidence of acute territorial ischemia by CT [place]. ACT 112: Negative or not required by law. Electronically signed by: Dawson Smith M.D. 03/19/2022 5:35 PM
[2022-03-19] MEDS ORDERED: methylPREDNISolone 125 MG/2 ML VIAL IV STA (18:00)
--- NOTE | 2022-03-19 18:09 | History & Physical Report ---
Date of Service March 19, 2022 Assessment & Plan (1) Failure to thrive in adult: Plan: This is likely multifactorial, suspect a large portion may be the patient's advanced pulmonary disease I will place him monitor observation overnight Continue supportive care, treatment of chronic medical conditions as noted May benefit from nutrition consult and encouragement with diet PT/OT evaluation Daughter did mention that there was discussion about [facility], can discuss this with care management (2) Chronic respiratory failure: Plan: Continue O2 support with 4 L nasal cannula as before PT/OT evaluation Continue Stiolto or pharmacy equivalent Patient is also on chronic prednisone which can be continued Albuterol as needed (3) Prerenal azotemia: Plan: May be secondary to very mild dehydration. Patient is on furosemide 20 mg which will help Very slow IV hydration overnight, monitor labs in the morning. Monitor closely for signs of fluid overload (4) CHF (congestive heart failure): Plan: Chronic systolic CHF, recent EF of 40% I do not feel the patient is in acute exacerbation at this time and may actually be slightly dehydrated I will hold furosemide 20 mg daily for the time being, hopefully can restart prior to discharge (5) A-fib: Plan: Patient is rate controlled on monitor He is currently on Toprol-XL 100 mg nightly, will continue this for now. May need to find alternative agent if the patient continues to feel weak as this may be medication effect Continue Eliquis 5 mg every 12 hours (6) COPD (chronic obstructive pulmonary disease): Plan: Chronic, treatment as noted above. Continue oxygen support as noted Plan: Case management discuss discharge planning, may need state and rehab depending on results Patient is on Eliquis, does not require further DVT prophylaxis Patient is stated he wants no heroics, agreeable to DNR/DNI History of Present Illness Chief Complaint: fatigue Primary Care Provider: Paulette Johnson PA-C This is a 81-year-old male with past medical history of chronic hypoxic respiratory failure on 4 L nasal cannula chronically, atrial fibrillation that presents with complaint of fatigue/failure to thrive. Patient's daughter is in the room and gives some history. Patient states that over the past 3 days he has been feeling very fatigued. He has been having difficulty ambulating. He notes that he is more short of breath and has an occasional cough with thick white sputum. Daughter notes the patient has had a very poor appetite and has lost some weight recently, currently following at the [facility] and has been seeing onion topper, but that this is a longer standing issue. Patient denies any fever, nausea or vomiting, diarrhea or constipation. He does note that his mouth is very dry but no changes in his urination. Patient was sent to the hospital after his visiting nurse thought that he looked pale and weaker than usual but work-up was essentially unremarkable in the emergency room. However, family is concerned that he may get worse overnight and are requesting that he be placed in observation here. At the time my evaluation, patient's vitals were appropriate. His O2 sat was 92-95% on his baseline 4 L nasal cannula. (The daughter did note that he will occasionally desat to the 70s at home but no evidence of that was seen here.) Lab work was unremarkable outside of some mild azotemia. Allergies Allergy/AdvReac Type Severity Reaction Status Date / Time No Known Allergies Allergy Verified 03/19/22 16:01 Home Medications Medication Instructions Recorded Confirmed Type calcium carbonate 500 mg-vitamin 1 tab PO QAM 01/16/21 03/19/22 History D3 5 mcg (200 unit) tablet (Calcium 500 + D) furosemide 20 mg tablet 20 mg PO QAM 01/16/21 03/19/22 History hydroxychloroquine 200 mg tablet 200 mg PO QAM 01/16/21 03/19/22 History hydroxyzine HCl 10 mg tablet 10 mg PO Q12 PRN 01/16/21 03/19/22 History metoprolol succinate 100 mg 100 mg PO HS 01/16/21 03/19/22 History tablet,extended release 24 hr mometasone 1 inh INHALATION DAILY 01/16/21 03/19/22 History oxycodone-acetaminophen 5 mg-325 1 tab PO QID PRN 01/16/21 03/19/22 History mg tablet (Percocet) pantoprazole 40 mg tablet,delayed 40 mg PO AMPM 01/16/21 03/19/22 History release prednisone 5 mg tablet 5 mg PO DAILY 01/16/21 03/19/22 History tamsulosin 0.4 mg capsule 0.4 mg PO HS 01/16/21 03/19/22 History multivitamin 1 tab PO QAM 03/15/21 03/19/22 History tiotropium 2.5 mcg-olodaterol 2.5 2 puff INHALATION DAILY 03/15/21 03/19/22 History mcg/actuation mist for inhalation (Stiolto Respimat) azithromycin 250 mg tablet 250 mg PO 3XWK 05/09/21 03/19/22 History cyanocobalamin (vitamin B-12) 1,000 mcg PO QAM 05/09/21 03/19/22 History 1,000 mcg capsule naloxone 4 mg/actuation nasal 4 mg INTRANASAL UD PRN 05/09/21 03/19/22 History spray (Narcan) nitroglycerin 0.4 mg sublingual 0.4 mg SUBLINGUAL UD PRN 05/09/21 03/19/22 History tablet magnesium oxide 420 mg tablet 420 mg PO QAM 09/11/21 03/19/22 History albuterol sulfate 90 mcg/actuation 1 inh INHALATION QID PRN 02/04/22 03/19/22 History aerosol inhaler amitriptyline 25 mg tablet 25 mg PO HS 03/19/22 03/19/22 History apixaban 5 mg tablet (Eliquis) 5 mg PO Q12 03/19/22 03/19/22 History aspirin 81 mg tablet,delayed 81 mg PO QAM 03/19/22 03/19/22 History release cholecalciferol (vitamin D3) 50 50 mcg PO DAILY 03/19/22 03/19/22 History mcg (2,000 unit) tablet (Vitamin D3) fluticasone propionate 50 2 spray INTRANASAL DAILY 03/19/22 03/19/22 History mcg/actuation nasal spray,suspension ipratropium 0.5 mg-albuterol 3 mg 3 ml INHALATION QID PRN 03/19/22 03/19/22 History (2.5 mg base)/3 mL nebulization soln Past Med/Surg History Medical History A-fib Anxiety and depression BPH (benign prostatic hyperplasia) Chronic kidney disease STAGE 3 COPD (chronic obstructive pulmonary disease) Degenerative disc disease Emphysema of lung Glaucoma History of restless legs syndrome Hx of gastric ulcer Hypertension Leaky heart valve FOLLOWS DR. Layne ([facility]) On home oxygen therapy 4-5L NC O2 CONT. Pernicious anemia HX OF Poor circulation "IN FINGERS" PER DAUGHTER Rheumatoid arthritis Sciatica Surgical History H/O eye surgery LASER FOR GLAUCOMA History of colonoscopy History of esophagogastroduodenoscopy (EGD) History of herniorrhaphy History of kyphoplasty History of lumbar laminectomy History of nasal septoplasty History of tonsillectomy and adenoidectomy History of tooth extraction Family History Other Family history non-contributory No family history of adverse response to anesthesia Denies family history of Kidney disease Social History Smoking Status: Former smoker Cigarettes Per Day: "1 pack a day during the war". Patient states they were in his rations.; Second Hand Exposure: No; Hx Alcohol Use: No Hx Substance Use: No Preferred Language: Central African Communication Ability: Effective Loading Rack Supervisor Required: No Beliefs That Will Affect Care: None Current Living Situation: Family Current Living Situation Comment: Lives with Daughter and Son in Law. 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 Feels Safe at Home: Yes Assistive Devices: Cane, Oxygen - Continuous and Walker Review of Systems Constitutional: + fatigue, + malaise, + weakness, + anorexia, + weight loss and + insomnia; no fever, no chills, no sweats and no weight gain Eyes: as per Subjective / HPI Ear, Nose, Mouth, Throat: + dry mouth Respiratory: + cough, + dyspnea, + dyspnea on exertion and + sputum production; no chest congestion, no hemoptysis and no wheezing Cardiovascular: no chest pain, no orthopnea, no palpitations, no lightheadedness and no edema Gastrointestinal: no abdominal pain, no nausea, no vomiting, no constipation and no diarrhea/loose stools Genitourinary: no dysuria, no difficulty urinating, no urinary frequency or no urinary hesitancy Musculoskeletal: no back pain, no neck pain, no joint pain, no stiffness and no myalgia Integumentary: no rash Neurologic: + generalized weakness; no gait abnormality, no unsteadiness and no falls Physical Exam Constitutional: + thin, + frail appearing and cooperative; no acute distress Neck: trachea midline, no thyromegaly Respiratory: normal respiratory effort Auscultation: + diminished lung sounds; no crackles, no rales, no rhonchi and no wheezes Cardiovascular: Rate/Rhythm: regular rate and regular rhythm Heart Sounds: normal S1 and normal S2 Vessels: no JVD and no carotid bruit Gastrointestinal (Abdomen): Inspection/Auscultation: abdomen normal to inspection Percussion/Palpation: abdomen soft; abdomen nontender, no guarding, abdomen not rigid and no hepatosplenomegaly Musculoskeletal: No edema Skin: no rashes, warm and dry Results & Data Results & Data ([facility]) Vital Signs (Past 12 Hours) Vital Signs Temp Pulse Resp BP Pulse Ox 03/19/22 17:43 92 03/19/22 17:30 87 17 111/80 92 03/19/22 17:15 87 17 115/75 93 03/19/22 16:45 89 20 126/63 92 03/19/22 16:31 88 17 121/55 L 92 03/19/22 16:08 87 17 113/65 90 03/19/22 15:51 93 03/19/22 15:42 86 16 104/63 93 03/19/22 15:05 85 16 109/65 93 03/19/22 14:22 36.3 C L 96 H 22 87/59 L 90 Laboratory Results Laboratory Results WBC 6.58 K/uL (4.8-10.8) 03/19/22 15:04 RBC 4.13 M/uL (4.7-6.1) L 03/19/22 15:04 Hgb 12.3 g/dL (14.0-18.0) L 03/19/22 15:04 POC Hgb 10.5 g/dl (14.0-18.0) L 03/19/22 16:38 Hct 38.8 % (42-52) L 03/19/22 15:04 POC Hct 31 % (42-52) L 03/19/22 16:38 MCV 93.9 fL (80-100) 03/19/22 15:04 MCH 29.8 pg (25-34) 03/19/22 15:04 MCHC 31.7 g/dL (32-36) L 03/19/22 15:04 RDW Std Deviation 46.4 fL (36.4-46.3) H 03/19/22 15:04 RDW Coeff of Nithya 13.4 % (11.5-14.5) 03/19/22 15:04 Plt Count 208 K/uL (130-400) 03/19/22 15:04 MPV 10.4 fL (7.4-10.4) 03/19/22 15:04 Immature Gran % (Auto) 0.3 % 03/19/22 15:04 Neut % (Auto) 64.8 % 03/19/22 15:04 Lymph % (Auto) 18.7 % 03/19/22 15:04 Canadian % (Auto) 14.6 % 03/19/22 15:04 Eos % (Auto) 1.4 % 03/19/22 15:04 Baso % (Auto) 0.2 % 03/19/22 15:04 Neut # (Auto) 4.27 K/uL (1.4-6.5) 03/19/22 15:04 Lymph # (Auto) 1.23 K/uL (1.2-3.4) 03/19/22 15:04 Canadian # (Auto) 0.96 K/uL (0.11-0.59) H 03/19/22 15:04 Eos # (Auto) 0.09 K/uL (0-0.5) 03/19/22 15:04 Baso # (Auto) 0.01 K/uL (0-0.2) 03/19/22 15:04 Immature Gran # (Auto) 0.02 K/uL (0.00-0.02) 03/19/22 15:04 PT 10.6 Seconds (9.0-12.0) 03/19/22 15:04 INR 1.0 (0.9-1.1) 03/19/22 15:04 APTT 34.2 Seconds (21.0-31.0) H 03/19/22 15:04 PTT Ratio 1.2 03/19/22 15:04 VBG pH 7.41 (7.36-7.41) 03/19/22 16:04 VBG pCO2 53 mmHg (38-50) H 03/19/22 16:04 VBG pO2 17 mmHg 03/19/22 16:04 VBG HCO3 33 mmol/L 03/19/22 16:04 VBG O2 Saturation < 60.0 % 03/19/22 16:04 VBG Base Excess 6.9 mEq/L 03/19/22 16:04 Barometric Pressure 728.4 mm/Hg 03/19/22 16:04 POC Sodium 138 mmol/L (135-144) 03/19/22 16:38 Sodium 135 mmol/L (136-145) L 03/19/22 15:04 POC Potassium 4.4 mmol/L (3.3-5.0) 03/19/22 16:38 Potassium TNP 03/19/22 15:04 POC Chloride 102 mmol/L (101-112) 03/19/22 16:38 Chloride 97 mmol/L (98-107) L 03/19/22 15:04 Carbon Dioxide 30 mmol/L (21-32) 03/19/22 15:04 POC Total CO2 26 mmol/L (24-31) 03/19/22 16:38 Anion Gap 8 (3-11) 03/19/22 15:04 POC Anion Gap 16.0 mmol/L (16-25) 03/19/22 16:38 POC BUN 31 mg/dl (7-18) H 03/19/22 16:38 BUN 40 mg/dl (6-23) H 03/19/22 15:04 Creatinine 1.59 mg/dl (0.6-1.4) H 03/19/22 15:04 POC Creatinine 1.3 mg/dl (0.6-1.3) 03/19/22 16:38 Est Cr Clr Drug Dosing 26.9 ml/min 03/19/22 15:04 Est GFR ( Amer) 47.2 ml/min 03/19/22 15:04 Est GFR (Non-Af Amer) 40.7 ml/min 03/19/22 15:04 BUN/Creatinine Ratio 25.2 (10-20) H 03/19/22 15:04 Glucose 88 mg/dl (70-99(Fasting)) 03/19/22 15:04 POC Glucose (other) 84 mg/dl (70-99) 03/19/22 16:38 Lactate 1.1 mmol/L (0.4-2.0) 03/19/22 15:04 Calcium 8.9 mg/dl (8.5-10.1) 03/19/22 15:04 POC Ioniz Calcium Mónica 0.96 mmol/l (1.12-1.32) L 03/19/22 16:38 Magnesium 2.3 mg/dl (1.7-2.4) 03/19/22 15:04 Total Bilirubin 0.6 mg/dl (0.2-1.0) 03/19/22 15:04 AST TNP 03/19/22 15:04 ALT 16 U/L (7-52) 03/19/22 15:04 Alkaline Phosphatase 54 U/L (34-104) 03/19/22 15:04 Troponin I High Sens 15.3 pg/ml (0-20) 03/19/22 15:04 Total Protein 6.8 gm/dl (6.0-8.3) 03/19/22 15:04 Albumin 4.0 gm/dl (3.4-5.0) 03/19/22 15:04 Globulin 2.8 gm/dl (2.5-4.0) 03/19/22 15:04 Albumin/Globulin Ratio 1.4 (0.9-2) 03/19/22 15:04 Procalcitonin < 0.05 ng/ml (0-0.5) 03/19/22 15:04 Impressions Chest X-Ray 03/19/22 14:28 SINGLE VIEW CHEST CLINICAL HISTORY: Sepsis. FINDINGS: An AP, portable, upright chest radiograph is compared to study dated 02/07/2022 and correlated with chest CT dated 02/04/2022. The examination is degraded by portable technique and apical lordotic positioning. The heart is enlarged noting atherosclerotic calcification and uncoiling of the thoracic aorta. Enlargement of the central pulmonary arteries suggests pulmonary artery hypertension. Advanced emphysema and chronic interstitial thickening is similar to previous. Foci of parenchymal scarring are seen throughout both lungs. No airspace consolidation or large pleural effusion is identified. No pneumothorax is seen. The skeletal structures are osteopenic. There are thoracic compression deformities with evidence of previous vertebroplasty. IMPRESSION: Cardiomegaly and advanced emphysema with no acute cardiopulmonary abnormality identified. ACT 112: Negative or not required by law. Electronically signed by: Dawson Smith M.D. 03/19/2022 3:[address] 03/19/22 15:15 CT SCAN OF THE BRAIN WITHOUT IV CONTRAST CLINICAL HISTORY: Headache. COMPARISON STUDY: CT of the brain dated 02/04/2022. TECHNIQUE: Unenhanced axial CT scan of the brain is performed from the vertex to the skull base. A dose lowering technique was utilized adhering to the principles of ALARA. CT DOSE: 1989.19 mGy.cm FINDINGS: Brain parenchyma: There is age-related involutional change noting moderate subcortical and periventricular microangiopathic disease. There is no hemorrhage, mass effect, or evidence of acute territorial ischemia by CT criteria. Petty-white matter differentiation is preserved. No extra-axial fluid collection is seen. Ventricles, sulci, cisterns: Prominent secondary to involutional change. Intracranial vasculature: There is atherosclerotic calcification of the cavernous carotid and vertebral arteries. Calvarium: Unremarkable. Sinuses and mastoids: There is mild mucosal thickening in the right maxillary antrum. The remaining paranasal sinuses are clear. The mastoid air cells are well pneumatized. Orbits: The bony orbits are grossly intact. There is a left ocular lens implant. IMPRESSION: There is no hemorrhage, mass effect, or evidence of acute territorial ischemia by CT criteria. ACT 112: Negative or not required by law. Electronically signed by: Dawson Smith M.D. 03/19/2022 5:35 PM PG Care Time/CCT Total # of Minutes Spent Total Time Spent with Patient: Total time spent is greater than 50% in coordination of care (as documented) at patient's floor/unit and/or counseling patient: Coding Level of Care Code INT OBSERVATION CARE 70M LVL 3 Diagnoses CHF (congestive heart failure) I50.9 A-fib I48.91 COPD (chronic obstructive pulmonary disease) J44.9 COPD type: unspecified COPD Failure to thrive in adult R62.7 Chronic respiratory failure J96.10 Prerenal azotemia R79.89 (1) COPD (chronic obstructive pulmonary disease) COPD type: unspecified COPD Qualified Code(s): J44.9 - Chronic obstructive pulmonary disease, unspecified
[2022-03-19 18:58] LABS: Appearance Urine Clear (Clear); Bilirubin Urine Negative (Negative); Blood Urine Negative (Negative); Color Urine Yellow; Glucose Urine UA Negative (Negative); Ketones Urine Negative (Negative); Leukocyte Esterase Urine Negative (Negative); Nitrite Urine Negative (Negative); Protein Urine Negative (Negative); Specific Gravity Urine 1.021 (1.000-1.030); Urobilinogen Urine Negative (Negative)
[2022-03-19] MEDS ORDERED: oxyCODONE/ACETAMINOPHEN 5mg/325mg TAB PO ONE (20:29)
[2022-03-19 21:17] LABS: Influenza A virus by PCR Negative (Neg); Influenza B virus by PCR Negative (Neg); RSV by PCR Negative (Neg)
[2022-03-19 21:50] LABS: SARS CoV2 RNA(COVID-19) InHosp POSITIVE (Negative)
[2022-03-19] MEDS ORDERED: ACETAMINOPHEN 325 MG TAB PO PRN (23:26)
[2022-03-19] MEDS ORDERED: SODIUM CHLORIDE 0.9% 500 ML IV ONE (23:26)
[2022-03-19] MEDS ORDERED: ONDANSETRON INJ 2 MG/ML 2 ML VIAL IV PRN (23:26)
[2022-03-19] MEDS ORDERED: METOPROLOL SUCC 50MG EXT REL TAB PO SCH (23:26)
[2022-03-19] MEDS ORDERED: ALBUTEROL HFA 8 GM INHALER INH PRN (23:26)
[2022-03-19] MEDS ORDERED: ALBUT/IPRATROP 3MG/0.5MG NEB 3 ML VIAL INH PRN (23:26)
[2022-03-20] MEDS: APIXABAN 5 MG TABLET PO SCH ×3 (00:25→20:53)
[2022-03-20] MEDS: AMITRIPTYLINE HCL 25 MG TAB PO SCH ×2 (00:25→20:52)
[2022-03-20] MEDS: TAMSULOSIN HCL 0.4 MG CAP PO SCH ×2 (00:25→20:52)
[2022-03-20] MEDS: PANTOprazole 40 MG TAB PO SCH ×3 (00:25→20:52)
[2022-03-20 06:22] LABS: Albumin Globulin Ratio 1.3 (0.9-2); Albumin Level 3.6 gm/dl (3.4-5.0); BUN Creatinine Ratio 28.9 (10-20); Bilirubin,Total 0.4 mg/dl (0.2-1.0); Calcium 8.5 mg/dl (8.5-10.1); Creatinine Clr Calc Pharmacy 33.2 ml/min; Est GFR (African American) 61.3 ml/min; Est GFR (Non-African American) 52.9 ml/min; Globulin 2.7 gm/dl (2.5-4.0); Magnesium 2.3 mg/dl (1.7-2.4); Potassium 4.8 mmol/L (3.5-5.1); Total Protein 6.3 gm/dl (6.0-8.3)
[2022-03-20 08:02] LABS: Prealbumin 16.2 mg/dl (20-40)
[2022-03-20] MEDS: CYANOCOBALAMIN (B-12) 500 MCG TABLET PO SCH (08:33)
[2022-03-20] MEDS: oxyCODONE/ACETAMINOPHEN 5mg/325mg TAB PO PRN ×3 (08:33→18:17)
[2022-03-20] MEDS: ASPIRIN 81 MG ECTAB PO SCH (08:33)
[2022-03-20] MEDS: hydrOXYzine HCl 10 MG TAB PO PRN ×2 (08:33→20:51)
[2022-03-20] MEDS: MAGNESIUM OXIDE 400 MG TAB PO SCH (08:33)
[2022-03-20] MEDS: CALCIUM 600MG + VIT D 400 IU TAB PO SCH (08:34)
[2022-03-20] MEDS: UMECLIDINIUM/VILANTEROL 62.5/25MCG 7 PUFFS/INHALER INH SCH (08:34)
[2022-03-20] MEDS: CHOLECALCIFEROL 1,000 UNITS 25 MCG TAB PO SCH (08:34)
[2022-03-20] MEDS: FLUTICASONE FUROATE 100MCG 14 PUFFS/INHALER INH SCH (08:34)
[2022-03-20] MEDS: FLUTICASONE PROPIONATE NA SPR 16 GM BTL SCH (08:35)
[2022-03-20] MEDS: MULTIVITAMIN TAB PO SCH (08:41)
[2022-03-20] MEDS ORDERED: REMDESIVIR 200 MG in SODIUM CHLORIDE 0.9% 210 ML IV SCH (09:00)
[2022-03-20] MEDS ORDERED: predniSONE 5 MG TAB PO SCH (09:00)
[2022-03-20] MEDS: dexAMETHasone 6 MG in SYRINGE 0 ML IV SCH (10:07)
--- NOTE | 2022-03-20 19:35 | Hospitalist Progress Note ---
Date of Service March 20, 2022 Assessment & Plan (1) Pneumonia due to COVID-19 virus: Plan: Some of his radiographic findings could be chronic, and some could be COVID pneumonia. Given his symptoms and o2 requirement being a bit higher than baseline will hold his usual prednisone and switch to dexamethasone 6mg IV daily. He is about 10 days into the illness; might have some benefit from Remdesivir. Start Remdesivir 200mg IV x 1 now. Then 100mg daily x 4 days. CrCL is >30 today. Add flutter valve & incentive stefany. Schedule duonebs q6h. Lay on side if possible. (2) Chronic respiratory failure with hypoxia: Plan: on home O2 - 4 L continuously (3) History of pulmonary embolus (PE): Plan: dx 02/2022 now on Eliquis 5mg BID (4) COPD with exacerbation: Plan: 2nd to #1 see above (5) BPH (benign prostatic hyperplasia): (6) Rheumatoid arthritis: (7) Failure to thrive in adult: Plan: 2nd to COVID infection PT, OT evals requested (8) Chronic renal failure, stage 3b: Plan: baseline CrCl 30s bmp am (9) Permanent atrial fibrillation: Plan: now in NSR this admission cont Eliquis cont BB Plan: attempted to call family today - no answer, left message Admission and Anticipated Discharge Date Admission Date: March 19, 2022 Subjective patient states "I think I feel better today" appetite improved his breathing and cough are better not as short of breath is requiring 5 L NC O2 - usually on 4 L at home continuously tele overnight wnl Review of Systems Review of Systems: gen - fatigue, but no fevers or chills; states he tested + ~March 09 or 30 at home (had no symptoms at time of test) cv - no orthopnea pulm - no dyspnea at rest GI - no N/V/pain Physical Exam Physical Exam: gen - NAD, pleasant neck - no JVD mouth - MM very dry heart - RRR, s1 s2, 2/6 systolic murmur lungs - mild end-exp wheezes b/l; mild rales L base abd - soft NT ND BS+ ext - no edema; pulses 2+ b/l Results & Data Results & Data ([facility]) Vital Signs (Past 12 Hours) Vital Signs Temp Pulse Resp BP Pulse Ox Pulse Ox Pulse Ox 03/20/22 15:00 90 03/20/22 14:26 92 03/20/22 11:17 36.8 C 84 18 91/54 L 88 L 03/20/22 10:30 14 94 03/20/22 10:00 15 93 03/20/22 09:30 16 92 03/20/22 09:00 15 91 03/20/22 08:30 16 92 03/20/22 08:22 36.5 C 91 H 18 122/63 92 03/20/22 08:00 18 96 Pulse Ox Pulse Ox 03/20/22 15:00 03/20/22 14:26 95 80 L 03/20/22 11:17 03/20/22 10:30 03/20/22 10:00 03/20/22 09:30 03/20/22 09:00 03/20/22 08:30 03/20/22 08:22 03/20/22 08:00 Laboratory Results Laboratory Results - last 24 hr 03/19/22 03/20/22 20:15 05:20 Sodium 137 Potassium 4.8 Chloride 101 Carbon Dioxide 29 Anion Gap 7 BUN 37 H Creatinine 1.28 D Est Cr Clr Drug Dosing 33.2 Est GFR ( Amer) 61.3 Est GFR (Non-Af Amer) 52.9 BUN/Creatinine Ratio 28.9 H Glucose 150 H Calcium 8.5 Magnesium 2.3 Total Bilirubin 0.4 AST 22 ALT 13 Alkaline Phosphatase 48 Total Protein 6.3 Albumin 3.6 Globulin 2.7 Albumin/Globulin Ratio 1.3 Prealbumin 16.2 L SARS-CoV-2 (PCR) POSITIVE A* Influenza Type A (PCR) Negative Influenza Type B (PCR) Negative RSV (RT-PCR) Negative PG Care Time/CCT Total # of Minutes Spent Total Time Spent with Patient: Total time spent is greater than 50% in coordination of care (as documented) at patient's floor/unit and/or counseling patient: Coding Level of Care Code 65163 Subseq Obs Care Lvl 3 Diagnoses Pneumonia due to COVID-19 virus U07.1; J12.82 Chronic respiratory failure with hypoxia J96.11 History of pulmonary embolus (PE) Z86.711 COPD with exacerbation J44.1 BPH (benign prostatic hyperplasia) N40.0 Rheumatoid arthritis M06.9 Failure to thrive in adult R62.7 Chronic renal failure, stage 3b N18.32 Permanent atrial fibrillation I48.21
[2022-03-20] MEDS: METOPROLOL SUCC 50MG EXT REL TAB PO SCH (20:49)
[2022-03-20] MEDS: ALBUT/IPRATROP 3MG/0.5MG NEB 3 ML VIAL INH SCH (21:19)
--- NOTE | 2022-03-20 23:07 | Electrocardiogram Report ---
Test Reason : Blood Pressure : / mmHG Vent. Rate : 083 BPM Atrial Rate : 083 BPM P-R Int : 162 ms QRS Dur : 078 ms QT Int : 362 ms P-R-T Axes : 038 -21 076 degrees QTc Int : 425 ms Normal sinus rhythm Nonspecific ST and T wave abnormality Abnormal ECG When compared with ECG of 05-FEB-2022 10:35, Rhythm is now sinus ST no longer depressed in Anterior leads Confirmed by Christo Schmid ([id number]) on 03/20/2022 11:06:57 PM Referred By: REFERRED SELF Confirmed By:Christo Schmid
[2022-03-21 06:45] LABS: Hematocrit (blood only) 38.3 % (42-52); Hemoglobin 12.1 g/dL (14.0-18.0); Mean Corpuscular Hemoglobin 29.8 pg (25-34); Mean Corpuscular Hgb Conc 31.6 g/dL (32-36); Mean Corpuscular Volume 94.3 fL (80-100); Mean Platelet Volume 10.3 fL (7.4-10.4); Platelet Count 236 K/uL (130-400); RDW Coefficient of Variation 13.2 % (11.5-14.5); Red Blood Count 4.06 M/uL (4.7-6.1); White Blood Count 8.75 K/uL (4.8-10.8)
[2022-03-21 07:04] LABS: C Reactive Protein 2.1 mg/dl (0-0.5); Calcium 8.6 mg/dl (8.5-10.1); Creatinine Clr Calc Pharmacy 30.8 ml/min; Est GFR (Non-African American) 48.3 ml/min; Potassium 5.1 mmol/L (3.5-5.1)
--- NOTE | 2022-03-21 07:19 | XRay Report ---
XR chest 1V portable HISTORY: 81 years-old Male COVID-19 infection; eval pneumonia COMPARISON: Chest radiograph 03/19/2022 TECHNIQUE: Portable AP view of the chest FINDINGS: The cardiac silhouette is enlarged. Atherosclerosis of the aorta. No pneumothorax, pleural effusion, airspace consolidation or overt pulmonary edema. Emphysema with chronic interstitial coarsening. Dege nerative changes of the shoulders and spine. Thoracic levoscoliosis. Healed chronic right-sided rib f ractures. Chronic midthoracic compression deformities with kyphoplasty. IMPRESSION: 1. No acute process. 2. Emphysema with chronic interstitial coarsening. ACT 112: Negative or not required by law. The above report was generated using voice recognition software. It may contain grammatical, syntax o r spelling errors. Electronically signed by: Abelardo Saavedra M.D. 03/21/2022 7:18 AM
[2022-03-21] MEDS: ALBUT/IPRATROP 3MG/0.5MG NEB 3 ML VIAL INH SCH ×4 (07:44→19:58)
[2022-03-21] MEDS: oxyCODONE/ACETAMINOPHEN 5mg/325mg TAB PO PRN ×2 (07:58→18:53)
[2022-03-21] MEDS: dexAMETHasone 6 MG in SYRINGE 0 ML IV SCH (07:58)
[2022-03-21] MEDS: APIXABAN 5 MG TABLET PO SCH ×2 (07:59→21:41)
[2022-03-21] MEDS: CALCIUM 600MG + VIT D 400 IU TAB PO SCH (08:00)
[2022-03-21] MEDS: MULTIVITAMIN TAB PO SCH (08:00)
[2022-03-21] MEDS: CYANOCOBALAMIN (B-12) 500 MCG TABLET PO SCH (08:00)
[2022-03-21] MEDS: ASPIRIN 81 MG ECTAB PO SCH (08:00)
[2022-03-21] MEDS: PANTOprazole 40 MG TAB PO SCH ×2 (08:00→21:41)
[2022-03-21] MEDS: MAGNESIUM OXIDE 400 MG TAB PO SCH (08:00)
[2022-03-21] MEDS: FLUTICASONE FUROATE 100MCG 14 PUFFS/INHALER INH SCH (08:01)
[2022-03-21] MEDS: CHOLECALCIFEROL 1,000 UNITS 25 MCG TAB PO SCH (08:01)
[2022-03-21] MEDS: UMECLIDINIUM/VILANTEROL 62.5/25MCG 7 PUFFS/INHALER INH SCH (08:02)
[2022-03-21] MEDS: FLUTICASONE PROPIONATE NA SPR 16 GM BTL SCH (08:02)
[2022-03-21] MEDS: REMDESIVIR 100 MG in SODIUM CHLORIDE 0.9% 230 ML IV SCH (11:12)
[2022-03-21] MEDS: AZITHROMYCIN 250 MG TAB PO SCH (11:12)
[2022-03-21] MEDS ORDERED: PATIROMER CALCIUM SORBITEX 8.4 GM PACK PO ONE (11:30)
--- NOTE | 2022-03-21 13:37 | Hospitalist Progress Note ---
Date of Service March 21, 2022 Assessment & Plan (1) Pneumonia due to COVID-19 virus: Plan: Some of his radiographic findings could be chronic, and some could be COVID pneumonia. Day #2 of IV dexamethasone 6mg daily. Day #2 of Remdesivir. CrCL remains >30; AST/ALT wnl. Cont flutter valve & incentive stefany. Cont duonebs. Lay on side if possible. Treat anxiety. (2) Sore throat: Plan: I don't see obvious thrush but not unreasonable, given the chronic steroid use, will presumptively Rx for such. magic mouthwash q6h prn. nystatin solution 5cc qid scheduled - swish/spit. (3) Anxiety: Plan: start buspar 5mg BID (4) Chronic respiratory failure with hypoxia: Plan: on home O2 - 4 L continuously O2 requirements here are at baseline except needs 5 L with activity this should improve w/ time (5) History of pulmonary embolus (PE): Plan: dx 02/2022 now on Eliquis 5mg BID (6) COPD with exacerbation: Plan: 2nd to #1 see above (7) BPH (benign prostatic hyperplasia): Plan: cont flomax has been on such for several years - doubt contributing to dizziness (8) Rheumatoid arthritis: Plan: holding plaquenil for now due to Remdesivir usage (interaction) no flare or active disease (9) Failure to thrive in adult: Plan: 2nd to COVID infection PT, OT evals appreciated once stable medically will be able to return home with daughter (10) Chronic renal failure, stage 3b: Plan: baseline CrCl 30s bmp am K level 5.1 today - give patiromer x 1 as the K level likely to rise due to recent mild ULICES (11) Permanent atrial fibrillation: Plan: in NSR this admission cont Eliquis cont BB Plan: spoke with pt's daughter by phone - extensive update given holding off on d/c - patient not ready at this time change observation to full admission status Admission and Anticipated Discharge Date Admission Date: March 19, 2022 Subjective patient very anxious this am he reports "a lot of things going on at home" he mentions that he and his family have been discussing the possibility of him entering the [place] [facility] down near [place] he is sad about this prospect and thinks that "once I'm there it's all over for me" he endorses dyspnea on exertion - more so than his usual baseline 2-step this am - 4 L NC O2 needed at rest; 5 L NC O2 with activity he also c/o sore throat - started during the hospital stay minimal cough no sputum slept ok overnight Review of Systems Review of Systems: gen - no fevers; appetite good; energy fair cv - no orthopnea; no pain pulm - cough, CURRAN GI - no pain, nausea - voiding neuro - chronic dizziness x 1 month Physical Exam Physical Exam: gen - NAD, pleasant, but very anxious today neck - no JVD mouth - MM more moist today; no obvious thrush or lesions heart - RRR, s1 s2, 2/6 systolic murmur lungs - mild end-exp wheezes b/l; mild rales L base; mild tachypnea abd - soft NT ND BS+ ext - no edema; pulses 2+ b/l psych - awake, alert, oriented x 3; anxious Results & Data Results & Data ([facility]) Vital Signs (Past 12 Hours) Vital Signs Temp Pulse Pulse Pulse Pulse Pulse Resp 03/21/22 11:58 99 H 102 H 90 93 H 03/21/22 10:55 16 03/21/22 07:44 88 18 03/21/22 03:28 36.4 C L 96 H 18 Resp Resp Resp Resp BP Pulse Ox Pulse Ox 03/21/22 11:58 20 24 18 18 90 03/21/22 10:55 92 03/21/22 07:44 94 03/21/22 03:28 126/74 94 Pulse Ox Pulse Ox Pulse Ox 03/21/22 11:58 84 L 97 93 03/21/22 10:55 03/21/22 07:44 03/21/22 03:28 Laboratory Results Laboratory Results - last 24 hr 03/21/22 03/21/22 06:23 06:23 WBC 8.75 RBC 4.06 L Hgb 12.1 L Hct 38.3 L MCV 94.3 MCH 29.8 MCHC 31.6 L RDW Std Deviation 46.0 RDW Coeff of Nithya 13.2 Plt Count 236 MPV 10.3 Sodium 138 Potassium 5.1 Chloride 102 Carbon Dioxide 29 Anion Gap 7 BUN 40 H Creatinine 1.38 Est Cr Clr Drug Dosing 30.8 Est GFR ( Amer) 56.0 Est GFR (Non-Af Amer) 48.3 BUN/Creatinine Ratio 29.0 H Glucose 102 H Calcium 8.6 AST 26 ALT 15 C-Reactive Protein 2.10 H PG Care Time/CCT Total # of Minutes Spent Total Time Spent with Patient: Total time spent is greater than 50% in coordination of care (as documented) at patient's floor/unit and/or counseling patient: Coding Level of Care Code 05705 Subseq Hosp Care Lvl 3 Diagnoses Pneumonia due to COVID-19 virus U07.1; J12.82 Chronic respiratory failure with hypoxia J96.11 History of pulmonary embolus (PE) Z86.711 COPD with exacerbation J44.1 BPH (benign prostatic hyperplasia) N40.0 Rheumatoid arthritis M06.9 Failure to thrive in adult R62.7 Chronic renal failure, stage 3b N18.32 Permanent atrial fibrillation I48.21 Sore throat J02.9 Anxiety F41.9
[2022-03-21] MEDS: FIRST - Mouthwash BLM 119 ML PO PRN (15:00)
[2022-03-21] MEDS: busPIRone 5 MG TAB PO SCH ×2 (15:00→21:41)
[2022-03-21] MEDS: NYSTATIN SUSP 500,000 U/5 ML UDC PO SCH ×2 (16:47→21:41)
[2022-03-21] MEDS: hydrOXYzine HCl 10 MG TAB PO PRN (18:53)
[2022-03-21] MEDS: TAMSULOSIN HCL 0.4 MG CAP PO SCH (21:41)
[2022-03-21] MEDS: AMITRIPTYLINE HCL 25 MG TAB PO SCH (21:41)
[2022-03-21] MEDS: METOPROLOL SUCC 50MG EXT REL TAB PO SCH (21:41)
[2022-03-22] MEDS: oxyCODONE/ACETAMINOPHEN 5mg/325mg TAB PO PRN ×4 (05:12→23:26)
[2022-03-22 07:00] LABS: BUN Creatinine Ratio 35.2 (10-20); Calcium 8.5 mg/dl (8.5-10.1); Creatinine Clr Calc Pharmacy 40.5 ml/min; Est GFR (African American) 77.9 ml/min; Est GFR (Non-African American) 67.2 ml/min; Potassium 4.6 mmol/L (3.5-5.1)
[2022-03-22] MEDS: ALBUT/IPRATROP 3MG/0.5MG NEB 3 ML VIAL INH SCH ×4 (07:33→19:36)
[2022-03-22] MEDS: ASPIRIN 81 MG ECTAB PO SCH (08:33)
[2022-03-22] MEDS: CALCIUM 600MG + VIT D 400 IU TAB PO SCH (08:33)
[2022-03-22] MEDS: CYANOCOBALAMIN (B-12) 500 MCG TABLET PO SCH (08:33)
[2022-03-22] MEDS: APIXABAN 5 MG TABLET PO SCH ×2 (08:33→20:22)
[2022-03-22] MEDS: MAGNESIUM OXIDE 400 MG TAB PO SCH (08:33)
[2022-03-22] MEDS: MULTIVITAMIN TAB PO SCH (08:33)
[2022-03-22] MEDS: PANTOprazole 40 MG TAB PO SCH ×2 (08:33→20:21)
[2022-03-22] MEDS: busPIRone 5 MG TAB PO SCH ×2 (08:33→20:22)
[2022-03-22] MEDS: NYSTATIN SUSP 500,000 U/5 ML UDC PO SCH ×4 (08:34→20:21)
[2022-03-22] MEDS: CHOLECALCIFEROL 1,000 UNITS 25 MCG TAB PO SCH (08:34)
[2022-03-22] MEDS: UMECLIDINIUM/VILANTEROL 62.5/25MCG 7 PUFFS/INHALER INH SCH (08:34)
[2022-03-22] MEDS: FLUTICASONE FUROATE 100MCG 14 PUFFS/INHALER INH SCH (08:34)
[2022-03-22] MEDS: FLUTICASONE PROPIONATE NA SPR 16 GM BTL SCH (08:34)
[2022-03-22] MEDS: dexAMETHasone 6 MG in SYRINGE 0 ML IV SCH (08:35)
[2022-03-22] MEDS: FIRST - Mouthwash BLM 119 ML PO PRN (08:35)
[2022-03-22] MEDS: REMDESIVIR 100 MG in SODIUM CHLORIDE 0.9% 230 ML IV SCH (11:22)
--- NOTE | 2022-03-22 13:09 | Hospitalist Progress Note ---
Date of Service March 22, 2022 Assessment & Plan (1) Pneumonia due to COVID-19 virus: Plan: Some of his radiographic findings could be chronic, and some could be COVID pneumonia. Regardless overall he is very stable. Day #3 of IV dexamethasone 6mg daily. Day #3 of Remdesivir. CrCL remains >30; AST/ALT wnl. Cont flutter valve & incentive stefany. Cont duonebs. Lay on side if possible. Cont to treat anxiety. Counseled him that after discharge he likely will have 2+ weeks of ongoing recovery from his illness - CURRAN will remain for some time even with Rx. (2) Sore throat: Plan: Improved. Cont magic mouthwash q6h prn. Cont nystatin solution 5cc qid scheduled - swish/spit. (3) Anxiety: Plan: Improved. Cont buspar 5mg BID scheduled. Plan to use this after discharge as well. Tolerating without side effects. (4) Chronic respiratory failure with hypoxia: Plan: on home O2 - 4 L continuously O2 requirements here are at baseline except needs 5 L with activity this should improve w/ time s/p formal 2-step test yesterday (5) History of pulmonary embolus (PE): Plan: dx 02/2022 now on Eliquis 5mg BID (6) COPD with exacerbation: Plan: 2nd to #1 see above (7) BPH (benign prostatic hyperplasia): Plan: cont flomax (8) Rheumatoid arthritis: Plan: holding plaquenil for now due to Remdesivir usage (interaction) no flare or active disease resume plaquenil at d/c (9) Failure to thrive in adult: Plan: 2nd to COVID infection PT, OT evals appreciated once stable medically will be able to return home with daughter (10) Chronic renal failure, stage 3b: Plan: baseline CrCl 30s bmp am K level wnl today (11) Permanent atrial fibrillation: Plan: in NSR this admission cont Eliquis cont BB Plan: spoke with pt's daughter by phone yesterday - extensive update given left message for daughter on her voicemail today d/c tomorrow? dizziness - improved with lowering metoprolol xl to 50mg daily cont to observe get formal orthostatics Admission and Anticipated Discharge Date Admission Date: March 21, 2022 Subjective anxiety much better today -- essentially resolved breathing is similar to yesterday - comfortable at rest; has CURRAN with walking to bathroom; once in the bathroom he has to stop and recover for a period of time - much worse than typical baseline coughing with minimal sputum denies pain any location slept ok overnight eating well no fevers Review of Systems Review of Systems: gen - decent energy; no fevers or chills cv - no chest pain or orthopnea GI - no nausea or emesis pulm - no dyspnea at rest or pleuritic pain HENT - sore throat improved Physical Exam Physical Exam: gen - NAD, pleasant, no anxiety today - more calm today neck - no JVD mouth - MMM heart - RRR, s1 s2, 2/6 systolic murmur lungs - mild end-exp wheezes b/l remain; no increased work of breathing today abd - soft NT ND BS+ ext - no edema; pulses 2+ b/l psych - awake, alert, oriented x 3 Results & Data Results & Data ([facility]) Vital Signs (Past 12 Hours) Vital Signs Temp Pulse Resp BP Pulse Ox 03/22/22 11:24 84 18 93 03/22/22 08:30 36.7 C 86 16 113/64 92 03/22/22 07:34 80 16 92 Laboratory Results Laboratory Results - last 24 hr 03/22/22 06:10 Sodium 138 Potassium 4.6 Chloride 103 Carbon Dioxide 30 Anion Gap 5 BUN 37 H Creatinine 1.05 D Est Cr Clr Drug Dosing 40.5 Est GFR ( Amer) 77.9 Est GFR (Non-Af Amer) 67.2 BUN/Creatinine Ratio 35.2 H Glucose 83 Calcium 8.5 AST 30 ALT 19 PG Care Time/CCT Total # of Minutes Spent Total Time Spent with Patient: Total time spent is greater than 50% in coordination of care (as documented) at patient's floor/unit and/or counseling patient: Coding Level of Care Code 44466 Subseq Hosp Care Lvl 2 Diagnoses Pneumonia due to COVID-19 virus U07.1; J12.82 Sore throat J02.9 Anxiety F41.9 Chronic respiratory failure with hypoxia J96.11 History of pulmonary embolus (PE) Z86.711 COPD with exacerbation J44.1 BPH (benign prostatic hyperplasia) N40.0 Rheumatoid arthritis M06.9 Failure to thrive in adult R62.7 Chronic renal failure, stage 3b N18.32 Permanent atrial fibrillation I48.21
[2022-03-22] MEDS: METOPROLOL SUCC 50MG EXT REL TAB PO SCH (20:21)
[2022-03-22] MEDS: TAMSULOSIN HCL 0.4 MG CAP PO SCH (20:22)
[2022-03-22] MEDS: AMITRIPTYLINE HCL 25 MG TAB PO SCH (20:23)
[2022-03-22] MEDS: hydrOXYzine HCl 10 MG TAB PO PRN (20:23)
[2022-03-23] MEDS: oxyCODONE/ACETAMINOPHEN 5mg/325mg TAB PO PRN ×3 (06:07→20:28)
[2022-03-23] MEDS: ALBUT/IPRATROP 3MG/0.5MG NEB 3 ML VIAL INH SCH ×4 (07:36→19:42)
[2022-03-23] MEDS: APIXABAN 5 MG TABLET PO SCH ×2 (08:38→20:29)
[2022-03-23] MEDS: CALCIUM 600MG + VIT D 400 IU TAB PO SCH (08:39)
[2022-03-23] MEDS: busPIRone 5 MG TAB PO SCH ×3 (08:39→20:29)
[2022-03-23] MEDS: ASPIRIN 81 MG ECTAB PO SCH (08:39)
[2022-03-23] MEDS: FLUTICASONE FUROATE 100MCG 14 PUFFS/INHALER INH SCH (08:40)
[2022-03-23] MEDS: CYANOCOBALAMIN (B-12) 500 MCG TABLET PO SCH (08:40)
[2022-03-23] MEDS: CHOLECALCIFEROL 1,000 UNITS 25 MCG TAB PO SCH (08:40)
[2022-03-23] MEDS: FLUTICASONE PROPIONATE NA SPR 16 GM BTL SCH (08:41)
[2022-03-23] MEDS: dexAMETHasone 6 MG in SYRINGE 0 ML IV SCH (08:41)
[2022-03-23] MEDS: MAGNESIUM OXIDE 400 MG TAB PO SCH (08:41)
[2022-03-23] MEDS: MULTIVITAMIN TAB PO SCH (08:41)
[2022-03-23 08:42] LABS: BUN Creatinine Ratio 33.3 (10-20); Calcium 8.8 mg/dl (8.5-10.1); Creatinine Clr Calc Pharmacy 40.5 ml/min; Est GFR (African American) 77.9 ml/min; Est GFR (Non-African American) 67.2 ml/min; Potassium 4.4 mmol/L (3.5-5.1)
[2022-03-23] MEDS: PANTOprazole 40 MG TAB PO SCH ×2 (08:42→20:29)
[2022-03-23] MEDS: UMECLIDINIUM/VILANTEROL 62.5/25MCG 7 PUFFS/INHALER INH SCH (08:42)
[2022-03-23] MEDS: NYSTATIN SUSP 500,000 U/5 ML UDC PO SCH ×4 (08:43→20:28)
[2022-03-23] MEDS: hydrOXYzine HCl 10 MG TAB PO PRN (10:15)
[2022-03-23] MEDS ORDERED: FUROSEMIDE INJ 20 MG/2 ML VIAL IV ONE (11:46)
--- NOTE | 2022-03-23 11:48 | Hospitalist Progress Note ---
Date of Service March 23, 2022 Assessment & Plan (1) Pneumonia due to COVID-19 virus: Plan: Hemodynamically stable; o2 sats and o2 requirement stable. But having significant symptoms especially chest congestion and CURRAN. Day #4 of IV dexamethasone 6mg daily. Could consider modest dose increase if symptoms are refractory. Day #4 of Remdesivir. CrCL remains >30; AST/ALT wnl. Cont flutter valve & incentive stefany. Cont duonebs. Lay on side if possible. Cont to treat anxiety. Repeat a cxr today to r/o pneumonia progression. Lasix 20mg IV x 1. Add chest percussion vest therapy BID. Add mucinex 1200mg BID. Counseled him that after discharge he likely will have 2+ weeks of ongoing recovery from his illness - CURRAN will remain for some time even with Rx. (2) Sore throat: Plan: Improved/resolved. Cont magic mouthwash q6h prn. Cont nystatin solution 5cc qid scheduled - swish/spit. (3) Anxiety: Plan: Ongoing. increase buspar to 5mg TID scheduled. Plan to use this after discharge as well. Tolerating without side effects. (4) Chronic respiratory failure with hypoxia: Plan: on home O2 - 4 L continuously O2 requirements here are at baseline except needs 5 L with activity (on the previous 2-step but that was done a few days ago) this should improve w/ time will need another 2-step on day of discharge (5) History of pulmonary embolus (PE): Plan: dx 02/2022 now on Eliquis 5mg BID (6) COPD with exacerbation: Plan: 2nd to #1 see above (7) BPH (benign prostatic hyperplasia): Plan: cont flomax (8) Rheumatoid arthritis: Plan: holding plaquenil for now due to Remdesivir usage (interaction) no flare or active disease resume plaquenil after Remdesivir course is complete (9) Failure to thrive in adult: Plan: 2nd to COVID infection PT, OT evals appreciated cont such (10) Chronic renal failure, stage 3b: Plan: baseline CrCl 30s bmp am (11) Permanent atrial fibrillation: Plan: in NSR this admission cont Eliquis cont BB Plan: spoke with pt's daughter by phone again today - update given cont supportive care of #1 Admission and Anticipated Discharge Date Admission Date: March 21, 2022 Subjective patient states that for about 2 hours this am he was very congested in his chest and was short of breath because of such he ultimately got some mucous up and felt better continues to have to rest for about 2 minutes after doing any ambulation for his breathing settles down appetite remains good cont with anxiety but buspar does help cough continues no dyspnea at rest no chest pain no abd pain denies any dizziness Review of Systems Review of Systems: gen - no fevers or chills; fatigue present cv - no orthopnea pulm - no hemoptysis GI - no vomiting or nausea Physical Exam Physical Exam: gen - NAD, pleasant, coughing quite a bit during the encounter but not dyspneic neck - no JVD mouth - MMM; no obvious thrush today heart - RRR, s1 s2, 2/6 systolic murmur lungs - mild end-exp wheezes b/l remain; no increased work of breathing today; airation fair at best; decreased BS bases abd - soft NT ND BS+ ext - no edema; pulses 2+ b/l psych - awake, alert, oriented x 3; a little anxious Results & Data Results & Data ([facility]) Vital Signs (Past 12 Hours) Vital Signs Temp Pulse Resp BP Pulse Ox 03/23/22 10:59 97 H 18 93 03/23/22 08:33 37.0 C 96 H 18 129/75 94 03/23/22 07:36 94 H 20 93 Laboratory Results BMP wnl ast/alt wnl PG Care Time/CCT Total # of Minutes Spent Total Time Spent with Patient: Total time spent is greater than 50% in coordination of care (as documented) at patient's floor/unit and/or counseling patient: Coding Level of Care Code 10413 Subseq Hosp Care Lvl 3 Diagnoses Pneumonia due to COVID-19 virus U07.1; J12.82 Sore throat J02.9 Anxiety F41.9 Chronic respiratory failure with hypoxia J96.11 History of pulmonary embolus (PE) Z86.711 COPD with exacerbation J44.1 BPH (benign prostatic hyperplasia) N40.0 Rheumatoid arthritis M06.9 Failure to thrive in adult R62.7 Chronic renal failure, stage 3b N18.32 Permanent atrial fibrillation I48.21
[2022-03-23] MEDS: REMDESIVIR 100 MG in SODIUM CHLORIDE 0.9% 230 ML IV SCH (12:16)
--- NOTE | 2022-03-23 12:16 | XRay Report ---
XR chest 1V portable CLINICAL HISTORY: COVID, hypoxia, eval for pneumonia. COMPARISON STUDY: 03/21/2022 TECHNIQUE: 1 view of the chest FINDINGS: Single frontal view of the chest demonstrates the cardiomediastinal silhouette to be within normal li mits. There is hyperinflation of the lungs with attenuation of the pulmonary vasculature peripherally characteristic of underlying chronic obstructive pulmonary disease. The lungs are clear of alveolar opacities. There is no evidence for pleural effusion. There is no evidence for vascular congestion. T here is no acute osseous pathology. Old rib fractures again seen on the right. IMPRESSION: 1. No acute cardiopulmonary disease. 2. There is again evidence for underlying COPD. ACT 112: Negative or not required by law. Electronically signed by: Dakota Godoy M.D. 03/23/2022 12:13 PM
[2022-03-23] MEDS: guaiFENesin 600 MG TABCR PO SCH ×2 (13:23→20:29)
[2022-03-23] MEDS: METOPROLOL SUCC 50MG EXT REL TAB PO SCH (20:28)
[2022-03-23] MEDS: AMITRIPTYLINE HCL 25 MG TAB PO SCH (20:29)
[2022-03-23] MEDS: TAMSULOSIN HCL 0.4 MG CAP PO SCH (20:29)
[2022-03-24] MEDS: oxyCODONE/ACETAMINOPHEN 5mg/325mg TAB PO PRN ×3 (04:37→21:55)
[2022-03-24] MEDS: hydrOXYzine HCl 10 MG TAB PO PRN ×2 (04:37→21:40)
[2022-03-24 06:57] LABS: Alanine Aminotransferase 26 U/L (7-52); Aspartate Aminotransferase 27 U/L (13-39)
[2022-03-24 06:58] LABS: BUN Creatinine Ratio 34.8 (10-20); Calcium 8.4 mg/dl (8.5-10.1); Est GFR (Non-African American) 62.1 ml/min; Potassium 4.2 mmol/L (3.5-5.1)
[2022-03-24] MEDS: ALBUT/IPRATROP 3MG/0.5MG NEB 3 ML VIAL INH SCH ×4 (07:19→19:48)
[2022-03-24] MEDS: busPIRone 5 MG TAB PO SCH ×3 (09:11→21:40)
[2022-03-24] MEDS: ASPIRIN 81 MG ECTAB PO SCH (09:11)
[2022-03-24] MEDS: CHOLECALCIFEROL 1,000 UNITS 25 MCG TAB PO SCH (09:11)
[2022-03-24] MEDS: APIXABAN 5 MG TABLET PO SCH ×2 (09:11→21:41)
[2022-03-24] MEDS: CALCIUM 600MG + VIT D 400 IU TAB PO SCH (09:11)
[2022-03-24] MEDS: CYANOCOBALAMIN (B-12) 500 MCG TABLET PO SCH (09:11)
[2022-03-24] MEDS: UMECLIDINIUM/VILANTEROL 62.5/25MCG 7 PUFFS/INHALER INH SCH (09:12)
[2022-03-24] MEDS: dexAMETHasone 6 MG in SYRINGE 0 ML IV SCH (09:12)
[2022-03-24] MEDS: FLUTICASONE PROPIONATE NA SPR 16 GM BTL SCH (09:12)
[2022-03-24] MEDS: guaiFENesin 600 MG TABCR PO SCH ×2 (09:12→21:41)
[2022-03-24] MEDS: AZITHROMYCIN 250 MG TAB PO SCH (09:12)
[2022-03-24] MEDS: MAGNESIUM OXIDE 400 MG TAB PO SCH (09:12)
[2022-03-24] MEDS: PANTOprazole 40 MG TAB PO SCH ×2 (09:12→21:41)
[2022-03-24] MEDS: MULTIVITAMIN TAB PO SCH (09:12)
[2022-03-24] MEDS: NYSTATIN SUSP 500,000 U/5 ML UDC PO SCH ×5 (09:12→21:46)
[2022-03-24] MEDS: FLUTICASONE FUROATE 100MCG 14 PUFFS/INHALER INH SCH (09:13)
[2022-03-24] MEDS: REMDESIVIR 100 MG in SODIUM CHLORIDE 0.9% 230 ML IV SCH (12:41)
--- NOTE | 2022-03-24 21:11 | Hospitalist Progress Note ---
Date of Service March 24, 2022 Assessment & Plan (1) Pneumonia due to COVID-19 virus: Plan: Hemodynamically stable; o2 sats and o2 requirement stable (is on his usual, chronic 4 L NC O2 continuously). But still having significant CURRAN as I personally witnessed today. Day #5 of IV dexamethasone 6mg daily. Change to PO dex in am. Day #5 of Remdesivir. Stop after today's dose. CrCL remains >30; AST/ALT wnl. Cont flutter valve & incentive stefany. Cont duonebs. Lay on side if possible. Cont to treat anxiety. Most recent cxr stable. Gave Lasix 20mg IV x 1 yesterday without any significant change clinically. Cont chest percussion vest therapy BID. Cont mucinex 1200mg BID. Counseled him that after discharge he likely will have 2+ weeks of ongoing recovery from his illness - CURRAN will remain for some time even with Rx. If he was to d/c home tomorrow will need to repeat a 2-step ambulatory O2 test. (2) Sore throat: Plan: Resolved. Cont magic mouthwash q6h prn. Cont nystatin solution 5cc qid scheduled - swish/spit. (3) Anxiety: Plan: Ongoing but improved with Buspar 5mg TID scheduled. Plan to use this after discharge as well. Tolerating without side effects. (4) Chronic respiratory failure with hypoxia: Plan: chronic resp failure 2nd to COPD. he is on chronic prednisone at home -- 5mg daily. on home O2 - 4 L continuously. O2 requirements here are at baseline except needs 5 L with activity (on the previous 2-step but that was done a few days ago). will need another 2-step on day of discharge. 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 now on Eliquis 5mg BID. (6) COPD with exacerbation: Plan: 2nd to #1 see above of note - after a slow dexamethasone taper he will need to resume his usual prednisone dose of 5mg/day - this is chronic for him. of note - he is on 3 days/week azithromycin - continue such (7) BPH (benign prostatic hyperplasia): Plan: cont flomax (8) Rheumatoid arthritis: Plan: resume plaquenil tomorrow since Remdesivir course is complete. no flare or active disease at this time. (9) Failure to thrive in adult: Plan: 2nd to COVID infection PT, OT slade appreciated cont such can d/c home with home health based on therapy slade (10) Chronic renal failure, stage 3b: Plan: baseline CrCl 30s Creatinine continues to remain stable (11) Permanent atrial fibrillation: Plan: in NSR this admission cont Monie cont metoprolol succinate 50mg daily - had been on 100mg daily but he was reporting lightheadedness with standing (and BPs intermittently have been low) cont this lower dose Plan: spoke with pt's daughter by phone again today - update given I told her I'm hopeful for d/c home tomorrow for her father she understands that he will have dyspnea on exertion for a few more weeks as he continues to recover from COVID patient has had anxiety related to recent discussions about him leaving his home and going to live at the [facility] near [place] this has been distressing to him apparently his daughter travels frequently for work and she feels he needs more help than the family can give him Admission and Anticipated Discharge Date Admission Date: March 21, 2022 Subjective patient feeling "ok" his IV blew earlier today (after IV Remdesivir & dexamethasone was done) and he did not want a new one placed he spoke with his grand-daughter who was traveling today and he got very depressed and was crying he admits it is hard to be alone in isolation and misses his family continues to cough - minimal sputum production only has had 2 episodes of sputum last 2 days is tolerating chest physiotherapy vibration vest thinks the mucinex helps more than anything while we were talking he suddenly had to void he jumped out of bed and quickly walked to the bathroom unassisted and without difficulty he was able to void and wash up without any help after doing all of this he was winded and had to stop for about 20 minutes to catch his breath he walked back to bed, got in the bed unassisted, and had to stop for about 1 minute or so to catch his breath when asked how he feels relative to admission he says "a lot better" when asked how he feels relative to his typical baseline he says "I'm 75%" Review of Systems Review of Systems: gen - no fevers, no chills; eating well cv - no cp, no orthopnea pulm - cough, dyspnea with exertion, no dyspnea at rest; mild wheezing GI - no abd pain, nausea, emesis; had normal bowel movement this am Physical Exam Physical Exam: gen - NAD, pleasant; had dyspnea with exertion with walking to bathroom (see HPI) neck - no JVD mouth - MMM; no obvious thrush or lesions heart - RRR, s1 s2, 2/6 systolic murmur lungs - mild end-exp wheezes b/l - no change; tachypnea with dyspnea after walking; minimal rales bases; airation fair/good abd - soft NT ND BS+ ext - no edema; pulses 2+ b/l psych - awake, alert, oriented x 3; anxiety controlled Results & Data Results & Data ([facility]) Vital Signs (Past 12 Hours) Vital Signs Temp Pulse Resp BP Pulse Ox Pulse Ox 03/24/22 19:48 96 H 18 92 03/24/22 15:00 97 03/24/22 14:55 97 H 18 93 03/24/22 14:43 36.9 C 81 17 106/68 97 03/24/22 11:39 84 16 96 Laboratory Results Laboratory Results - last 24 hr 03/24/22 03/24/22 06:00 06:00 Sodium 139 Potassium 4.2 Chloride 105 Carbon Dioxide 29 Anion Gap 5 BUN 39 H Creatinine 1.12 Est Cr Clr Drug Dosing 38.0 Est GFR ( Amer) 72.0 Est GFR (Non-Af Amer) 62.1 BUN/Creatinine Ratio 34.8 H Glucose 95 Calcium 8.4 L Magnesium 2.0 AST 27 ALT 26 PG Care Time/CCT Total # of Minutes Spent Total Time Spent with Patient: Total time spent is greater than 50% in coordination of care (as documented) at patient's floor/unit and/or counseling patient: Coding Level of Care Code 10238 Subseq Hosp Care Lvl 2 Diagnoses Pneumonia due to COVID-19 virus U07.1; J12.82 Sore throat J02.9 Anxiety F41.9 Chronic respiratory failure with hypoxia J96.11 History of pulmonary embolus (PE) Z86.711 COPD with exacerbation J44.1 BPH (benign prostatic hyperplasia) N40.0 Rheumatoid arthritis M06.9 Failure to thrive in adult R62.7 Chronic renal failure, stage 3b N18.32 Permanent atrial fibrillation I48.21
[2022-03-24] MEDS: TAMSULOSIN HCL 0.4 MG CAP PO SCH (21:40)
[2022-03-24] MEDS: METOPROLOL SUCC 50MG EXT REL TAB PO SCH (21:40)
[2022-03-24] MEDS: AMITRIPTYLINE HCL 25 MG TAB PO SCH (21:41)
[2022-03-25] MEDS: oxyCODONE/ACETAMINOPHEN 5mg/325mg TAB PO PRN ×3 (06:33→22:56)
[2022-03-25] MEDS: ALBUT/IPRATROP 3MG/0.5MG NEB 3 ML VIAL INH SCH ×2 (07:11→19:15)
[2022-03-25 08:18] LABS: Est GFR (African American) 74.4 ml/min; Est GFR (Non-African American) 64.2 ml/min
[2022-03-25] MEDS: CYANOCOBALAMIN (B-12) 500 MCG TABLET PO SCH (09:49)
[2022-03-25] MEDS: APIXABAN 5 MG TABLET PO SCH ×2 (09:49→21:47)
[2022-03-25] MEDS: ASPIRIN 81 MG ECTAB PO SCH (09:49)
[2022-03-25] MEDS: CHOLECALCIFEROL 1,000 UNITS 25 MCG TAB PO SCH (09:49)
[2022-03-25] MEDS: busPIRone 5 MG TAB PO SCH ×3 (09:49→21:46)
[2022-03-25] MEDS: CALCIUM 600MG + VIT D 400 IU TAB PO SCH (09:49)
[2022-03-25] MEDS: UMECLIDINIUM/VILANTEROL 62.5/25MCG 7 PUFFS/INHALER INH SCH (09:50)
[2022-03-25] MEDS: FLUTICASONE PROPIONATE NA SPR 16 GM BTL SCH (09:50)
[2022-03-25] MEDS: MULTIVITAMIN TAB PO SCH (09:50)
[2022-03-25] MEDS: HYDROXYCHLOROQUINE SULFATE 200 MG TAB PO SCH (09:50)
[2022-03-25] MEDS: guaiFENesin 600 MG TABCR PO SCH ×2 (09:50→21:46)
[2022-03-25] MEDS: dexAMETHasone 4 MG TAB PO SCH (09:50)
[2022-03-25] MEDS: NYSTATIN SUSP 500,000 U/5 ML UDC PO SCH ×4 (09:50→21:47)
[2022-03-25] MEDS: MAGNESIUM OXIDE 400 MG TAB PO SCH (09:50)
[2022-03-25] MEDS: PANTOprazole 40 MG TAB PO SCH ×2 (09:51→21:45)
[2022-03-25] MEDS: FLUTICASONE FUROATE 100MCG 14 PUFFS/INHALER INH SCH (09:51)
--- NOTE | 2022-03-25 16:29 | Hospitalist Progress Note ---
Date of Service March 25, 2022 Assessment & Plan (1) Pneumonia due to COVID-19 virus: Plan: Hemodynamically stable; o2 sats and o2 requirement stable (is on his usual, chronic 4 L NC O2 continuously). Prolonged recovery due to feeling dyspneic with underlying severe COPD SYmptoms started 03/09/22 CXR without PNA continue dexamethsone 6mg daily through 10 day course-through 03/29 completed 5 days of Remdesivir Cont flutter valve & incentive stefany. Cont duonebs. Lay on side if possible. Cont to treat anxiety. Most recent cxr stable. diuresis as needed Cont chest percussion vest therapy BID-discontinued due to pt request Cont mucinex 1200mg BID. - repeat a 2-step ambulatory O2 test prior to discharge likely tomorrow (2) Sore throat: Plan: Resolved. Cont magic mouthwash q6h prn. Cont nystatin solution 5cc qid scheduled - swish/spit. (3) Anxiety: Plan: Ongoing but improved with Buspar 5mg TID scheduled. Plan to use this after discharge as well. Tolerating without side effects. (4) Chronic respiratory failure with hypoxia: Plan: chronic resp failure 2nd to COPD. he is on chronic prednisone at home -- 5mg daily. on home O2 - 4 L continuously. O2 requirements here are at baseline except needs 5 L with activity (on the previous 2-step but that was done a few days ago). will need another 2-step on day of discharge. 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 now on Eliquis 5mg BID. (6) COPD with exacerbation: Plan: 2/2 COVID of note - after a slow dexamethasone taper he will need to resume his usual prednisone dose of 5mg/day - this is chronic for him. of note - he is on 3 days/week azithromycin - continue such (7) BPH (benign prostatic hyperplasia): Plan: cont flomax (8) Rheumatoid arthritis: Plan: resumed plaquenil now that Remdesivir course is complete. no flare or active disease at this time. (9) Failure to thrive in adult: Plan: 2nd to COVID infection PT, OT evals appreciated cont such can d/c home with home health based on therapy evals (10) Chronic renal failure, stage 3b: Plan: baseline CrCl 30s Creatinine continues to remain stable (11) Permanent atrial fibrillation: Plan: in NSR this admission cont Monie mota metoprolol succinate 50mg daily - had been on 100mg daily but he was reporting lightheadedness with standing (and BPs intermittently have been low) cont this lower dose after discharge Plan: Dispo-plan to dc to home tomorrow patient has had anxiety related to recent discussions about him leaving his home and going to live at the [facility] near [place] this has been distressing to him apparently his daughter travels frequently for work and she feels he needs more help than the family can give him Admission and Anticipated Discharge Date Admission Date: March 21, 2022 Subjective Pt feeling better but still SOB over his baseline. No CP, no nausea but has low appetite. Moving bowels, making urine but feels some burning with urination today. Review of Systems Review of Systems: All systems reviewed & are unremarkable except as noted in HPI & below Physical Exam Constitutional: WD/WN, vitals as above Eyes: + anicteric sclerae Neck: trachea midline, no thyromegaly Respiratory: normal respiratory effort, lungs clear to auscultation (diminished throughout) Cardiovascular: RRR, no murmur, no edema Chest (Breasts): Chest: normal inspection of chest Gastrointestinal (Abdomen): normal bowel sounds, soft, nontender, no hepatosplenomegaly Musculoskeletal: Extremities: extremities normal to inspection; no cyanosis and no clubbing Skin: no rashes, warm and dry Neurologic: moves all extremities and awake; no focal motor deficits Psychiatric: A+Ox3, euthymic affect Lymphatic: no lymphedema Results & Data Results & Data ([facility]) Vital Signs (Past 12 Hours) Vital Signs Temp Pulse Resp BP Pulse Ox 03/25/22 15:06 36.5 C 94 H 20 105/69 96 03/25/22 08:53 36.4 C L 84 16 129/68 93 03/25/22 07:11 81 16 94 Laboratory Results 03/25/22 Range/Units 07:11 Creatinine 1.09 (0.6-1.4) mg/dl Est Cr Clr Drug Dosing 39.0 ml/min Est GFR ( Amer) 74.4 ml/min Est GFR (Non-Af Amer) 64.2 ml/min AST 23 (13-39) U/L ALT 24 (7-52) U/L PG Care Time/CCT Total # of Minutes Spent Total Time Spent with Patient: Total time spent is greater than 50% in coordination of care (as documented) at patient's floor/unit and/or counseling patient: Coding Level of Care Code 80695 Subseq Hosp Care Lvl 2 Diagnoses Pneumonia due to COVID-19 virus U07.1; J12.82 Sore throat J02.9 Anxiety F41.9 Chronic respiratory failure with hypoxia J96.11 History of pulmonary embolus (PE) Z86.711 COPD with exacerbation J44.1 BPH (benign prostatic hyperplasia) N40.0 Rheumatoid arthritis M06.9 Failure to thrive in adult R62.7 Chronic renal failure, stage 3b N18.32 Permanent atrial fibrillation I48.21
[2022-03-25 17:51] LABS: Appearance Urine Clear (Clear); Bilirubin Urine Negative (Negative); Blood Urine Negative (Negative); Color Urine Yellow; Glucose Urine UA Negative (Negative); Ketones Urine Negative (Negative); Leukocyte Esterase Urine Negative (Negative); Nitrite Urine Negative (Negative); Protein Urine Negative (Negative); Specific Gravity Urine 1.025 (1.000-1.030); Urobilinogen Urine Negative (Negative)
[2022-03-25] MEDS: METOPROLOL SUCC 50MG EXT REL TAB PO SCH (21:45)
[2022-03-25] MEDS: TAMSULOSIN HCL 0.4 MG CAP PO SCH (21:45)
[2022-03-25] MEDS: hydrOXYzine HCl 10 MG TAB PO PRN (21:46)
[2022-03-25] MEDS: AMITRIPTYLINE HCL 25 MG TAB PO SCH (21:47)
[2022-03-26] MEDS: oxyCODONE/ACETAMINOPHEN 5mg/325mg TAB PO PRN ×2 (06:00→14:42)
[2022-03-26] MEDS: ALBUT/IPRATROP 3MG/0.5MG NEB 3 ML VIAL INH SCH (07:18)
[2022-03-26 07:55] LABS: Hematocrit (blood only) 34.6 % (42-52); Hemoglobin 11.2 g/dL (14.0-18.0); Mean Corpuscular Hemoglobin 30.3 pg (25-34); Mean Corpuscular Hgb Conc 32.4 g/dL (32-36); Mean Corpuscular Volume 93.5 fL (80-100); Mean Platelet Volume 9.9 fL (7.4-10.4); Platelet Count 293 K/uL (130-400); RDW Coefficient of Variation 13.1 % (11.5-14.5); RDW Standard Deviation 45.2 fL (36.4-46.3); White Blood Count 8.31 K/uL (4.8-10.8)
[2022-03-26] MEDS: CYANOCOBALAMIN (B-12) 500 MCG TABLET PO SCH (10:05)
[2022-03-26] MEDS: ASPIRIN 81 MG ECTAB PO SCH (10:05)
[2022-03-26] MEDS: CALCIUM 600MG + VIT D 400 IU TAB PO SCH (10:05)
[2022-03-26] MEDS: APIXABAN 5 MG TABLET PO SCH (10:05)
[2022-03-26] MEDS: busPIRone 5 MG TAB PO SCH ×2 (10:05→14:43)
[2022-03-26] MEDS: hydrOXYzine HCl 10 MG TAB PO PRN (10:05)
[2022-03-26] MEDS: NYSTATIN SUSP 500,000 U/5 ML UDC PO SCH ×2 (10:05→14:43)
[2022-03-26] MEDS: CHOLECALCIFEROL 1,000 UNITS 25 MCG TAB PO SCH (10:05)
[2022-03-26] MEDS: MAGNESIUM OXIDE 400 MG TAB PO SCH (10:06)
[2022-03-26] MEDS: PANTOprazole 40 MG TAB PO SCH (10:06)
[2022-03-26] MEDS: dexAMETHasone 4 MG TAB PO SCH (10:06)
[2022-03-26] MEDS: AZITHROMYCIN 250 MG TAB PO SCH (10:06)
[2022-03-26] MEDS: guaiFENesin 600 MG TABCR PO SCH (10:06)
[2022-03-26] MEDS: MULTIVITAMIN TAB PO SCH (10:06)
[2022-03-26] MEDS: HYDROXYCHLOROQUINE SULFATE 200 MG TAB PO SCH (10:06)
[2022-03-26] MEDS: FLUTICASONE FUROATE 100MCG 14 PUFFS/INHALER INH SCH (10:07)
[2022-03-26] MEDS: FLUTICASONE PROPIONATE NA SPR 16 GM BTL SCH (10:07)
[2022-03-26] MEDS: UMECLIDINIUM/VILANTEROL 62.5/25MCG 7 PUFFS/INHALER INH SCH (10:07)
[2022-03-26] MEDS ORDERED: hydrOXYzine HCl 10 MG TAB PO PRN (10:51)
--- NOTE | 2022-03-26 11:27 | Discharge Summary ---
Date of Service March 26, 2022 Admission HPI Per Admitting Provider This is a 81-year-old male with past medical history of chronic hypoxic respiratory failure on 4 L nasal cannula chronically, atrial fibrillation that presents with complaint of fatigue/failure to thrive. Patient's daughter is in the room and gives some history. Patient states that over the past 3 days he has been feeling very fatigued. He has been having difficulty ambulating. He notes that he is more short of breath and has an occasional cough with thick white sputum. Daughter notes the patient has had a very poor appetite and has lost some weight recently, currently following at the [place] and has been seeing glassie, but that this is a longer standing issue. Patient denies any fever, nausea or vomiting, diarrhea or constipation. He does note that his mouth is very dry but no changes in his urination. Patient was sent to the hospital after his visiting nurse thought that he looked pale and weaker than usual but work-up was essentially unremarkable in the emergency room. However, family is concerned that he may get worse overnight and are requesting that he be placed in observation here. At the time my evaluation, patient's vitals were appropriate. His O2 sat was 92-95% on his baseline 4 L nasal cannula. (The daughter did note that he will occasionally desat to the 70s at home but no evidence of that was seen here.) Lab work was unremarkable outside of some mild azotemia. Principal Diagnosis COPD Exacerbation, COVID-19 Discharge Exam Constitutional WD/WN, vitals as above Eyes + anicteric sclerae Neck trachea midline, no thyromegaly Respiratory normal respiratory effort, lungs clear to auscultation (diminished throughout) Cardiovascular RRR, no murmur, no edema Chest (Breasts) Chest: normal inspection of chest Gastrointestinal (Abdomen) normal bowel sounds, soft, nontender, no hepatosplenomegaly Musculoskeletal Extremities: extremities normal to inspection; no cyanosis and no clubbing Skin no rashes, warm and dry Neurologic moves all extremities and awake; no focal motor deficits Psychiatric A+Ox3, euthymic affect Lymphatic no lymphedema Discharge Data Allergies Allergy/AdvReac Type Severity Reaction Status Date / Time No Known Allergies Allergy Verified 03/19/22 16:01 Consultations 03/19/22 18:00 ED Decision to Admit Stat Ordered Studies 03/19/22 15:15 CT head/brain wo con Stat Hospital Course (1) Pneumonia due to COVID-19 virus: Hemodynamically stable; o2 sats and o2 requirement stable (is on his usual, chronic 4 L NC O2 continuously). Prolonged recovery due to feeling dyspneic with underlying severe COPD SYmptoms started 03/09/22 CXR without PNA continue dexamethsone 6mg daily through 10 day course-through 03/28 completed 5 days of Remdesivir Cont flutter valve & incentive stefany. Cont duonebs. Cont to treat anxiety. Most recent cxr stable. resume home lasix po chest percussion vest therapy BID-discontinued due to pt request Cont mucinex 1200mg BID. -continue home O2 4LNC--> POx was 97% at rest on this amount Improved overall, stable for dc to home (2) Sore throat: Resolved. Cont nystatin solution 5cc qid scheduled - swish/spit x 7 more days on discharge (3) Anxiety: Ongoing but improved with Buspar 5mg TID scheduled which was added on this admission Plan to use this after discharge as well. Tolerating without side effects. Continue Vistaril prn (4) Chronic respiratory failure with hypoxia: chronic resp failure 2nd to COPD. he is on chronic prednisone at home -- 5mg daily. 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 now on Eliquis 5mg BID. (6) COPD with exacerbation: 2/ COVID continue 10 day course of dexamethasone and then resume his usual prednisone dose of 5mg/day - this is chronic for him. of note - he is on 3 days/week azithromycin - continue such (7) BPH (benign prostatic hyperplasia): cont flomax (8) Rheumatoid arthritis: resumed plaquenil now that Remdesivir course is complete. no flare or active disease at this time. (9) Failure to thrive in adult: 2nd to COVID infection Improved. Eating well (10) Chronic renal failure, stage 3b: baseline CrCl 30s Creatinine continues to remain stable (11) Permanent atrial fibrillation: in NSR this admission cont Eliquis cont metoprolol succinate 50mg daily - had been on 100mg daily but he was reporting lightheadedness with standing (and BPs intermittently have been low) cont this lower dose after discharge Dispo-plan to dc to home today patient has had anxiety related to recent discussions about him leaving his home and going to live at the [facility] near [place] this has been distressing to him apparently his daughter travels frequently for work and she feels he needs more help than the family can give him I certify that this patient is under my care and that I, or a physicians residential real estate assistant working with me, had a face to-face encounter that meets the home health [id number] encounter requirements with this patient. The encounter with the patient was in whole, or in part, for the following medical condition, which is the primary reason for home health care (list medical condition): Resumption of care, nursing only I certify that, based on my findings, the following services are medically necessary home health services: My clinical findings support the need for the above services because: Caregiver Instruct Med Mgmt, Safety, Disease Process, Signs to Report Home Safety Assessment Hydration / Nutrition Medication Compliance and Monitoring Effective of New Medications Oxygen Safety and Management Skilled Nsg Assess Pt Illness, Disease and Sx Monitoring Teach on Disease Management and Interventions Vital Signs Further, I certify that my clinical findings support that this patient is homebound (i.e. absences from home require considerable and taxing effort and are for medical reasons or latter day services or infrequently or of short duration when for other reasons) because: Supportive Aid - Walker Certification for Home Health Services: Based on the above findings, I certify that this patient is confined to the home and needs intermittent jail care, physical therapy and/or speech ther apy or continues to need occupational therapy. The patient is under my care, and I have initiated the establishment of the plan of care. This patient will be followed by a physician who will periodically review the plan of care. Total Time Total Time Spent Total Time Spent (In Minutes): 40 min Discharge Plan Discharge Items Patient Disposition: Home - Home Health Services Reason For Visit: FAILURE TO THRIVE, COVID Discharge Diagnosis: COVID-19, COPD Exacerbation Condition on Discharge: Fair Activity: As commented below Lifting: Gradually increase as tolerated Bathing: No limitations Exercise/Sports: Gradually increase as tolerated Non-emergency contact: Primary Care Provider Call non-emergency contact if: you have any medication questions, your symptoms worsen, you have a fever and your temperature is above 101 Follow-up/Referrals: Paulette Johnson PA-C [Primary Care Provider] - (PCP IS [facility]-PATENT WILL CALL TO SCHEDULE HIS OWN HOSPITAL FOLLOW UP APPOINTMENT.) Diet: Heart Healthy Addtl Attending Provider Instructions: Please finish out 2 more days of dexamethasone once daily ( a higher dose steroid) and then return to your usual prednisone 5mg daily after that. Your blood pressure was on the lower side of normal and you were feeling lightheaded at times--> therefore, your metoprolol dose was cut in half down to 50mg daily. You were also started on a new medication for anxiety called buspirone 5mg three times a day. Follow up with your PCP within 1-2 weeks. It was a pleasure taking care of you! Laura Corona M.D. Pending Studies at Discharge: No Stand-Alone Forms: [facility], Smoking Cessation Medications and DC Order Prescriptions: New nystatin 100,000 unit/mL Suspension 5 ml PO QID 7 Days Qty: 140 RF: 0 buspirone 5 mg Tablet 5 mg PO TID Qty: 90 RF: 0 dexamethasone 6 mg tablet 6 mg PO DAILY Qty: 2 RF: 0 Continued magnesium oxide 420 mg tablet 420 mg PO QAM RF: 0 Stiolto Respimat 2.5-2.5 mcg/actuation mist 2 puff inhalation DAILY RF: 0 multivitamin Tablet 1 tab PO QAM RF: 0 prednisone 5 mg Tablet 5 mg PO DAILY RF: 0 oxycodone-acetaminophen [Percocet] 5-325 mg Tablet 1 tab PO QID PRN (Reason: mod-severe pain) RF: 0 tamsulosin 0.4 mg Capsule 0.4 mg PO HS RF: 0 pantoprazole 40 mg Tablet,Delayed Release (Dr/Ec) 40 mg PO AMPM RF: 0 furosemide 20 mg Tablet 20 mg PO QAM RF: 0 hydroxychloroquine 200 mg Tablet 200 mg PO QAM RF: 0 hydroxyzine HCl 10 mg Tablet 10 mg PO Q12 PRN (Reason: Anxiety) RF: 0 calcium carbonate-vitamin D3 [Calcium 500 + D] 500 mg(1,250mg) -200 unit Tablet 1 tab PO QAM RF: 0 mometasone 220 mcg/ actuation (60) Aerosol Powdr Breath Activated 1 inh INHALATION DAILY RF: 0 amitriptyline 25 mg Tablet 25 mg PO HS RF: 0 Eliquis 5 mg tablet 5 mg PO Q12 RF: 0 cholecalciferol (vitamin D3) [Vitamin D3] 50 mcg (2,000 unit) Tablet 50 mcg PO DAILY RF: 0 aspirin [Aspirin Low-Strength] 81 mg Tablet,Delayed Release (Dr/Ec) 81 mg PO QAM RF: 0 ipratropium-albuterol 0.5 mg-3 mg(2.5 mg base)/3 mL Solution For Nebulization 3 ml INHALATION QID PRN (Reason: Shortness Of Breath Or Wheezing) RF: 0 fluticasone propionate 50 mcg/actuation [place],Suspension 2 spray INTRANASAL DAILY RF: 0 azithromycin 250 mg Tablet 250 mg PO 3XWK RF: 0 nitroglycerin 0.4 mg Tablet, Sublingual 0.4 mg sublingual UD PRN (Reason: Chest Pain) RF: 0 naloxone [Narcan] 4 mg/actuation [place],Non-Aerosol 4 mg INTRANASAL UD PRN (Reason: PAIN MEDICATION OVERLOAD) RF: 0 cyanocobalamin (vitamin B-12) 1,000 mcg Capsule 1,000 mcg PO QAM RF: 0 albuterol sulfate 90 mcg/actuation Hfa Aerosol Inhaler 1 inh INHALATION QID PRN (Reason: Shortness Of Breath Or Wheezing) RF: 0 Changed metoprolol succinate 100 mg Tablet Extended Release 24 Hr 50 mg PO HS Qty: 0 RF: 0 Discharge Orders: Discharge Order (Routine); Ordered 03/26/22 Ordered By: Laura Corona Admission Data Admit Date/Time: 03/21/22 13:28 Attending Provider: Laura Corona Admit Provider: Srinivasan Abraham Primary Care Provider: Paulette Johnson Other Providers: Srinivasan Abraham ; [facility] ; [facility] Coding Level of Care Code D/C DAY MANAGEMENT >30 MINS Diagnoses Pneumonia due to COVID-19 virus U07.1; J12.82 Sore throat J02.9 Anxiety F41.9 Chronic respiratory failure with hypoxia J96.11 History of pulmonary embolus (PE) Z86.711 COPD with exacerbation J44.1 BPH (benign prostatic hyperplasia) N40.0 Rheumatoid arthritis M06.9 Failure to thrive in adult R62.7 Chronic renal failure, stage 3b N18.32 Permanent atrial fibrillation I48.21
== END 2022-03-26 18:55 | disposition home health service (06) | DRG 177 ==
LOC: ED 14:18 → 2E 14:18 → SUATTDRO 18:32 → 2E 22:40 → SUATTDRO 03-21 13:28 → 3N 03-21 18:45